=== PATIENT | male | born 1935 | race Caucasian/White ===

== ENCOUNTER 2018-10-20 21:05 | Observation (INO) | payer MEDICARE, OTHER, SELFPAY ==
[2018-10-20 21:38] VITALS: BMI 20.7
[2018-10-20 21:46] VITALS: BP 139/71; PULSE 62; RESP 18; TEMP 36.6; O2SAT 95; BMI 20.7
[2018-10-20 21:51] LABS: Microscopic, Urine URINE MICROSCOPIC (MICROSCOPIC)
--- NOTE | 2018-10-20 21:52 | CT_ITS ---
CT abdomen pelvis wo con CLINICAL INDICATION: Urinary retention ITS.REASON: urine retention ORDERING PHYSICIAN: Juice Brown MD PATIENT AGE: 83 years COMPARISON: None TECHNIQUE: Axial images obtained with sagittal and coronal reformats. All CT scans at the facility use one or more dose reduction, viz: automated exposure control, ma/kV adjustment per patient size (including targeted exams where dose is matched to indication, i.e. head), or iterative reconstruction technique. PROCEDURE: Oral Contrast: None IV Contrast: None . FINDINGS: There are mild atelectatic changes in the lung bases. Coronary artery calcifications are noted. The liver, gallbladder, spleen, adrenal glands, pancreas, and kidneys have an unremarkable appearance. There is a small umbilical hernia containing fat. Wilson catheter present. Moderate amount of retained colonic feces. No intestinal obstruction or free air. No evidence of appendicitis or diverticulitis. Postsurgical changes of the right hip. Vertebral planus of L3 IMPRESSION: 1. Mild constipation. No acute abdominal or pelvic findings. 2. Wilson catheter in place. No hydronephrosis. No renal or ureteral calculi. 3. Vertebra plana of L3
[2018-10-20 21:53] LABS: Appearance,Urine CLEAR (Clear); Bilirubin,Urine Negative (Negative); Blood, Urine Negative (Negative); Color,Urine YELLOW (Yellow); Glucose,Urine (UA) Negative (Negative); Ketones,Urine Negative (Negative); Leukocyte Esterase,Urine 1+ (Negative); Nitrate,Urine Negative (Negative); Protein,Urine Negative (Negative)
[2018-10-20 21:56] LABS: WBC,Urine 20-50 #/hpf (0-3)
--- NOTE | 2018-10-20 21:59 | HMH.EDUROGM ---
ED Disposition Clinical Impression: Renal insufficiency, Elevated erythrocyte sedimentation rate Urinary tract infection Qualifiers: Urinary tract infection type: site unspecified Hematuria presence: without hematuria Qualified Code(s): N39.0 - Urinary tract infection, site not specified Anemia Qualifiers: Anemia type: unspecified type Qualified Code(s): D64.9 - Anemia, unspecified Disposition: Admitted as Observation Condition on Discharge: Good Instructions: DI for Urinary Tract Infection (UTI), DI for Urinary Tract Infection in Children Referrals: Juice Brown MD [Primary Care Provider] - - Critical Care Critical Care Time: No Attestation: On 10/20/18, the high probability of a clinically significant, sudden or life threatening deterioration of the following system(s) required my full and direct attention, intervention and personal management. The time I documented below is in addition to time spent performing reported procedures but includes the following listed in this critical care notation. Medical Decision Making - Medical Records Medical records reviewed: Yes: I reviewed the patient's medical records. - John Inquiry Pt receiving controlled substance: No Vital Signs: 10/20/18 21:46 10/20/18 23:42 Temperature 97.8 F Temperature Source Oral Pulse Rate [Right] 62 59 L Respiratory Rate 18 20 Blood Pressure [Right Arm] 139/71 134/58 L Blood Pressure Mean [Right Arm] 93 83 Blood Pressure Source [Right Arm] Automatic Cuff Automatic Cuff Blood Pressure Position [Right Arm] Supine Sitting 02 Sat by Pulse Oximetry 95 98 Oxygen Delivery Method Room Air Room Air - Lab Data Lab results reviewed: Yes: I reviewed the patient's lab results. Lab Results 10/20/18 21:45: Urine Color Yellow, Urine Appearance Clear, Urine pH 7.0, Ur Specific Lovely 1.010, Urine Protein Negative, Urine Glucose (UA) Negative, Urine Ketones Negative, Urine Blood Negative, Urine Nitrate Negative, Urine Bilirubin Negative, Urine Urobilinogen 2.0, Ur Leukocyte Esterase 1+ A, Urine WBC 20-50 10/20/18 21:55: WBC 10.6, RBC 3.69 L, Hgb 12.2 L, Hct 37.1 L, MCV 100.3 H, MCH 33.1 H, MCHC 33.0, RDW 13.7, Plt Count 373, MPV 7.2 L, Neut % (Auto) 39.7, Lymph % (Auto) 45.9, [place] % (Auto) 5.7, Eos % (Auto) 7.5, Baso % (Auto) 1.2, Neut # (Auto) 4.2, Lymph # (Auto) 4.9 H, [place] # (Auto) 0.6, Eos # (Auto) 0.8 H, Baso # (Auto) 0.1, ESR 53 H 10/20/18 21:55: Sodium 137, Potassium 4.0, Chloride 100, Carbon Dioxide 31, Anion Gap 10.0, BUN 26 H, Creatinine 1.49 H, Estimated Creat Clear 33, Estimated GFR 45 L, Est GFR ( Amer) 54 L, Glucose 102, Calcium 8.9, Total Bilirubin 0.3, AST 11 L, ALT 17, Alkaline Phosphatase 99, C-Reactive Protein 1.5 H, Total Protein 8.3 H, Albumin 3.5, Globulin 4.8 H, Albumin/Globulin Ratio 0.7 L 10/20/18 23:02: Lactate 0.8 Result diagrams: 10/20/18 21:55 10/20/18 21:55 Orders (Tests/Meds): ORDERS Category Date Time Status CT abdomen pelvis wo con Stat Cat Scan 10/20/18 21:52 Taken Blood Culture Stat Micro 10/20/18 23:02 Received Urine Culture Stat Micro 10/20/18 21:45 Received - CT Data CT Scan: Abdomen, Pelvis Time Received: 00:[address] Reviewed: Yes: I have viewed the radiologist's interpretation Preliminary Findings: Abnormal (nonspecific) Male Urogenital HPI - General Chief complaint: Urogenital-Male Stated complaint: Burning and cant uninate Time Seen by Provider: 10/20/18 21:55 Mode of Arrival: Wheelchair Source of Information: Patient, Relative, Medical Record Limitations: No Limitations Description of Symptoms (Recalled from ER Triage Doc. by RN): Pt unable to urinate today - History of Present Illness HPI Narrative: pt with dec urination and pain with urination over the last few days with dec po intake - no vomiting MD Complaint: dysuria Onset (ago): day(s) Duration: intermittent Severity: moderate Reports: denies other symptoms - Related Data Home Medications Medicati
[2018-10-20 22:15] LABS: Basophils # 0.1 K/mm3 (0-0.2); Basophils % 1.2 % (0.1-2.0); Eosinophils # 0.8 K/mm3 (0.0-0.4); Eosinophils % 7.5 % (0.1-12.0); Hematocrit 37.1 % (42.0-52.0); Hemoglobin 12.2 g/dL (14.1-18.0); Lymphocytes # 4.9 K/mm3 (0.7-4.5); Lymphocytes % 45.9 % (10-50); Mean Corpuscular Hemoglobin 33.1 pg (27.0-31.2); Mean Corpuscular Volume 100.3 fl (80-94); Mean Platelet Volume 7.2 fl (7.4-10.4); Monocytes # 0.6 K/mm3 (0.1-1.0); Monocytes % 5.7 % (1.7-9.3); Neutrophils # 4.2 K/mm3 (1.8-7.8); Neutrophils % 39.7 % (37.0-80.0); Platelet Count 373 K/mm3 (142-424); Red Blood Count 3.69 M/mm3 (4.60-6.20); Red Cell Distribution Width 13.7 % (11.5-17.5); White Blood Count 10.6 K/mm3 (4.8-10.8)
[2018-10-20 22:26] LABS: Alanine Aminotransferase 17 U/L (12-78); Albumin Level 3.5 gm/dL (3.4-5.0); Albumin/Globulin Ratio 0.7 (1.1-1.8); Alkaline Phosphatase 99 U/L (46-116); Aspartate Amino Transferase 11 U/L (15-37); Bilirubin,Total 0.3 mg/dL (0.2-1.0); Blood Urea Nitrogen 26 mg/dL (7-18); C-Reactive Protein 1.5 mg/L (0.0-0.9); Calcium 8.9 mg/dL (8.5-10.1); Carbon Dioxide 31 mmol/L (21.0-32.0); Chloride 100 mmol/L (98-107); Creatinine Clearance Estimated 33 mL/min (50-200); Creatinine,Serum 1.49 mg/dL (0.70-1.30); Estimated Glomerular Filt Rate 45 ml/min (>60); GFR (African American) 54 ML/MIN (>60); Globulin 4.8 gm/dl (1.3-3.2); Glucose 102 mg/dL (74-106); Sodium 137 mmol/L (136-145); Total Protein,Serum 8.3 gm/dL (6.4-8.2)
[2018-10-20 22:53] LABS: Erythrocyte Sedimentation Rate 53 mm/hr (0-20)
[2018-10-20 23:24] LABS: Lactic Acid 0.8 mmol/L (0.4-2.0)
[2018-10-20 23:42] VITALS: BP 134/58; PULSE 59; RESP 20; O2SAT 98
[2018-10-21 00:34] VITALS: BP 136/64; PULSE 64; RESP 16; TEMP 36.6; O2SAT 96
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
[2018-10-21 00:56] VITALS: BP 164/75; PULSE 56; RESP 18; TEMP 36.5; O2SAT 99; BMI 21.7
--- NOTE | 2018-10-21 01:00 | PC.NURSE ---
PT ARRIVED TO FLOOR VIA @ [phone]
[2018-10-21 01:19] VITALS: BMI 21.7
[2018-10-21 03:56] VITALS: BP 133/60; PULSE 67; RESP 17; TEMP 36.6; O2SAT 98
--- NOTE | 2018-10-21 05:34 | PC.NURSE ---
Pt arrived to med/surg department via wheelchair at 0100 at which time he received a bath. Pt has garbled speech and very [place] which makes conversation difficult. Urine junky and pt has reddened area on bilateral groin. Normal Saline infusing well and pt used urinal one time with 100ml recorded. Pt is not steady on his feet and quite weak in attempting to stand. He reports falling twice this past week, trying to get out of bed and into his wheelchair; once landing on buttocks and once landing on his right hip which he reports being tender but no visible bruising or redness identified even though he [facility], orbien and floor. C/o pain in multiple areas rating a 10 out of 10, PRN pain medication given with no further complaints and pt dozing off to sleep following administration with covers over his head as he reported that's how he likes to sleep. All safety measures in place per [facility] protocol, pt gave return demonstration environmental aide light use and it is w/i reach, will continue monitoring.
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
[2018-10-21 06:34] LABS: Basophils # 0.1 K/mm3 (0-0.2); Eosinophils # 0.8 K/mm3 (0.0-0.4); Eosinophils % 7.7 % (0.1-12.0); Hematocrit 34.3 % (42.0-52.0); Hemoglobin 11.3 g/dL (14.1-18.0); Lymphocytes % 39.7 % (10-50); Mean Corpuscular HGB Conc 32.8 g/dL (31.8-35.4); Mean Corpuscular Hemoglobin 32.9 pg (27.0-31.2); Mean Corpuscular Volume 100.2 fl (80-94); Mean Platelet Volume 7.1 fl (7.4-10.4); Monocytes # 0.6 K/mm3 (0.1-1.0); Monocytes % 5.9 % (1.7-9.3); Neutrophils # 4.6 K/mm3 (1.8-7.8); Neutrophils % 45.7 % (37.0-80.0); Platelet Count 340 K/mm3 (142-424); Red Blood Count 3.43 M/mm3 (4.60-6.20); Red Cell Distribution Width 13.6 % (11.5-17.5)
[2018-10-21 06:42] LABS: Anion Gap 9.7 mEq/L (5-15); Blood Urea Nitrogen 20 mg/dL (7-18); Calcium 8.6 mg/dL (8.5-10.1); Carbon Dioxide 30 mmol/L (21.0-32.0); Chloride 101 mmol/L (98-107); Creatinine Clearance Estimated 42 mL/min (50-200); Creatinine,Serum 1.24 mg/dL (0.70-1.30); Estimated Glomerular Filt Rate 56 ml/min (>60); GFR (African American) 67 ML/MIN (>60); Glucose 91 mg/dL (74-106); Magnesium 1.9 mg/dL (1.4-2.2); Potassium 3.7 mmoL/L (3.5-5.1); Sodium 137 mmol/L (136-145)
--- NOTE | 2018-10-21 07:02 | HMH.HP ---
*Admission Date: 10/21/18 *Chief complaint: Burning with urination *History of present illness: 83-year-old male with history of urinary tract infections presented to our emergency department with complaint of burning with urination. Patient himself this morning denies ever having fevers, nausea, vomiting. Patient does have a history of urinary tract infections and until recently had been living in [place] so most of his medical visits outside of office visits occurred through the [facility] in emergency department. Patient also has known coronary artery disease, peripheral arterial disease and chronic kidney disease as well as a severely arthritic right hip that requires assistive device to ambulate and for which she takes pain medication. In the past patient is even required indwelling catheter for his urinary tract infections although during a rehabilitation stay at a custodial facility patient remove the catheter on his own resulting in injury to the penis and urethra. [facility] History I have reviewed the patient's past medical history: Yes Medical History: Reports:: Chronic Obstructive Pulmonary Disease (COPD), Coronary Artery Disease Denies:: Cancer, Diabetes Mellitus Type 1, Diabetes Mellitus Type 2, MRSA *Have you ever received a pneumonia vaccine?: No *Have you received a flu vaccine this season?: Yes Comment:: Chronic kidney disease Laterality Cases: Right: Other, Bilateral: Cataract Other Surgeries: Yes: Cardiac Catheterization, Coronary Stent (x5) Amputation: No - *Social History Educational Level: Completed Grade School Smoking Status: Former smoker Tobacco Type: cigarettes # Packs/Day (cigarettes): 1 #Yrs smoked (if former smoker): 57 Smoking End Date: 2004 Alcohol Intake: never *Occupational Status:: retired Housing: house Household Members: family *Travel in the last 8 weeks: None - Psychiatric History Expresses thoughts of harming self/others: None Suicide Plan Description: No Plan Family Hx:: Unable to obtain Review of Systems - Review of Systems Review of systems:: pertinent systems reviewed and negative unless documented below - Constitutional Denies anorexia, Denies body ache(s), Denies chills, Denies daytime sleepiness, Denies excessive sweating, Denies fatigue, Denies fever(s), Denies lack of energy, Denies malaise, Denies weakness - ENT Reports abnormal hearing - *Cardiovascular Denies chest pain, Denies chest pain at rest - *Respiratory Denies chest congestion, Denies cough, Denies shortness of breath - *Gastrointestinal Denies abdominal pain, Denies belching, Denies bloating, Denies change in bowel habits, Denies constipation, Denies loose stools - *Genitourinary Reports difficulty urinating, Reports painful urination, Reports urinary hesitancy, Denies genital lesions, Denies genital pain, Denies blood in urine, Denies scrotal swelling, Denies urinary frequency - *Neurologic Denies seizure-like activity Meds Home Medications Medication Instructions Recorded Confirmed Type Clopidogrel Bisulfate [Clopidogrel 75 mg PO DAILY 04/27/18 04/27/18 History 75mg Tab] Finasteride [Proscar 5mg Tablet] 5 mg PO DAILY 04/27/18 04/27/18 History Furosemide [Furosemide 40MG tAB] 40 mg PO DAILY 04/27/18 04/27/18 History Gabapentin [Gabapentin 100mg Cap] 100 mg PO TID 04/27/18 04/27/18 History Losartan Potassium 50 mg PO DAILY 04/27/18 04/27/18 History Meclizine HCl [Antivert 25mg 25 mg PO TID 04/27/18 04/27/18 History tablet] Metoprolol Succinate 25 mg PO DAILY 04/27/18 04/27/18 History Omeprazole [Omeprazole 40mg 40 mg PO DAILY 04/27/18 04/27/18 History Capsule] Oxycodone HCl [Oxycodone (IR) 10mg 10 mg PO BID 04/27/18 04/27/18 History Tab] Potassium Chloride [Klor-con 20 20 meq PO DAILY 04/27/18 04/27/18 History mEq tablet] Tamsulosin HCl [Flomax 0.4mg 0.4 mg PO HS 04/27/18 04/27/18 History capsule] Allergies Allergy/AdvReac Type Severity [place]
--- NOTE | 2018-10-21 07:05 | P.HP_ITS ---
*Admission Date: 10/21/18 *Chief complaint: Burning with urination *History of present illness: 83-year-old male with history of urinary tract infections presented to our emergency department with complaint of burning with urination. Patient himself this morning denies ever having fevers, nausea, vomiting. Patient does have a history of urinary tract infections and until recently had been living in [place] so most of his medical visits outside of office visits occurred through the [facility] in emergency department. Patient also has known coronary artery disease, peripheral arterial disease and chronic kidney disease as well as a severely arthritic right hip that requires assistive device to ambulate and for which she takes pain medication. In the past patient is even required indwelling catheter for his urinary tract infections although during a rehabilitation stay at a correction facility patient remove the catheter on his own resulting in injury to the penis and urethra. [facility] History I have reviewed the patient's past medical history: Yes Medical History: Reports:: Chronic Obstructive Pulmonary Disease (COPD), Coronary Artery Disease Denies:: Cancer, Diabetes Mellitus Type 1, Diabetes Mellitus Type 2, MRSA *Have you ever received a pneumonia vaccine?: No *Have you received a flu vaccine this season?: Yes Comment:: Chronic kidney disease Laterality Cases: Right: Other, Bilateral: Cataract Other Surgeries: Yes: Cardiac Catheterization, Coronary Stent (x5) Amputation: No - *Social History Educational Level: Completed Grade School Smoking Status: Former smoker Tobacco Type: cigarettes # Packs/Day (cigarettes): 1 #Yrs smoked (if former smoker): 57 Smoking End Date: 2004 Alcohol Intake: never *Occupational Status:: retired Housing: house Household Members: family *Travel in the last 8 weeks: None - Psychiatric History Expresses thoughts of harming self/others: None Suicide Plan Description: No Plan Family Hx:: Unable to obtain Review of Systems - Review of Systems Review of systems:: pertinent systems reviewed and negative unless documented below - Constitutional Denies anorexia, Denies body ache(s), Denies chills, Denies daytime sleepiness, Denies excessive sweating, Denies fatigue, Denies fever(s), Denies lack of energy, Denies malaise, Denies weakness - ENT Reports abnormal hearing - *Cardiovascular Denies chest pain, Denies chest pain at rest - *Respiratory Denies chest congestion, Denies cough, Denies shortness of breath - *Gastrointestinal Denies abdominal pain, Denies belching, Denies bloating, Denies change in bowel habits, Denies constipation, Denies loose stools - *Genitourinary Reports difficulty urinating, Reports painful urination, Reports urinary hesitancy, Denies genital lesions, Denies genital pain, Denies blood in urine, Denies scrotal swelling, Denies urinary frequency - *Neurologic Denies seizure-like activity Meds Home Medications Medication Instructions Recorded Confirmed Type Clopidogrel Bisulfate [Clopidogrel 75 mg PO DAILY 04/27/18 04/27/18 History 75mg Tab] Finasteride [Proscar 5mg Tablet] 5 mg PO DAILY 04/27/18 04/27/18 History Furosemide [Furosemide 40MG tAB] 40 mg PO DAILY 04/27/18 04/27/18 History Gabapentin [Gabapentin 100mg Cap] 100 mg PO TID 04/27/18 04/27/18 History Losartan Potassium 50 mg PO DAILY 04/27/18 04/27/18 History Meclizine HCl [Antivert 25mg 25 mg PO TID 04/27/18 04/27/18 History tablet] Met[place]
--- NOTE | 2018-10-21 07:07 | HMH.DCSUM ---
General - General Admission date:: 10/21/18 Discharge date: 10/21/18 HPI HPI: 83-year-old male with history of urinary tract infections presented to our emergency department with complaint of burning with urination. Patient himself this morning denies ever having fevers, nausea, vomiting. Patient does have a history of urinary tract infections and until recently had been living in [place] so most of his medical visits outside of office visits occurred through the [facility] in emergency department. Patient also has known coronary artery disease, peripheral arterial disease and chronic kidney disease as well as a severely arthritic right hip that requires assistive device to ambulate and for which she takes pain medication. In the past patient is even required indwelling catheter for his urinary tract infections although during a rehabilitation stay at a alf facility patient remove the catheter on his own resulting in injury to the penis and urethra. Hospital Course Hospital Course: Patient was admitted and observed for worsening signs of infection. Urinary tract infection was treated with Rocephin 1 g intravenously. As the day progressed patient's symptoms of dysuria improved and he never developed fevers. He was discharged home in the afternoon of October 21 Objective Vital signs: Temp Pulse Resp BP Pulse Ox 97.9 F 67 17 133/60 98 10/21/18 03:56 10/21/18 03:56 10/21/18 03:56 10/21/18 03:56 10/21/18 03:56 Results Labs on day of discharge: Labs from last 24 hours 10/21/18 10/21/18 10/20/18 06:17 06:17 23:02 WBC 10.0 RBC 3.43 L Hgb 11.3 L Hct 34.3 L MCV 100.2 H MCH 32.9 H MCHC 32.8 RDW 13.6 Plt Count 340 MPV 7.1 L Neut % (Auto) 45.7 Lymph % (Auto) 39.7 [place] % (Auto) 5.9 Eos % (Auto) 7.7 Baso % (Auto) 1.0 Neut # (Auto) 4.6 Lymph # (Auto) 4.0 [place] # (Auto) 0.6 Eos # (Auto) 0.8 H Baso # (Auto) 0.1 ESR Sodium 137 Potassium 3.7 Chloride 101 Carbon Dioxide 30 Anion Gap 9.7 BUN 20 H Creatinine 1.24 Estimated Creat Clear 42 Estimated GFR 56 L Est GFR ( Amer) 67 D Glucose 91 Lactate 0.8 Calcium 8.6 Magnesium 1.9 Total Bilirubin AST ALT Alkaline Phosphatase C-Reactive Protein Total Protein Albumin Globulin Albumin/Globulin Ratio Urine Color Urine Appearance Urine pH Ur Specific Robinson Urine Protein Urine Glucose (UA) Urine Ketones Urine Blood Urine Nitrate Urine Bilirubin Urine Urobilinogen Ur Leukocyte Esterase Urine WBC 10/20/18 10/20/18 10/20/18 21:55 21:55 21:45 WBC 10.6 RBC 3.69 L Hgb 12.2 L Hct 37.1 L MCV 100.3 H MCH 33.1 H MCHC 33.0 RDW 13.7 Plt Count 373 MPV 7.2 L Neut % (Auto) 39.7 Lymph % (Auto) 45.9 [place] % (Auto) 5.7 Eos % (Auto) 7.5 Baso % (Auto) 1.2 Neut # (Auto) 4.2 Lymph # (Auto) 4.9 H [place] # (Auto) 0.6 Eos # (Auto) 0.8 H Baso # (Auto) 0.1 ESR 53 H Sodium 137 Potassium 4.0 Chloride 100 Carbon Dioxide 31 Anion Gap 10.0 BUN 26 H Creatinine 1.49 H Estimated Creat Clear 33 Estimated GFR 45 L Est GFR ( Amer) 54 L Glucose 102 Lactate Calcium 8.9 Magnesium Total Bilirubin 0.3 AST 11 L ALT 17 Alkaline Phosphatase 99 C-Reactive Protein 1.5 H Total Protein 8.3 H Albumin 3.5 Globulin 4.8 H Albumin/Globulin Ratio 0.7 L Urine Color Yellow Urine Appearance Clear Urine pH 7.0 Ur Specific [place] 1.010 Urine Protein Negative Urine Glucose (UA) Negative Urine Ketones Negative Urine Blood Negative Urine Nitrate Negative Urine Bilirubin Negative Urine Urobilinogen 2.0 Ur Leukocyte Esterase 1+ A Urine WBC 20-50 DS: Diagnosis - Discharge Diagnosis (
--- NOTE | 2018-10-21 07:17 | PC.NURSE ---
Shift report given to Thiago Koehler RN with no changes from previous note.
[2018-10-21 07:47] VITALS: BP 117/52; PULSE 67; RESP 16; TEMP 36.4; O2SAT 98
--- NOTE | 2018-10-21 08:19 | HMH.PHAVTE ---
[facility] Pharmacy VTE Monitoring - Patient Demographics Admission date: 10/20/18 Report Date: 10/21/18 Time: 08:19 Allergies/Adverse Reactions: Patient Allergies cephalexin [From Keflex] Allergy (Verified 10/21/18 00:24) Height: 1.75 m Weight: 66.735 kg Patient Problems: Current Active Problems (Updated 10/21/18 @ 00:16 by Tomas Chi MD) Urinary tract infection (Acute) Renal insufficiency (Acute) Elevated erythrocyte sedimentation rate (Acute) Anemia (Acute) - VTE Risk Labs: VTE Related Lab Results Hgb 11.3 g/dL (14.1-18.0) L 10/21/18 06:17 Hct 34.3 % (42.0-52.0) L 10/21/18 06:17 Plt Count 340 K/mm3 (142-424) 10/21/18 06:17 BUN 20 mg/dL (7-18) H 10/21/18 06:17 Creatinine 1.24 mg/dL (0.70-1.30) 10/21/18 06:17 Estimated Creat Clear 42 mL/min (50-200) 10/21/18 06:17 VTE Score: 2 VTE Risk Level: Very Low Risk - Prophylaxis VTE Prophylaxis Ordered?: Yes Types of VTE Prophylaxis: TEDS Knee High Location of Applied Device: Bilateral Lower Extremeties - VTE Diagnosis Confirmed Treatment or plan recommended: Continue Current Treatment
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
--- NOTE | 2018-10-21 14:58 | PC.NURSE ---
ATTEMPTED TO CALL PT'S SON AT THIS TIME FOR TRANSPORTATION HOME.
[2018-10-21 16:00] VITALS: BP 118/59; PULSE 66; RESP 18; TEMP 37.2; O2SAT 98
--- NOTE | 2018-10-21 16:28 | PC.NURSE ---
tried calling pt's son again. no answer.
== END 2018-10-21 17:50 | disposition home or self-care (01) ==
LOC: ER 21:14 → 2ND 10-21 00:16
PROVIDERS: Admitting Provider Emergency Medicine; Emergency Provider Emergency Medicine; PCP Family Medicine; Visit Provider Family Medicine
DX: N39.0 Urinary tract infection, site not specified (principal); D64.9 Anemia, unspecified; N28.9 Disorder of kidney and ureter, unspecified; R70.0 Elevated erythrocyte sedimentation rate; J44.9 Chronic obstructive pulmonary disease, unspecified; I25.10 Atherosclerotic heart disease of native coronary artery without angina pectoris; N18.9 Chronic kidney disease, unspecified; I73.9 Peripheral vascular disease, unspecified; Z79.02 Long term (current) use of antithrombotics/antiplatelets; Z79.899 Other long term (current) drug therapy; Z88.8 Allergy status to other drugs, medicaments and biological substances; Z87.891 Personal history of nicotine dependence; Z95.5 Presence of coronary angioplasty implant and graft
CPT/HCPCS: 36415; 74176; 80048; 80053; 81001; 83605; 83735; 85025; 85651; 86140; 87040; 87086; 87088; 87186; 96365; 99285; G0378

== ENCOUNTER 2019-01-28 18:51 | Observation (INO) ==
[2019-01-28 19:21] LABS: Basophils % 0.3 % (0.1-2.0); Eosinophils # 0.7 K/mm3 (0.0-0.4); Hematocrit 40.4 % (42.0-52.0); Hemoglobin 13.1 g/dL (14.1-18.0); Lymphocytes # 2.3 K/mm3 (0.7-4.5); Lymphocytes % 19.3 % (10-50); Mean Corpuscular HGB Conc 32.3 g/dL (31.8-35.4); Mean Corpuscular Volume 104.2 fl (80-94); Mean Platelet Volume 7.2 fl (7.4-10.4); Monocytes # 0.6 K/mm3 (0.1-1.0); Monocytes % 5.2 % (1.7-9.3); Neutrophils # 8.3 K/mm3 (1.8-7.8); Neutrophils % 69.1 % (37.0-80.0); Platelet Count 385 K/mm3 (142-424); Red Blood Count 3.88 M/mm3 (4.60-6.20); Red Cell Distribution Width 13.5 % (11.5-17.5)
[2019-01-28 19:25] LABS: Microscopic, Urine URINE MICROSCOPIC (MICROSCOPIC)
--- NOTE | 2019-01-28 19:26 | Emergency Department Note ---
ED Disposition Clinical Impression: Acute urinary retention Altered mental status Qualifiers: Altered mental status type: unspecified Qualified Code(s): R41.82 - Altered mental status, unspecified Disposition: Admitted As Inpatient Condition on Discharge: Good Instructions: DI for Diarrhea and Traveler's Diarrhea -- Adult, DI for Diarrhea and Traveler's Diarrhea -- Child, DI for Nausea -- Adult, DI for Nausea -- Child Referrals: Juice Brown MD [Primary Care Provider] - - Critical Care Critical Care Time: No Attestation: On 01/28/19, the high probability of a clinically significant, sudden or life threatening deterioration of the following system(s) required my full and direct attention, intervention and personal management. The time I documented below is in addition to time spent performing reported procedures but includes the following listed in this critical care notation. Medical Decision Making - Medical Records Medical records reviewed: Yes: I reviewed the patient's medical records. - John Inquiry Pt receiving controlled substance: No Vital Signs: 01/28/19 18:52 01/28/19 19:00 01/28/19 19:52 Temperature 98.1 F 98.1 F 100.5 F H Temperature Source Oral Oral Rectal Pulse Rate [Right Brachial] 87 87 82 Respiratory Rate 18 18 18 Blood Pressure [Right Arm] 112/60 112/60 118/62 Blood Pressure Mean [Right Arm] 77 77 80 Blood Pressure Source [Right Arm] Automatic Cuff Automatic Cuff Automatic Cuff Blood Pressure Position [Right Arm] Sitting Sitting Sitting 02 Sat by Pulse Oximetry 97 97 97 Oxygen Delivery Method Room Air Room Air Room Air 01/28/19 20:00 01/28/19 21:00 Temperature Temperature Source Pulse Rate [Right Brachial] 82 82 Respiratory Rate 18 18 Blood Pressure [Right Arm] 117/59 L 122/61 Blood Pressure Mean [Right Arm] 78 81 Blood Pressure Source [Right Arm] Automatic Cuff Automatic Cuff Blood Pressure Position [Right Arm] Sitting Sitting 02 Sat by Pulse Oximetry 97 97 Oxygen Delivery Method Room Air Room Air - Lab Data Lab results reviewed: Yes: I reviewed the patient's lab results. Lab Results 01/28/19 19:10: Urine Color Yellow, Urine Appearance Clear, Urine pH 6.0, Ur Specific [place] 1.015, Urine Protein Negative, Urine Glucose (UA) Negative, Urine Ketones Negative, Urine Blood Negative, Urine Nitrate Negative, Urine Bilirubin Negative, Urine Urobilinogen 0.2, Ur Leukocyte Esterase Negative, Urine WBC 5-10, Ur Squamous Epith Cells Occasional, Urine Bacteria Trace 01/28/19 19:10: WBC 12.0 H, RBC 3.88 L, Hgb 13.1 L, Hct 40.4 L, MCV 104.2 H, MCH 33.6 H, MCHC 32.3, RDW 13.5, Plt Count 385, MPV 7.2 L, Neut % (Auto) 69.1, Lymph % (Auto) 19.3, [place] % (Auto) 5.2, Eos % (Auto) 6.0, Baso % (Auto) 0.3, Neut # (Auto) 8.3 H, Lymph # (Auto) 2.3, [place] # (Auto) 0.6, Eos # (Auto) 0.7 H, Baso # (Auto) 0.0 01/28/19 19:10: Sodium 140, Potassium 3.8, Chloride 103, Carbon Dioxide 26, Anion Gap 14.8, BUN 17, Creatinine 1.19, Estimated Creat Clear 50, Estimated GFR 58 L, Est GFR ( Amer) 70, Glucose 92, Calcium 9.4, Total Bilirubin 0.3, AST 18, ALT 20, Alkaline Phosphatase 79, Total Protein 7.9, Albumin 3.6, Globulin 4.3 H, Albumin/Globulin Ratio 0.8 L 01/28/19 19:10: Lipase 80 01/28/19 19:50: Lactate 1.1 Result diagrams: 01/28/19 19:10 01/28/19 19:10 Orders (Tests/Meds): ED MEDICATIONS Generic Name Dose Route Start Last Admin Trade Name Freq PRN Reason Stop Dose Admin Sodium Chloride 1,000 mls @ 999 mls/hr 01/28/19 20:00 01/28/19 19:56 Sod Chlor 0.9% 1000ml Bag IV 01/28/19 21:00 999 mls/hr .[id number] MARIAH Administration Discontinued Medications Generic Name Dose Route Start Last Admin Trade Name Freq PRN Reason Stop Dose Admin Ioversol 75 ml 01/28/19 20:29 01/28/19 20:29 Rad-Optiray 350 100ml Vial IV 01/28/19 20:30 75 ml ONCE ONE Administration Protocol Sodium Chloride 10 ml 01/28/19 20:29 01/28/19 20:29 Rad-Saline Flush 10ml Syringe IV 01/28/19 20:30 10 ml ONCE ONE Administration ORDERS Category Date Time Status CT abdomen pelvis w con Stat Cat Scan 01/28/19 19:34 Taken CXR AP view [XR chest AP] Stat Exams 01/28/19 19:33 Taken Diarrhea 23 Panel, PCR Stat Lab 01/28/19 19:08 Ordered Blood Culture Stat Micro 01/28/19 19:50 Received Urine Culture(cathed specimen) Routine Micro 01/28/19 22:12 Ordered - CT Data CT Scan: Abdomen, Pelvis Time Received: 22:[address] Reviewed: Yes: I have viewed the radiologist's interpretation - ECG Data Tracing #1 Normal Sinus Rhythm: Yes Ischemic changes: non-specific ST-T wave changes Conduction abnormalities present: RBBB - Physician Consults Physician Consulted: shaji Reason -: Admission Nausea/Vomiting/Diarrhea HPI - General Chief complaint: Nausea/Vomiting/Diarrhea Stated complaint: weakness Time Seen by Provider: 01/28/19 19:26 Mode of Arrival: EMS Source of Information: Patient, Medical Record Limitations: No Limitations Description of Symptoms (Recalled from ER Triage Doc. by RN): Pt c/o weakness, abd pain, and diarrhea x 3 days. - History of Present Illness HPI Narrative: this wm was brought by ems with change in mental status with dec po intake and reported diarrhea - pt has hx of memory problem - no chest pain MD complaint: diarrhea, abdominal pain Onset (ago): day(s) Associated Abdominal Pain: Yes Location of pain: diffuse Severity: moderate Associated symptoms: denies other symptoms - Related Data Home Medications Medication Instructions Recorded Confirmed Clopidogrel Bisulfate [Clopidogrel 75 mg PO DAILY 04/27/18 01/28/19 75mg Tab] Finasteride [Proscar 5mg Tablet] 5 mg PO DAILY 04/27/18 01/28/19 Furosemide [Furosemide 40MG tAB] 40 mg PO DAILY 04/27/18 01/28/19 Losartan Potassium 50 mg PO DAILY 04/27/18 01/28/19 Metoprolol Succinate 25 mg PO DAILY 04/27/18 01/28/19 Omeprazole [Omeprazole 40mg 40 mg PO DAILY 04/27/18 01/28/19 Capsule] Potassium Chloride [Klor-con 20 20 meq PO DAILY 04/27/18 01/28/19 mEq tablet] Tamsulosin HCl [Flomax 0.4mg 0.4 mg PO HS 04/27/18 01/28/19 capsule] Allergies Allergy/AdvReac Type Severity Reaction Status Date / Time cephalexin [From Keflex] Allergy Verified 10/21/18 00:24 [facility] History - Hepatitis A Screen Drug use history?: No High risk sexual behaviors?: No History of sexually transmitted infection?: No Currently employed?: No Childcare worker?: No Do you have indoor plumbing?: Yes Do you have electricity?: Yes Attestation statement:: This patient has been screened for Hepatitis A risk factors. I have reviewed the patient's past medical history: Yes Medical History: Reports:: Chronic Obstructive Pulmonary Disease (COPD), Anson nary Artery Disease Denies:: Cancer, Diabetes Mellitus Type 1, Diabetes Mellitus Type 2, MRSA Comment: Chronic kidney disease Laterality Cases: Right: Other Other Surgeries: Yes: Cardiac Catheterization, Coronary Stent (x5) Amputation: No - Social History Smoking Status: Former smoker Tobacco Type: cigarettes # Packs/Day (cigarettes): 1 #Yrs smoked (if former smoker): 57 Alcohol Intake: never Occupational Status: retired Housing: house Household Members: family Family Hx:: Unable to obtain ROS Obtained: Yes All systems reviewed & no additional complaints - Constitutional Constitutional: Reports as per HPI, Reports poor appetite, Reports weakness - Eyes Eyes: Denies change in vision - ENT Ears, Nose, Mouth, and Throat: Denies sore throat - Cardiovascular Cardiovascular: Denies chest pain - Respiratory Respiratory: Yes as per HPI, Yes cough - Gastrointestinal Gastrointestingal: Reports: as per HPI, diarrhea, nausea, vomiting. Denies: black, tarry stools - Genitourinary Male Genitourinary: Denies hematuria - Musculoskeletal Musculoskeletal: Denies joint swelling - Integumentary/Breasts Skin/Breast: Denies rash - Neurologic Neurologic: Denies convulsions Physical Exam - General General appearance: lethargic - Head Head exam: normocephalic - Eye Eye exam: Present: PERRL, EOMI. Absent: scleral icterus - ENT ENT exam: Present: mucous membranes dry - Neck Neck exam: Present: trachea midline - Respiratory Respiratory exam: Absent: respiratory distress - Cardiovascular Cardiovascular exam: Present: regular rate, systolic murmur, +S4 - Abdominal Exam Abdominal exam: Present: soft - Extremities Exam Extremities exam: Present: pedal edema - Neurological Exam Neurological exam: Present: alert, CN II-XII intact, other (confused ) - Skin Skin exam: Absent: rash
[2019-01-28 19:46] LABS: Albumin Level 3.6 gm/dL (3.4-5.0); Albumin/Globulin Ratio 0.8 (1.1-1.8); Anion Gap 14.8 mEq/L (5-15); Bilirubin,Total 0.3 mg/dL (0.2-1.0); Calcium 9.4 mg/dL (8.5-10.1); Globulin 4.3 gm/dl (1.3-3.2); Total Protein,Serum 7.9 gm/dL (6.4-8.2)
[2019-01-28 19:51] LABS: Appearance,Urine CLEAR (Clear); Bilirubin,Urine Negative (Negative); Blood, Urine Negative (Negative); Color,Urine YELLOW (Yellow); Glucose,Urine (UA) Negative (Negative); Ketones,Urine Negative (Negative); Leukocyte Esterase,Urine Negative (Negative); Protein,Urine Negative (Negative); Specific Gravity, Urine 1.015 (1.005-1.030); Urobilinogen,Urine 0.2 EU/dl (0.2)
[2019-01-28 20:02] LABS: Bacteria,Urine Trace /lpf; Squamous Epithelial Cell,Urine Occasional #/hpf (0-5)
[2019-01-28 23:07] LABS: Thyroid Stimulating Hormone 1.42 uIU/ml (0.358-3.740)
[2019-01-29 04:53] LABS: Anion Gap 11.3 mEq/L (5-15)
[2019-01-29 04:59] LABS: Basophils # 0.1 K/mm3 (0-0.2); Basophils % 0.5 % (0.1-2.0); Eosinophils # 0.8 K/mm3 (0.0-0.4); Eosinophils % 7.2 % (0.1-12.0); Hematocrit 33.8 % (42.0-52.0); Lymphocytes # 2.9 K/mm3 (0.7-4.5); Lymphocytes % 27.5 % (10-50); Mean Corpuscular HGB Conc 32.1 g/dL (31.8-35.4); Mean Corpuscular Volume 103.2 fl (80-94); Mean Platelet Volume 7.4 fl (7.4-10.4); Monocytes # 0.7 K/mm3 (0.1-1.0); Monocytes % 6.1 % (1.7-9.3); Neutrophils # 6.3 K/mm3 (1.8-7.8); Neutrophils % 58.7 % (37.0-80.0); Platelet Count 334 K/mm3 (142-424); Red Blood Count 3.28 M/mm3 (4.60-6.20); Red Cell Distribution Width 13.4 % (11.5-17.5); White Blood Count 10.7 K/mm3 (4.8-10.8)
[2019-01-29 05:09] LABS: Hemoglobin 10.9 g/dL (14.1-18.0)
--- NOTE | 2019-01-29 07:37 | History & Physical Report ---
*Admission Date: 01/28/19 *Chief complaint: Diarrhea *History of present illness: 83-year-old male brought to the emergency department because of diarrhea and weakness. Patient was brought by family who is not present this morning and patient himself is unaware of any additional history other than diarrhea for the last 2 to 3 days along with weakness and increasing difficulty ambulating. Patient has a hard time ambulating anyway due to severe osteoarthritis of the right hip for which she will use a crutch to aid with walking. Typically when he comes into the office patient is in a wheelchair. Some additional history was obtained from the ER note. Ultimately patient was admitted due to urinary retention, diarrhea for continued work-up with stool studies pending, and altered mental status. [facility] History I have reviewed the patient's past medical history: Yes Medical History: Reports:: Chronic Obstructive Pulmonary Disease (COPD), Coronary Artery Disease Denies:: Cancer, Diabetes Mellitus Type 1, Diabetes Mellitus Type 2, MRSA *Have you ever received a pneumonia vaccine?: Yes *Have you received a flu vaccine this season?: Yes Other Medical History: Reports: Arthritis Laterality Cases: Right: Other Other Surgeries: Yes: Cardiac Catheterization, Coronary Stent (x5) Amputation: No - *Social History Smoking Status: Former smoker Tobacco Type: cigarettes # Packs/Day (cigarettes): 1 #Yrs smoked (if former smoker): 57 Alcohol Intake: never *Occupational Status:: retired Housing: house Household Members: family *Travel in the last 8 weeks: None - Psychiatric History Expresses thoughts of harming self/others: None Suicide Plan Description: No Plan Family Hx:: Unable to obtain Review of Systems - Constitutional Denies anorexia, Denies body ache(s), Denies chills, Denies fatigue, Denies fever(s) - *Cardiovascular Denies chest pain - *Respiratory Reports chest congestion, Reports cough, Denies shortness of breath - *Gastrointestinal Reports loose stools, Denies abdominal pain, Denies belching, Denies bloating, D enies bright, red blood in stools, Denies black, tarry stools - *Genitourinary Denies difficulty urinating, Denies painful urination - *Neurologic Reports weakness, Denies seizure-like activity Meds Home Medications Medication Instructions Recorded Confirmed Type Clopidogrel Bisulfate [Clopidogrel 75 mg PO DAILY 04/27/18 01/28/19 History 75mg Tab] Finasteride [Proscar 5mg Tablet] 5 mg PO DAILY 04/27/18 01/28/19 History Furosemide [Furosemide 40MG tAB] 40 mg PO DAILY 04/27/18 01/28/19 History Losartan Potassium 50 mg PO DAILY 04/27/18 01/28/19 History Metoprolol Succinate 25 mg PO DAILY 04/27/18 01/28/19 History Omeprazole [Omeprazole 40mg 40 mg PO DAILY 04/27/18 01/28/19 History Capsule] Potassium Chloride [Klor-con 20 20 meq PO DAILY 04/27/18 01/28/19 History mEq tablet] Tamsulosin HCl [Flomax 0.4mg 0.4 mg PO HS 04/27/18 01/28/19 History capsule] Allergies Allergy/AdvReac Type Severity Reaction Status Date / Time cephalexin [From Keflex] Allergy Verified 10/21/18 00:24 Exam Vital signs and Labs for Last 24 Hours: Temp Pulse Resp BP Pulse Ox 98.3 F 66 17 106/57 L 97 01/29/19 04:00 01/29/19 04:00 01/29/19 04:00 01/29/19 04:00 01/29/19 04:00 Laboratory Results - last 24 hr 01/28/19 19:10: Urine Color Yellow, Urine Appearance Clear, Urine pH 6.0, Ur Specific [place] 1.015, Urine Protein Negative, Urine Glucose (UA) Negative, Urine Ketones Negative, Urine Blood Negative, Urine Nitrate Negative, Urine Bilirubin Negative, Urine Urobilinogen 0.2, Ur Leukocyte Esterase Negative, Urine WBC 5-10, Ur Squamous Epith Cells Occasional, Urine Bacteria Trace 01/28/19 19:10: WBC 12.0 H, RBC 3.88 L, Hgb 13.1 L, Hct 40.4 L, MCV 104.2 H, MCH 33.6 H, MCHC 32.3, RDW 13.5, Plt Count 385, MPV 7.2 L, Neut % (Auto) 69.1, Lymph % (Auto) 19.3, [place] % (Auto) 5.2, Eos % (Auto) 6.0, Baso % (Auto) 0.3, Neut # (Auto) 8.3 H, Lymph # (Auto) 2.3, [place] # (Auto) 0.6, Eos # (Auto) 0.7 H, Baso # (Auto) 0.0 01/28/19 19:10: Sodium 140, Potassium 3.8, Chloride 103, Carbon Dioxide 26, Anion Gap 14.8, BUN 17, Creatinine 1.19, Estimated Creat Clear 50, Estimated GFR 58 L, Est GFR ( Amer) 70, Glucose 92, Calcium 9.4, Total Bilirubin 0.3, AST 18, ALT 20, Alkaline Phosphatase 79, Total Protein 7.9, Albumin 3.6, Globulin 4.3 H, Albumin/Globulin Ratio 0.8 L 01/28/19 19:10: Lipase 80 01/28/19 19:10: TSH 1.42, Thyroxine (T4) 7.6 01/28/19 19:50: Lactate 1.1 01/29/19 01:35: Troponin I < 0.02 01/29/19 04:40: Troponin I < 0.02 01/29/19 04:40: WBC 10.7, RBC 3.28 L, Hgb 10.9 L D, Hct 33.8 L, MCV 103.2 H, MCH 33.1 H, MCHC 32.1, RDW 13.4, Plt Count 334, MPV 7.4, Neut % (Auto) 58.7, Lymph % (Auto) 27.5, [place] % (Auto) 6.1, Eos % (Auto) 7.2, Baso % (Auto) 0.5, Neut # (Auto) 6.3, Lymph # (Auto) 2.9, [place] # (Auto) 0.7, Eos # (Auto) 0.8 H, Baso # (Auto) 0.1 01/29/19 04:40: Sodium 141, Potassium 3.3 L, Chloride 106, Carbon Dioxide 27, Anion Gap 11.3, BUN 16, Creatinine 1.25, Estimated Creat Clear 41, Estimated GFR 55 L, Est GFR ( Amer) 67, Glucose 95, Calcium 9.0 I & O for Last 24 hours: Intake & Output 01/26/19 01/27/19 01/28/19 01/29/19 11:59 11:59 11:59 11:59 Intake Total 290 / 290 Output Total 1750 / 1750 Balance -1460 / -1460 Weight 144 lb 6 oz Narrative: Patient is laying in bed. He awakens easily. He is oriented to person and place. He is able to hold conversation and responses are appropriate. Some speech is garbled and difficult to understand which is his baseline. He does not appear to be in any pain or respiratory distress. Oropharynx is moist. Neck has no palpable lymphadenopathy. Lungs are distant but clear. Heart has a regular rate and rhythm. Abdomen is thin and soft. 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 Extremities are warm to the touch and he has active range of motion in all extremities with decreased range of motion on hip flexion in the right hip which is also his baseline. Grossly there is no neurologic deficit Assessment and Plan (1) Acute urinary retention Current visit: Yes Status: Acute Category: Medical Code(s): R33.8 - Other retention of urine (2) Altered mental status Current visit: Yes Status: Acute Qualifiers: Altered mental status type: unspecified Qualified Code(s): R41.82 - Altered mental status, unspecified Category: Medical Code(s): R41.82 - Altered mental status, unspecified (3) Diarrhea Current visit: No Status: Acute Qualifiers: Diarrhea type: unspecified type Qualified Code(s): R19.7 - Diarrhea, unspecified Category: Medical Code(s): R19.7 - Diarrhea, unspecified - Assessment and plan all Dx Assessment and Plan for all problems:: 1. Altered mental status may have been from urinary retention which patient has a history of in his self catheterized at home in the past. Patient reports not feeling any sense of urinary urgency or pressure. 2. Await diarrhea panel 3. PT eval. On 4. Patient has history of urinary tract infections as of contributed to urinary retention and he will be started on empiric levofloxacin
--- NOTE | 2019-01-29 07:40 | Pharmacy Consult Notes ---
[facility] Pharmacy VTE Monitoring - Patient Demographics Admission date: 01/28/19 Report Date: 01/29/19 Time: 07:40 Allergies/Adverse Reactions: Patient Allergies cephalexin [From Keflex] Allergy (Verified 10/21/18 00:24) Height: 1.75 m Weight: 65.487 kg Patient Problems: Current Active Problems Altered mental status (Acute) Acute urinary retention (Acute) - VTE Risk Labs: VTE Related Lab Results Hgb 10.9 g/dL (14.1-18.0) L D 01/29/19 04:40 Hct 33.8 % (42.0-52.0) L 01/29/19 04:40 Plt Count 334 K/mm3 (142-424) 01/29/19 04:40 BUN 16 mg/dL (7-18) 01/29/19 04:40 Creatinine 1.25 mg/dL (0.70-1.30) 01/29/19 04:40 Estimated Creat Clear 41 mL/min (50-200) 01/29/19 04:40 - Prophylaxis VTE Prophylaxis Ordered?: Yes Types of VTE Prophylaxis: TEDS Knee High Location of Applied Device: Bilateral Lower Extremeties - VTE Diagnosis Confirmed Treatment or plan recommended: Continue Current Treatment
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
--- NOTE | 2019-01-29 17:31 | Electrocardiograph Report ---
APPROVED REPORT Exam: Resting ECG HR:84 bpm ECG Measurements Heart Rate 84 AXES HI 160 P 53 QRSd 126 QRS 58 QT 374 T28 QTc 441 <Conclusion> Normal sinus rhythm Right bundle branch block Abnormal ECG Electronically signed by : Jaxson Joaquin, 01/29/2019 17:30:48
[2019-01-30 07:19] LABS: Anion Gap 10.8 mEq/L (5-15)
[2019-01-30 07:20] LABS: Basophils # 0.1 K/mm3 (0-0.2); Basophils % 0.5 % (0.1-2.0); Eosinophils # 0.2 K/mm3 (0.0-0.4); Eosinophils % 2.2 % (0.1-12.0); Hematocrit 34.4 % (42.0-52.0); Hemoglobin 11.2 g/dL (14.1-18.0); Lymphocytes # 2.3 K/mm3 (0.7-4.5); Mean Corpuscular HGB Conc 32.5 g/dL (31.8-35.4); Mean Corpuscular Volume 104.1 fl (80-94); Mean Platelet Volume 7.6 fl (7.4-10.4); Monocytes # 0.6 K/mm3 (0.1-1.0); Monocytes % 5.5 % (1.7-9.3); Neutrophils # 7.8 K/mm3 (1.8-7.8); Neutrophils % 70.8 % (37.0-80.0); Platelet Count 349 K/mm3 (142-424); Red Cell Distribution Width 13.2 % (11.5-17.5)
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
== END 2019-01-30 15:25 | disposition home health service (06) ==
LOC: ER 18:51 → 2ND 18:51
PROVIDERS: ADMIT Internal Medicine Adolescent Medicine; ATTEND Family Medicine
DX: R33.9 Retention of urine, unspecified; I25.10 Atherosclerotic heart disease of native coronary artery without angina pectoris; A04.4 Other intestinal Escherichia coli infections; Z87.891 Personal history of nicotine dependence; R19.7 Diarrhea, unspecified; J44.9 Chronic obstructive pulmonary disease, unspecified; E03.9 Hypothyroidism, unspecified
CPT/HCPCS: 36415; 71010; 71045; 74177; 80048; 80053; 81001; 83605; 83690; 84436; 84443; 84484; 85025; 87040; 87077; 87507; 93005; 96365; 97161; 97530; 99285; G0378; J1956; Q9967

== ENCOUNTER 2019-06-05 03:34 | Observation (INO) ==
--- NOTE | 2019-06-05 03:46 | Emergency Department Note ---
ED Disposition Clinical Impression: Community acquired pneumonia Qualifiers: Laterality: right Lung location: middle lobe of lung Qualified Code(s): J18.9 - Pneumonia, unspecified organism Disposition: Admitted as Observation Condition on Discharge: Fair - Critical Care Critical Care Time: No Attestation: On , the high probability of a clinically significant, sudden or life threatening deterioration of the following system(s) required my full and direct attention, intervention and personal management. The time I documented below is in addition to time spent performing reported procedures but includes the following listed in this critical care notation. Medical Decision Making - John Inquiry Pt receiving controlled substance: No John was queried for this patient: Yes Reference #:: [id number] Comment: 21 rxs. Gets 75 percocet 10mg monthly along with gabapentin Vital Signs: 06/05/19 03:47 06/05/19 05:05 06/05/19 05:29 Temperature 98.7 F Temperature Source Oral Pulse Rate [Right] 96 H 82 82 Respiratory Rate 20 Blood Pressure [Right Arm] 115/57 L 132/61 131/55 L Blood Pressure Mean [Right Arm] 76 84 80 Blood Pressure Source [Right Arm] Automatic Cuff Blood Pressure Position [Right Arm] Sitting 02 Sat by Pulse Oximetry 94 L 96 97 Oxygen Delivery Method Room Air 06/05/19 06:00 06/05/19 06:30 06/05/19 07:02 Temperature Temperature Source Pulse Rate [Right] 80 78 72 Respiratory Rate Blood Pressure [Right Arm] 132/60 114/50 L 119/59 L Blood Pressure Mean [Right Arm] 84 71 79 Blood Pressure Source [Right Arm] Automatic Cuff Blood Pressure Position [Right Arm] Sitting 02 Sat by Pulse Oximetry 95 96 95 Oxygen Delivery Method Room Air - Lab Data Lab Results 06/05/19 03:55: WBC 23.4 H*, RBC 3.20 L, Hgb 11.2 L, Hct 33.0 L, MCV 103.3 H, MCH 35.1 H, MCHC 34.0, RDW 13.5, Plt Count 261, MPV 8.8, Neut % (Auto) 85.0 H, Lymph % (Auto) 11.0, [place] % (Auto) 3.1, Eos % (Auto) 0.6, Baso % (Auto) 0.1, Neut # (Auto) 19.9 H, Lymph # (Auto) 2.6, [place] # (Auto) 0.7, Eos # (Auto) 0.2, Baso # (Auto) 0.0, Total Counted 100, Neutrophils % (Manual) 80 H, Band Neutrophils % 11.0 H, Lymphocytes % (Manual) 9 L, Hypersegmented Neuts 1+, Platelet Estimate Normal, Macrocytosis 2+ 06/05/19 03:55: Sodium 135 L, Potassium 3.8, Chloride 99, Carbon Dioxide 24, Anion Gap 15.8 H, BUN 29 H, Creatinine 1.34 H, Estimated Creat Clear 41, Estimated GFR 51 L, Est GFR ( Amer) 61, Glucose 155 H, Calcium 9.0, Total Bilirubin 0.8, AST 14 L, ALT 15, Alkaline Phosphatase 75, Troponin I < 0.02, Total Protein 7.3, Albumin 3.1 L, Globulin 4.2 H, Albumin/Globulin Ratio 0.7 L, Amylase 20 L, Lipase 44 L 06/05/19 04:07: Urine Color Yellow, Urine Appearance Clear, Urine pH 6.0, Ur Specific Swengel 1.015, Urine Protein Trace, Urine Glucose (UA) Negative, Urine Ketones Negative, Urine Blood Trace-l, Urine Nitrate Negative, Urine Bilirubin Negative, Urine Urobilinogen 4.0, Ur Leukocyte Esterase Negative, Urine RBC Occasional, Amorphous Sediment Trace 06/05/19 05:26: Lactate 0.8 Result diagrams: 06/05/19 03:55 06/05/19 03:55 Orders (Tests/Meds): ED MEDICATIONS Generic Name Dose Route Start Last Admin Trade Name Freq PRN Reason Stop Dose Admin Ceftriaxone Sodium 1 gm/ 50 mls @ 100 mls/hr 06/05/19 05:30 06/05/19 05:46 Sodium Chloride IV 06/19/19 05:29 100 mls/hr Q24H MARIAH Administration Protocol Azithromycin 500 mg/ Sodium 250 mls @ 250 mls/hr 06/05/19 05:30 06/05/19 06:10 Chloride IV 06/19/19 05:29 250 mls/hr Q24H MARIAH Administration Protocol Discontinued Medications Generic Name Dose Route Start Last Admin Trade Name Freq PRN Reason Stop Dose Admin Ioversol 75 ml 06/05/19 05:20 06/05/19 05:21 Rad-Optiray 350 100ml Vial IV 06/05/19 05:21 75 ml ONCE ONE Administration Protocol Sodium Chloride 1,000 ml 06/05/19 04:04 06/05/19 04:11 Sod Chlor 0.9% 1000ml Bag IV 06/05/19 04:05 1,000 ml BOLUS ONE Administration Sodium Chloride 10 ml 06/05/19 05:20 06/05/19 05:21 Rad-Saline Flush 10ml Syringe IV 06/05/19 05:21 10 ml ONCE ONE Administration ORDERS Category Date Time Status CT abdomen pelvis w con Stat Cat Scan 06/05/19 04:04 Taken XR chest portable Stat Exams 06/05/19 04:05 Taken Diarrhea 6-11 Panel, Cdiff PCR Stat Lab 06/05/19 04:04 Ordered Troponin I Q3H Lab 06/05/19 07:15 Ordered Troponin I Q3H Lab 06/05/19 10:15 Ordered Blood Culture Stat Micro 06/05/19 05:25 Received - Radiology Data #1 Image(s): Chest Image Reviewed: Yes I reviewed the patient's radiology image pneumonia right lung - CT Data CT Scan: Abdomen, Pelvis Time Received: 06:52 ([facility] fax) ED CT Reviewed: Yes: I have viewed the radiologist's interpretation Findings Narrative: Pneumonia. No acute abdominal process. - ECG Data Tracing #1 EKG interpreted by Jama Mixon MD: Rhythm: sinus Rate: 85 [place]: normal Ectopy: none Conduction: Right bundle branch block ST Segment Changes: none T Wave Changes: none Q Waves: none No evidence of acute ischemia or injury - Physician Consults Physician Consulted: Georgia Brown Time: 07:00 Reason -: Admission Comment/Response: Agrees to admit the patient to the hospital. We discussed the patient's clinical information, including history, exam, laboratory and radiology results and ED course. Per hospital procedure, I will write temporary bridge inpatient orders on the patient. Specific orders requested by the admitting physician: Continue antibiotics Medical Decision Narrative: Patient has allergy listed take cephalexin, but records here show that he r eceived Rocephin while in the hospital for UTI in October without any apparent adverse reaction. General Adult HPI - General Stated complaint: Stomach pain,dark urine Time Seen by Provider: 06/05/19 03:55 - History of Present Illness HPI narrative: Patient is very hard of hearing and a poor historian. Grandson is also with him here and he is a poor historian as well. Patient says that his stomach is been bothering him for the past 2 weeks. He has had abdominal pain as well as diarrhea. Nakia did not think he had been vomiting, but patient says that he vomited up Cheerios. Grandlaureano says he had a fever before coming in tonight. He also says that the patient has been very weak and feels like he may be dehydrated. Says that he has been "disorientated". Cough for 1 week. Nakia says that he saw Dr. Brown 2 weeks ago and was told that he had a virus. - Related Data Home Medications Medication Instructions Recorded Confirmed Clopidogrel Bisulfate [Clopidogrel 75 mg PO DAILY 04/27/18 06/05/19 75mg Tab] Finasteride [Proscar 5mg Tablet] 5 mg PO DAILY 04/27/18 06/05/19 Furosemide [Furosemide 40MG tAB] 40 mg PO DAILY 04/27/18 06/05/19 Metoprolol Succinate 25 mg PO DAILY 04/27/18 06/05/19 Potassium Chloride [Klor-con 20 20 meq PO DAILY 04/27/18 06/05/19 mEq tablet] Tamsulosin HCl [Flomax 0.4mg 0.4 mg PO HS 04/27/18 06/05/19 capsule] Gabapentin [Gabapentin 100mg Cap] 200 mg PO TID 01/29/19 06/05/19 Losartan Potassium [Cozaar 50mg 50 mg PO DAILY 01/29/19 06/05/19 Tablets] Omeprazole/Sodium Bicarbonate 1 each PO DAILY 01/29/19 06/05/19 [Zegerid 40 mg Capsule] Oxycodone HCl/Acetaminophen 0.5 tab PO PM 01/29/19 06/05/19 [Oxycodone W/Apap 325mg Tablet] Oxycodone HCl/Acetaminophen 1 tab PO BID 01/29/19 06/05/19 [Oxycodone W/Apap 325mg Tablet] Allergies Allergy/AdvReac Type Severity Reaction Status Date / Time cephalexin [From Keflex] Allergy Verified 10/21/18 00:24 [facility] History - Hepatitis A Screen Attestation statement:: This patient has been screened for Hepatitis A risk factors. I have reviewed the patient's past medical history: Yes Medical History: Reports:: Chronic Obstructive Pulmonary Disease (COPD), Coronary Artery Disease Denies:: Cancer, Diabetes Mellitus Type 1, Diabetes Mellitus Type 2, MRSA Other Medical History: Reports: Arthritis Comment: Chronic kidney disease Laterality Cases: Right: Other Other Surgeries: Yes: Cardiac Catheterization, Coronary Stent (x5) Amputation: No - Social History Smoking Status: Former smoker Tobacco Type: cigarettes # Packs/Day (cigarettes): 1 #Yrs smoked (if former smoker): 57 Alcohol Intake: never Occupational Status: retired Housing: house Household Members: family Family Hx:: Unable to obtain ROS Obtained: Yes All systems reviewed & no additional complaints - Constitutional Constitutional: Reports fever(s) - Cardiovascular Cardiovascular: Denies chest pain - Respiratory Respiratory: Yes cough - Gastrointestinal Gastrointestingal: Reports: abdominal pain, diarrhea, nausea, vomiting Physical Exam - General General appearance: alert, in no apparent distress - Head Head exam: atraumatic, normocephalic - Eye Eye exam: Present: normal appearance, EOMI - ENT ENT exam: Present: mucous membranes moist - Neck Neck exam: Present: normal inspection, trachea midline - Chest Chest inspection: Present: normal inspection, symmetric chest wall rise - Respiratory Respiratory exam: Present: normal lung sounds bilaterally. Absent: respiratory distress - Cardiovascular Cardiovascular exam: Present: regular rate, normal rhythm, normal heart sounds - Abdominal Exam Abdominal exam: Present: soft, tenderness, normal bowel sounds. Absent: distention, guarding, rebound, rigidity Abdominal tenderness: Present: diffuse, mild - Extremities Exam Extremities exam: Present: normal inspection - Neurological Exam Neurological exam: Present: alert - Psychiatric Psychiatric exam: Present: normal affect, normal mood - Skin Skin exam: Present: warm, dry
[2019-06-05 04:10] LABS: Basophils % 0.1 % (0.1-2.0); Eosinophils # 0.2 K/mm3 (0.0-0.4); Eosinophils % 0.6 % (0.1-12.0); Hemoglobin 11.2 g/dL (14.1-18.0); Lymphocytes # 2.6 K/mm3 (0.7-4.5); Mean Corpuscular Volume 103.3 fl (80-94); Mean Platelet Volume 8.8 fl (7.4-10.4); Monocytes # 0.7 K/mm3 (0.1-1.0); Monocytes % 3.1 % (1.7-9.3); Neutrophils # 19.9 K/mm3 (1.8-7.8); Platelet Count 261 K/mm3 (142-424); Red Cell Distribution Width 13.5 % (11.5-17.5)
[2019-06-05 04:11] LABS: Microscopic, Urine URINE MICROSCOPIC (MICROSCOPIC)
[2019-06-05 04:17] LABS: White Blood Count 23.4 K/mm3 (4.8-10.8)
[2019-06-05 04:28] LABS: Alanine Aminotransferase 15 U/L (12-78); Albumin Level 3.1 gm/dL (3.4-5.0); Albumin/Globulin Ratio 0.7 (1.1-1.8); Alkaline Phosphatase 75 U/L (46-116); Amylase 20 U/L (25-115); Anion Gap 15.8 mEq/L (5-15); Aspartate Amino Transferase 14 U/L (15-37); Bilirubin,Total 0.8 mg/dL (0.2-1.0); Blood Urea Nitrogen 29 mg/dL (7-18); Carbon Dioxide 24 mmol/L (21.0-32.0); Chloride 99 mmol/L (98-107); Globulin 4.2 gm/dl (1.3-3.2); Glucose 155 mg/dL (74-106); Sodium 135 mmol/L (136-145); Total Protein,Serum 7.3 gm/dL (6.4-8.2)
[2019-06-05 04:48] LABS: Lymphocytes % 9 % (10-50); Macrocytosis 2+; Neutrophils % 80 % (42-76); Total Cells Counted 100
[2019-06-05 04:55] LABS: Appearance,Urine CLEAR (Clear); Bilirubin,Urine Negative (Negative); Blood, Urine TRACE-L (Negative); Color,Urine YELLOW (Yellow); Glucose,Urine (UA) Negative (Negative); Ketones,Urine Negative (Negative); Leukocyte Esterase,Urine Negative (Negative); Protein,Urine TRACE (Negative); Specific Gravity, Urine 1.015 (1.005-1.030)
[2019-06-05 04:56] LABS: Amorphous Sediment,Urine Trace /lpf; RBC,Urine Occasional #/hpf (0-3)
--- NOTE | 2019-06-05 08:55 | History & Physical Report ---
*Admission Date: 06/05/19 *Chief complaint: Abdominal pain, vomiting, fever, cough *History of present illness: 84-year-old male with COPD and coronary artery disease was brought to the emergency department by family due to multiple seemingly unconnected complaints. I have taken some of the history from the ER note where it is reported that family endorse patient had a cough and fever at home. The patient apparently told the ER physician or staff that he had had some abdominal pain for the last 2 weeks and had also experienced vomiting. At the time of my interview with the patient around 9 AM the morning of admission patient admits to a cough with clear sputum production but no fevers. He denies shortness of breath. He denies abdominal pain or vomiting. He tells me the reason he was brought to the emergency department is because "my boys want me to walk". Patient has an arthritic hip which impairs his ability to ambulate and it has been this way for at least the last 5 years. Patient typically uses a wheelchair but on good days can use a single crutch to aid with ambulation. In the emergency department a work-up was begun and patient was found to have pneumonia in the right lung. White blood cell count was elevated at 24,000 and decision was made to admit the patient for community-acquired pneumonia and to treat with IV antibiotics. [facility] History I have reviewed the patient's past medical history: Yes Medical History: Reports:: Chronic Obstructive Pulmonary Disease (COPD), Coronary Artery Disease Denies:: Cancer, Diabetes Mellitus Type 1, Diabetes Mellitus Type 2, MRSA *Have you ever received a pneumonia vaccine?: Yes *Have you received a flu vaccine this season?: Yes Other Medical History: Reports: Arthritis Laterality Cases: Right: Other Other Surgeries: Yes: Cardiac Catheterization, Coronary Stent (x5) Amputation: No - *Social History Smoking Status: Former smoker Tobacco Type: cigarettes # Packs/Day (cigarettes): 1 #Yrs smoked (if former smoker): 57 Alcohol Intake: never Substance Use Type: denies use *Occupational Status:: retired Housing: house Household Members: family *Travel in the last 8 weeks: None Family Hx:: Unable to obtain Review of Systems - Constitutional Denies anorexia, Denies body ache(s), Denies chills, Denies fever(s) - *Cardiovascular Denies chest pain, Denies chest pain at rest - *Respiratory Reports cough, Denies change in phlegm color, Denies chest congestion, Denies shortness of breath - *Gastrointestinal Denies abdominal pain Meds Home Medications Medication Instructions Recorded Confirmed Type Clopidogrel Bisulfate [Clopidogrel 75 mg PO DAILY 04/27/18 06/05/19 History 75mg Tab] Finasteride [Proscar 5mg Tablet] 5 mg PO DAILY 04/27/18 06/05/19 History Furosemide [Furosemide 40MG tAB] 40 mg PO DAILY 04/27/18 06/05/19 History Metoprolol Succinate 25 mg PO DAILY 04/27/18 06/05/19 History Potassium Chloride [Klor-con 20 20 meq PO DAILY 04/27/18 06/05/19 History mEq tablet] Tamsulosin HCl [Flomax 0.4mg 0.4 mg PO HS 04/27/18 06/05/19 History capsule] Gabapentin [Gabapentin 100mg Cap] 200 mg PO TID 01/29/19 06/05/19 History Losartan Potassium [Cozaar 50mg 50 mg PO DAILY 01/29/19 06/05/19 History Tablets] Omeprazole/Sodium Bicarbonate 1 each PO DAILY 01/29/19 06/05/19 History [Zegerid 40 mg Capsule] Oxycodone HCl/Acetaminophen 0.5 tab PO PM 01/29/19 06/05/19 History [Oxycodone W/Apap 325mg Tablet] Oxycodone HCl/Acetaminophen 1 tab PO BID 01/29/19 06/05/19 History [Oxycodone W/Apap 325mg Tablet] Allergies Allergy/AdvReac Type Severity Reaction Status Date / Time cephalexin [From Keflex] Allergy Verified 10/21/18 00:24 Exam Vital signs and Labs for Last 24 Hours: Temp Pulse Resp BP Pulse Ox 98.1 F 70 18 109/50 L 95 06/05/19 07:48 06/05/19 07:48 06/05/19 07:48 06/05/19 07:48 06/05/19 07:02 Laboratory Results - last 24 hr 06/05/19 03:55: WBC 23.4 H*, RBC 3.20 L, Hgb 11.2 L, Hct 33.0 L, MCV 103.3 H, MCH 35.1 H, MCHC 34.0, RDW 13.5, Plt Count 261, MPV 8.8, Neut % (Auto) 85.0 H, Lymph % (Auto) 11.0, [place] % (Auto) 3.1, Eos % (Auto) 0.6, Baso % (Auto) 0.1, Neut # (Auto) 19.9 H, Lymph # (Auto) 2.6, [place] # (Auto) 0.7, Eos # (Auto) 0.2, Baso # (Auto) 0.0, Total Counted 100, Neutrophils % (Manual) 80 H, Band Neutro phils % 11.0 H, Lymphocytes % (Manual) 9 L, Hypersegmented Neuts 1+, Platelet Estimate Normal, Macrocytosis 2+ 06/05/19 03:55: Sodium 135 L, Potassium 3.8, Chloride 99, Carbon Dioxide 24, Anion Gap 15.8 H, BUN 29 H, Creatinine 1.34 H, Estimated Creat Clear 41, Estimated GFR 51 L, Est GFR ( Amer) 61, Glucose 155 H, Calcium 9.0, Total Bilirubin 0.8, AST 14 L, ALT 15, Alkaline Phosphatase 75, Troponin I < 0.02, Total Protein 7.3, Albumin 3.1 L, Globulin 4.2 H, Albumin/Globulin Ratio 0.7 L, Amylase 20 L, Lipase 44 L 06/05/19 04:07: Urine Color Yellow, Urine Appearance Clear, Urine pH 6.0, Ur Specific [place] 1.015, Urine Protein Trace, Urine Glucose (UA) Negative, Urine Ketones Negative, Urine Blood Trace-l, Urine Nitrate Negative, Urine Bilirubin Negative, Urine Urobilinogen 4.0, Ur Leukocyte Esterase Negative, Urine RBC Occasional, Amorphous Sediment Trace 06/05/19 05:26: Lactate 0.8 I & O for Last 24 hours: Intake & Output 06/02/19 06/03/19 06/04/19 06/05/19 11:59 11:59 11:59 11:59 Weight 160 lb - Constitutional no acute distress - *Routine HEENT Exam Head: Present: normocephalic Eye: Present: EOMI, PERRL ENT: Present: mucous membranes moist - *Routine Neck Exam Present: supple. Absent: lymphadenopathy - *Routine Respiratory Exam Present: rales (right mid and lower lung) - *Routine Cardiovascular Exam Present: RRR - *Routine Abdominal Exam Present: soft, normoactive bowel sounds - *Routine Extremities Exam Absent: clubbing, edema - *Routine Skin Exam Present: intact. Absent: erythema Assessment and Plan (1) Coronary artery disease Current visit: Yes Status: Acute Category: Medical Code(s): I25.10 - Atherosclerotic heart disease of [place] coronary artery without angina pectoris (2) COPD (chronic obstructive pulmonary disease) Current visit: Yes Status: Acute Category: Medical Code(s): J44.9 - Chronic obstructive pulmonary disease, unspecified (3) Community acquired pneumonia Current visit: Yes Status: Acute Qualifiers: Laterality: right Lung location: middle lobe of lung Qualified Code(s): J18.9 - Pneumonia, unspecified organism Category: Medical Code(s): J18.9 - Pneumonia, unspecified organism - Assessment and plan all Dx Assessment and Plan for all problems:: 1. Patient is been admitted for treatment of community-acquired pneumonia with Rocephin and azithromycin. He will be monitored for the next 24 hours but if he does not develop any oxygen requirement nor significant respiratory difficulties and white blood cell count response to antibiotics he will be discharged tomorrow 2. Patient will also be observed for any GI complaints.
--- NOTE | 2019-06-05 09:50 | Pharmacy Consult Notes ---
[facility] Pharmacy VTE Monitoring - Patient Demographics Allergies/Adverse Reactions: Patient Allergies cephalexin [From Keflex] Allergy (Verified 10/21/18 00:24) Height: 1.68 m Weight: 63.758 kg Patient Problems: Current Active Problems Community acquired pneumonia (Acute) Coronary artery disease (Acute) COPD (chronic obstructive pulmonary disease) (Acute) - VTE Risk Labs: VTE Related Lab Results Hgb 11.2 g/dL (14.1-18.0) L 06/05/19 03:55 Hct 33.0 % (42.0-52.0) L 06/05/19 03:55 Plt Count 261 K/mm3 (142-424) 06/05/19 03:55 BUN 29 mg/dL (7-18) H 06/05/19 03:55 Creatinine 1.34 mg/dL (0.70-1.30) H 06/05/19 03:55 Estimated Creat Clear 41 mL/min (50-200) 06/05/19 03:55 Was VTE Risk Assessment Performed: Yes VTE Score: 4 VTE Risk Level: Low Risk Clinical Trial Participant: No - Prophylaxis VTE Prophylaxis Ordered?: Yes Types of VTE Prophylaxis: TEDS Knee High
[2019-06-06 06:33] LABS: Basophils # 0.1 K/mm3 (0-0.2); Basophils % 0.2 % (0.1-2.0); Eosinophils # 0.9 K/mm3 (0.0-0.4); Eosinophils % 4.5 % (0.1-12.0); Hematocrit 33.5 % (42.0-52.0); Hemoglobin 10.9 g/dL (14.1-18.0); Lymphocytes # 4.3 K/mm3 (0.7-4.5); Lymphocytes % 20.2 % (10-50); Mean Corpuscular HGB Conc 32.4 g/dL (31.8-35.4); Mean Corpuscular Volume 104.1 fl (80-94); Mean Platelet Volume 8.3 fl (7.4-10.4); Monocytes # 0.6 K/mm3 (0.1-1.0); Monocytes % 2.8 % (1.7-9.3); Neutrophils # 15.2 K/mm3 (1.8-7.8); Neutrophils % 72.4 % (37.0-80.0); Platelet Count 267 K/mm3 (142-424); Red Blood Count 3.22 M/mm3 (4.60-6.20); Red Cell Distribution Width 13.2 % (11.5-17.5); White Blood Count 21.1 K/mm3 (4.8-10.8)
--- NOTE | 2019-06-06 07:13 | Progress Note ---
Internal Medicine - PN: Subj *Date: 06/06/19 *Time: 07:12 Interval history: Patient reports feeling short of breath this morning. He did have a decrease in O2 saturation to 89% earlier this morning. He has a mild cough. He denies abdominal pain this morning Exam Vital signs and Labs for Last 24 Hours: Temp Pulse Resp BP Pulse Ox 98.4 F 72 17 114/81 89 L 06/06/19 03:48 06/06/19 05:57 06/06/19 03:48 06/06/19 03:48 06/06/19 05:57 Laboratory Results - last 24 hr 06/06/19 06:17: WBC 21.1 H*, RBC 3.22 L, Hgb 10.9 L, Hct 33.5 L, MCV 104.1 H, MCH 33.7 H, MCHC 32.4, RDW 13.2, Plt Count 267, MPV 8.3, Neut % (Auto) 72.4, Lymph % (Auto) 20.2, [place] % (Auto) 2.8, Eos % (Auto) 4.5, Baso % (Auto) 0.2, Neut # (Auto) 15.2 H, Lymph # (Auto) 4.3, [place] # (Auto) 0.6, Eos # (Auto) 0.9 H, Baso # (Auto) 0.1 I & O for Last 24 hours: Intake & Output 06/03/19 06/04/19 06/05/19 06/06/19 11:59 11:59 11:59 11:59 Intake Total 1812 / 1812 Output Total 200 / 200 1700 / 1700 Balance -200 / -200 112 / 112 Weight 140 lb 9 oz 142 lb 2 oz Narrative: He does not appear to be in any respiratory distress. Oropharynx is moist and clear. Lungs have rales in the right mid chest heard best laterally and anteriorly. Heart has a regular rate and rhythm. Assessment and Plan (1) Community acquired pneumonia Current visit: Yes Status: Acute Qualifiers: Laterality: right Lung location: middle lobe of lung Qualified Code(s): J18.9 - Pneumonia, unspecified organism Category: Medical Code(s): J18.9 - Pneumonia, unspecified organism (2) Coronary artery disease Current visit: Yes Status: Acute Category: Medical Code(s): I25.10 - Atherosclerotic heart disease of [place] coronary artery without angina pectoris (3) COPD (chronic obstructive pulmonary disease) Current visit: Yes Status: Acute Category: Medical Code(s): J44.9 - Chronic obstructive pulmonary disease, unspecified - Assessment and plan all Dx Assessment and Plan for all problems:: Continue IV antibiotics and add incentive spirometry
[2019-06-06 09:18] LABS: Eosinophils % 8 % (0-3); Lymphocytes % 19 % (10-50); Macrocytosis 1+; Monocytes % 2 % (2-9); Neutrophils % 71 % (42-76); Total Cells Counted 100
[2019-06-07 07:07] LABS: Basophils # 0.1 K/mm3 (0-0.2); Basophils % 0.4 % (0.1-2.0); Eosinophils # 1.4 K/mm3 (0.0-0.4); Eosinophils % 9.2 % (0.1-12.0); Hemoglobin 11.2 g/dL (14.1-18.0); Lymphocytes # 3.2 K/mm3 (0.7-4.5); Lymphocytes % 20.5 % (10-50); Mean Corpuscular HGB Conc 32.9 g/dL (31.8-35.4); Mean Corpuscular Volume 103.2 fl (80-94); Mean Platelet Volume 9.1 fl (7.4-10.4); Monocytes # 0.6 K/mm3 (0.1-1.0); Monocytes % 3.7 % (1.7-9.3); Neutrophils # 10.4 K/mm3 (1.8-7.8); Neutrophils % 66.2 % (37.0-80.0); Platelet Count 299 K/mm3 (142-424); Red Blood Count 3.29 M/mm3 (4.60-6.20); Red Cell Distribution Width 13.2 % (11.5-17.5); White Blood Count 15.7 K/mm3 (4.8-10.8)
--- NOTE | 2019-06-07 07:38 | Discharge Summary ---
General - General Admission date:: 06/05/19 Discharge date: 06/07/19 HPI HPI: 84-year-old male with COPD and coronary artery disease was brought to the emergency department by family due to multiple seemingly unconnected complaints. I have taken some of the history from the ER note where it is reported that family endorse patient had a cough and fever at home. The patient apparently told the ER physician or staff that he had had some abdominal pain for the last 2 weeks and had also experienced vomiting. At the time of my interview with the patient around 9 AM the morning of admission patient admits to a cough with clear sputum production but no fevers. He denies shortness of breath. He denies abdominal pain or vomiting. He tells me the reason he was brought to the emergency department is because "my boys want me to walk". Patient has an arthritic hip which impairs his ability to ambulate and it has been this way for at least the last 5 years. Patient typically uses a wheelchair but on good days can use a single crutch to aid with ambulation. In the emergency department a work-up was begun and patient was found to have pneumonia in the right lung. White blood cell count was elevated at 24,000 and decision was made to admit the patient for community-acquired pneumonia and to treat with IV antibiotics. Hospital Course Hospital Course: Patient was admitted and started on Rocephin and azithromycin for treatment of community-acquired pneumonia of the right lower lobe. For the first 24 hours of admission the patient remained on room air with slight decrease in O2 sats to 89%. Patient never developed any respiratory distress but did have periodic desaturations to 88% on the morning of discharge. Despite his desaturation there was no respiratory distress. Patient initially presented with a dry cough but over 48 hours of admission his cough loosened and was becoming productive. Blood cultures returned negative. Patient was medically stable for discharge and was discharged home where he will continue supplemental oxygen and a course of antibiotics. He will follow-up in the office in 1 week Objective Vital signs: Temp Pulse Resp BP Pulse Ox 98.2 F 98 H 19 134/53 L 88 L 06/07/19 03:49 06/07/19 06:10 06/07/19 03:49 06/07/19 03:49 06/07/19 06:10 Narrative: Patient is in no distress and resting comfortably. He awakens easily. He is oriented to person and place. Lungs revealed some crackles in the right lower lateral chest although they become less audible with deep breathing and coughing. Heart has a regular rate and rhythm Results Labs on day of discharge: Labs from last 24 hours 06/07/19 06/06/19 06:23 06:17 WBC 15.7 H D RBC 3.29 L Hgb 11.2 L Hct 34.0 L MCV 103.2 H MCH 34.0 H MCHC 32.9 RDW 13.2 Plt Count 299 MPV 9.1 Neut % (Auto) 66.2 Lymph % (Auto) 20.5 [place] % (Auto) 3.7 Eos % (Auto) 9.2 Baso % (Auto) 0.4 Neut # (Auto) 10.4 H Lymph # (Auto) 3.2 [place] # (Auto) 0.6 Eos # (Auto) 1.4 H Baso # (Auto) 0.1 Total Counted 100 Neutrophils % (Manual) 71 Lymphocytes % (Manual) 19 Monocytes % (Manual) 2 Eosinophils % (Manual) 8 H Platelet Estimate Normal Macrocytosis 1+ Preliminary micro results at discharge 06/05/19 05:25 Blood Culture - Preliminary Blood NO GROWTH AFTER 48 HOURS 06/05/19 05:25 Blood Culture - Preliminary Blood NO GROWTH AFTER 48 HOURS DS: Diagnosis - Discharge Diagnosis (1) Community acquired pneumonia Status: Acute (2) Coronary artery disease Status: Acute (3) COPD (chronic obstructive pulmonary disease) Status: Acute Discharge Plan - Patient Discharge Instructions ACTIVITY: Continue current activity Patient Instructions: DI for Pneumonia -- Adult - Follow up Plan Follow up with: Juice Brown MD [Primary Care Provider] - 1 week Disposition: Home, Self-Long-Term Medications: Home Medications Medication Instructions Recorded Confirmed Type Clopidogrel Bisulfate [Clopidogrel 75 mg PO DAILY 04/27/18 06/05/19 History 75mg Tab] Finasteride [Proscar 5mg Tablet] 5 mg PO DAILY 04/27/18 06/05/19 History Furosemide [Furosemide 40MG tAB] 40 mg PO DAILY 04/27/18 06/05/19 History Metoprolol Succinate 25 mg PO DAILY 04/27/18 06/05/19 History Potassium Chloride [Klor-con 20 20 meq PO DAILY 04/27/18 06/05/19 History mEq tablet] Tamsulosin HCl [Flomax 0.4mg 0.4 mg PO HS 04/27/18 06/05/19 History capsule] Gabapentin [Gabapentin 100mg Cap] 200 mg PO TID 01/29/19 06/05/19 History Losartan Potassium [Cozaar 50mg 50 mg PO DAILY 01/29/19 06/05/19 History Tablets] Oxycodone HCl/Acetaminophen 0.5 tab PO PM 01/29/19 06/05/19 History [Oxycodone W/Apap 325mg Tablet] Oxycodone HCl/Acetaminophen 1 tab PO BID 01/29/19 06/05/19 History [Oxycodone W/Apap 325mg Tablet] Omeprazole 40 mg PO DAILY 06/05/19 06/05/19 History levoFLOXacin [Levofloxacin 750MG 750 mg PO DAILY #7 tab 06/07/19 Rx Tablet] methylPREDNISolone [Medrol] 4 mg PO DIRECTED #21 pack 06/07/19 Rx Prescriptions/Medication Reconciliation: New levoFLOXacin [Levofloxacin 750MG Tablet] 750 mg PO DAILY #7 tab methylPREDNISolone [Medrol] 4 mg PO DIRECTED #21 pack Continued Tamsulosin HCl [Flomax 0.4mg capsule] 0.4 mg PO HS Potassium Chloride [Klor-con 20 mEq tablet] 20 meq PO DAILY Furosemide [Furosemide 40MG tAB] 40 mg PO DAILY Metoprolol Succinate 25 mg PO DAILY Finasteride [Proscar 5mg Tablet] 5 mg PO DAILY Clopidogrel Bisulfate [Clopidogrel 75mg Tab] 75 mg PO DAILY Gabapentin [Gabapentin 100mg Cap] 200 mg PO TID Oxycodone HCl/Acetaminophen [Oxycodone W/Apap 325mg Tablet] 1 tab PO BID Losartan Potassium [Cozaar 50mg Tablets] 50 mg PO DAILY Omeprazole 40 mg PO DAILY Oxycodone HCl/Acetaminophen [Oxycodone W/Apap 325mg Tablet] 0.5 tab PO PM - Problem Reconciliation Problems Reviewed?: Yes
--- NOTE | 2019-06-07 08:10 | Electrocardiograph Report ---
APPROVED REPORT Exam: Resting ECG HR:85 bpm ECG Measurements Heart Rate 85 AXES NM 174 P 68 QRSd 134 QRS 64 QT 374 T39 QTc 445 <Conclusion> Normal sinus rhythm Right bundle branch block Abnormal ECG Electronically signed by : Juice Mace, 06/07/2019 08:10:21
[2019-06-07 08:59] LABS: Eosinophils % 7 % (0-3); Lymphocytes % 18 % (10-50); Macrocytosis 1+; Monocytes % 6 % (2-9); Neutrophils % 69 % (42-76); Total Cells Counted 100
== END 2019-06-07 13:38 | disposition home or self-care (01) ==
LOC: 2ND 03:34 → ER 03:34 → 2ND 08:35
PROVIDERS: ADMIT Internal Medicine Adolescent Medicine; ATTEND Family Medicine
CPT/HCPCS: 36415; 71010; 71045; 74177; 80053; 81001; 82150; 83605; 83690; 84484; 85007; 85025; 87040; 93005; 94640; 94761; 96367; 99285; G0378; J0456; J2405; Q9967

== ENCOUNTER → 2019-12-08 13:53 | Outpatient (CLI) | payer MEDICARE, MEDICAID, SELFPAY | PROVIDERS: PCP Emergency Medicine; Visit Provider Emergency Medicine | DX: L03.012 Cellulitis of left finger (principal) | CPT/HCPCS: 87070; 87077; 87186; 87205 ==

== ENCOUNTER → 2019-12-25 14:01 | Outpatient (CLI) | payer MEDICARE, MEDICAID, SELFPAY ==
[2019-12-25 14:05] LABS: Microscopic, Urine URINE MICROSCOPIC (MICROSCOPIC)
[2019-12-25 14:20] LABS: Appearance,Urine CLEAR (Clear); Bilirubin,Urine Negative (Negative); Blood, Urine Negative (Negative); Color,Urine YELLOW (Yellow); Glucose,Urine (UA) Negative (Negative); Ketones,Urine Negative (Negative); Leukocyte Esterase,Urine Negative (Negative); Nitrate,Urine Negative (Negative); Protein,Urine TRACE (Negative); Specific Gravity, Urine 1.015 (1.005-1.030)
[2019-12-25 14:47] LABS: Bacteria,Urine Trace /lpf
== END ==
PROVIDERS: Visit Provider Emergency Medicine
DX: D72.9 Disorder of white blood cells, unspecified (principal)
CPT/HCPCS: 81001

== ENCOUNTER → 2020-01-20 13:21 | Outpatient (CLI) | payer MEDICARE, MEDICAID, SELFPAY ==
--- NOTE | 2020-01-20 13:26 | XR_ITS ---
PROCEDURE: XR SHOULDER RT MIN 2V CLINICAL INDICATION: RT shoulder pain COMPARISON: No exams were available for comparison FINDINGS: There are osteoarthritic changes of the acromioclavicular joint. There is subacromial stenosis with a subacromial space measuring 5 mm. Cortical regularity involves the humeral head with cortical lucency of the humeral head superiorly. There are mild osteoarthritic changes of glenohumeral joint. IMPRESSION: Osteoarthritis with subacromial stenosis. Subcortical lucency of the humeral head. 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 Dictated by: Tony Tierney MD 01/20/2020 14:46 Tony Tierney MD in [place] 01/20/2020 14:46
== END ==
PROVIDERS: PCP Emergency Medicine; Visit Provider Orthopaedic Surgery
DX: M25.511 Pain in right shoulder (principal)
CPT/HCPCS: 73030

== ENCOUNTER 2020-01-23 18:20 | Inpatient (IN) | payer MEDICARE, MEDICAID, SELFPAY ==
[2020-01-23] VITALS (21 sets, daily range): BP systolic 68–111; BP diastolic 37–64; PULSE 76–113; RESP 15–19; TEMP 36.8; O2SAT 90–108; BMI 20.8; BMI 23.5
--- NOTE | 2020-01-23 18:25 | CT_ITS ---
PROCEDURE: CT ABDOMEN PELVIS WO CON CLINICAL INDICATION: gi bleed Bleed, vomiting blood, bright red blood in stool COMPARISON: CT CT ABDOMEN PELVIS W CON from 06/05/2019 TECHNIQUE: Axial images obtained with sagittal and coronal reformats. All CT scans at the facility use one or more dose reduction, viz: automated exposure control, ma/kV adjustment per patient size (including targeted exams where dose is matched to indication, i.e. head), or iterative reconstruction technique. FINDINGS: LOWER THORAX: Chronic changes with atelectasis or infiltrate in right lung base posteriorly. ABDOMEN & PELVIS: The liver and spleen have an unremarkable appearance. There are scattered small foci of increased density within the gallbladder posteriorly consistent with cholelithiasis. Diffuse motion artifact obscures fine detail. Scattered nondilated fluid-filled loops of small and large bowel are present and could be due to enterocolitis. There is a medium-sized hiatal hernia. The adrenal glands, kidneys, and pancreas have an unremarkable appearance. There is mild thickening of the urinary bladder wall which could be due to nondistention or mild cystitis. Artifact present gamma nail and intramedullary harrison in the right hip. 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 Chronic wedge compression fracture involves L3 IMPRESSION: 1. Cholelithiasis 2. Hiatal hernia. 3. Possible enterocolitis Dictated by: Tony Tierney MD 01/24/2020 07:08 Tony Tierney MD in [facility] 01/24/2020 07:08
[2020-01-23 18:36] LABS: Basophils # 0.1 K/mm3 (0-0.2); Basophils % 0.4 % (0.1-2.0); Eosinophils # 0.5 K/mm3 (0.0-0.4); Eosinophils % 2.2 % (0.1-12.0); Hemoglobin 9.4 g/dL (14.1-18.0); Lymphocytes # 7.3 K/mm3 (0.7-4.5); Lymphocytes % 34.2 % (10-50); Mean Corpuscular HGB Conc 32.3 g/dL (31.8-35.4); Mean Corpuscular Hemoglobin 33.6 pg (27.0-31.2); Mean Platelet Volume 7.9 fl (7.4-10.4); Monocytes # 1.1 K/mm3 (0.1-1.0); Monocytes % 5.3 % (1.7-9.3); Neutrophils # 12.4 K/mm3 (1.8-7.8); Platelet Count 420 K/mm3 (142-424); Red Blood Count 2.79 M/mm3 (4.60-6.20); Red Cell Distribution Width 13.5 % (11.5-17.5); White Blood Count 21.4 K/mm3 (4.8-10.8)
[2020-01-23 18:39] LABS: MANUAL DIFFERENTIAL MANUAL DIFFERENTIAL (MANUAL DIFF)
[2020-01-23 18:40] LABS: Chloride 107 mmol/L (98-107); Sodium 137 mmol/L (136-145)
[2020-01-23 18:42] LABS: Alanine Aminotransferase 15 U/L (12-78); Amylase 58 U/L (30-110); Aspartate Amino Transferase 20 U/L (17-59); Blood Urea Nitrogen 73 mg/dl (9-20); Carbon Dioxide 20 mmol/L (22.0-30.0); Creatinine Clearance Estimated 29 mL/min (50-200); Estimated Glomerular Filt Rate 38 ml/min (>60); GFR (African American) 47 ML/MIN (>60)
[2020-01-23 18:43] LABS: Albumin Level 3.7 g/dl (3.5-5.0); Albumin/Globulin Ratio 1.1 (1.1-1.8); Alkaline Phosphatase 69 U/L (38-126); Bilirubin,Total 0.3 mg/dl (0.2-1.3); Calcium 9.5 mg/dl (8.4-10.2); Globulin 3.4 g/dL (1.3-3.2); Glucose 173 mg/dl (74-100); Lipase 98 U/L (23-300); Total Protein,Serum 7.1 g/dl (6.3-8.2)
[2020-01-23 18:49] LABS: Anion Gap 16.4 mEq/L (5-15); Anisocytosis 1+; Eosinophils % 2 % (0-3); Lymphocytes % 33 % (10-50); Macrocytosis 1+; Monocytes % 4 % (2-9); Neutrophils % 61 % (42-76); Platelet Estimate Normal; Total Cells Counted 100
[2020-01-23 18:50] LABS: Potassium 6.4 mmoL/L (3.5-5.1)
--- NOTE | 2020-01-23 18:50 | ECG_ITS ---
APPROVED REPORT Exam: Resting ECG HR:83 bpm ECG Measurements Heart Rate 83 AXES QRSd 122 QRS 65 QT 352 T 30 QTc 413 <Conclusion> Wide QRS rhythm Right bundle branch block Abnormal ECG Electronically signed by : Juice Mace, 01/24/2020 07:11:42
--- NOTE | 2020-01-23 18:57 | [facility].EDABDPAI ---
ED Disposition Clinical Impression: Chronic kidney disease, Acute hyperkalemia, Upper GI bleed, Acute on chronic anemia, Leukocytosis, unspecified, RBBB Disposition: Admitted As Inpatient Condition on Discharge: Serious Instructions: DI for Acute Abdomen Referrals: PCP,No [Primary Care Provider] - - Critical Care Critical Care Time: Yes Attestation: On 01/23/20, the high probability of a clinically significant, sudden or life threatening deterioration of the following system(s) required my full and direct attention, intervention and personal management. The time I documented below is in addition to time spent performing reported procedures but includes the following listed in this critical care notation. 30 mins total Total Critical Care Time: 30 Vital system(s) involved:: Metabolic Failure, Renal Failure, Shock (Hemorrhage) My critical care processes included: Assessment & monitoring of V/S, Initial and Re-exams, Data Review/Interpretation, Coordinating Care, Medication Orders and management, Documentation Medical Decision Making - Medical Records Medical records reviewed: Yes: I reviewed the patient's medical records. - John Inquiry Pt receiving controlled substance: No Vital Signs: 01/23/20 18:20 01/23/20 18:22 01/23/20 18:50 Temperature 98.2 F Temperature Source Oral Pulse Rate [Right Radial] 82 85 91 H Respiratory Rate 15 16 Blood Pressure [Right Arm] 110/64 110/64 Blood Pressure Mean [Right Arm] 79 79 Blood Pressure Source [Right Arm] Automatic Cuff Blood Pressure Position [Right Arm] Supine 02 Sat by Pulse Oximetry 100 100 97 Oxygen Delivery Method Room Air Room Air Room Air Oxygen Flow Rate (LPM) 01/23/20 19:23 Temperature Temperature Source Pulse Rate [Right Radial] 96 H Respiratory Rate 18 Blood Pressure [Right Arm] 111/58 L Blood Pressure Mean [Right Arm] 75 Blood Pressure Source [Right Arm] Blood Pressure Position [Right Arm] 02 Sat by Pulse Oximetry 100 Oxygen Delivery Method Nasal Cannula Oxygen Flow Rate (LPM) 2 - Lab Data Lab Results 01/23/20 18:20: WBC 21.4 H*, RBC 2.79 L, Hgb 9.4 L, Hct 29.0 L, MCV 104.0 H, MCH 33.6 H, MCHC 32.3, RDW 13.5, Plt Count 420, MPV 7.9, Neut % (Auto) 58.0, Lymph % (Auto) 34.2, [place] % (Auto) 5.3, Eos % (Auto) 2.2, Baso % (Auto) 0.4, Neut # (Auto) 12.4 H, Lymph # (Auto) 7.3 H, [place] # (Auto) 1.1 H, Eos # (Auto) 0.5 H, Baso # (Auto) 0.1, Total Counted 100, Neutrophils % (Manual) 61, Lymphocytes % (Manual) 33, Monocytes % (Manual) 4, Eosinophils % (Manual) 2, Platelet Estimate Normal, Anisocytosis 1+, Macrocytosis 1+ 01/23/20 18:20: Sodium 137, Potassium 6.4 H*, Chloride 107, Carbon Dioxide 20 L, Anion Gap 16.4 H, BUN 73 H, Creatinine 1.70 H, Estimated Creat Clear 29, Estimated GFR 38 L, Est GFR ( Amer) 47 L, Glucose 173 H, Calcium 9.5, Total Bilirubin 0.3, AST 20, ALT 15, Alkaline Phosphatase 69, Total Protein 7.1, Albumin 3.7, Globulin 3.4 H, Albumin/Globulin Ratio 1.1, Amylase 58, Lipase 98 01/23/20 18:44: Blood Type A Positive, Antibody Screen Negative 01/23/20 18:44: Lactate 1.3 Result diagrams: 01/23/20 18:20 01/23/20 18:20 Orders (Tests/Meds): ED MEDICATIONS Generic Name Dose Route Start Last Admin Trade Name Freq PRN Reason Stop Dose Admin Sodium Chloride 1,000 mls @ 999 mls/hr 01/23/20 18:30 01/23/20 18:36 Sod Chlor 0.9% 1000ml Bag IV 01/23/20 19:30 999 mls/hr .Q1H1M MARIAH Administration Pantoprazole Sodium 80 mg/ 100 mls @ 10 mls/hr 01/23/20 19:27 01/23/20 18:37 Sodium Chloride IV 01/26/20 19:26 10 mls/hr .Q10H MARIAH Administration Ceftriaxone Sodium 1 gm/ 50 mls @ 100 mls/hr 01/23/20 18:45 01/23/20 19:20 Sodium Chloride IV 02/06/20 18:44 100 mls/hr Q24H MARIAH Administration Protocol Discontinued Medications Generic Name Dose Route Start Last Admin Trade Name Freq PRN Reason Stop Dose Admin Albuterol Sulfate 2.5 mg 01/23/20 18:52 01/23/20 19:23 Albuterol 0.083% 2.5mg/3
[2020-01-23 19:28] LABS: Lactic Acid 1.3 mmol/L (0.7-2.1)
[2020-01-23 20:10] LABS: Coronavirus 19 IgG Antibody Negative (Negative); Coronavirus 19 IgM Antibody Negative (Negative)
[2020-01-23 20:30] LABS: Bilirubin,Urine Negative (Negative); Blood, Urine TRACE-I (Negative); Color,Urine YELLOW (Yellow); Glucose,Urine (UA) Negative (Negative); Ketones,Urine Negative (Negative); Leukocyte Esterase,Urine 3+ (Negative); Microscopic, Urine URINE MICROSCOPIC (MICROSCOPIC); Nitrate,Urine POSITIVE (Negative); PH,Urine 8.5 (5.0-8.5); Protein,Urine Negative (Negative); Specific Gravity, Urine 1.015 (1.005-1.030); Urobilinogen,Urine 0.2 EU/dl (0.2)
[2020-01-23 20:31] LABS: Appearance,Urine Cloudy (Clear)
[2020-01-23 20:37] LABS: Bacteria,Urine 2+ /lpf; WBC,Urine TNTC #/hpf (0-3)
--- NOTE | 2020-01-23 21:58 | PC.NURSE ---
Levophed increased to 15 MCG/min
[2020-01-23 22:01] LABS: Occult Blood,Stool Positive (Negative)
--- NOTE | 2020-01-23 22:03 | [facility].SEPSISRE ---
[facility] Tissue Perfusion Eval Sepsis Re-Evaluation Performed: Yes Date Performed: 01/23/20 Time Performed: 21:30
--- NOTE | 2020-01-23 22:20 | PC.NURSE ---
PT ARRIVED TO THE FLOOR VIA STRETCHER WITH STAFF FROM ED AT 801
[2020-01-23 23:03] LABS: Basophils # 0.1 K/mm3 (0-0.2); Basophils % 0.2 % (0.1-2.0); Eosinophils # 0.1 K/mm3 (0.0-0.4); Eosinophils % 0.3 % (0.1-12.0); Lymphocytes # 3.5 K/mm3 (0.7-4.5); Lymphocytes % 16.2 % (10-50); Mean Corpuscular HGB Conc 31.2 g/dL (31.8-35.4); Mean Corpuscular Hemoglobin 33.1 pg (27.0-31.2); Mean Corpuscular Volume 106.2 fl (80-94); Mean Platelet Volume 8.1 fl (7.4-10.4); Monocytes % 4.6 % (1.7-9.3); Neutrophils # 17.2 K/mm3 (1.8-7.8); Neutrophils % 78.7 % (37.0-80.0); Platelet Count 315 K/mm3 (142-424); Red Blood Count 1.82 M/mm3 (4.60-6.20); Red Cell Distribution Width 13.6 % (11.5-17.5); White Blood Count 21.8 K/mm3 (4.8-10.8)
[2020-01-23 23:17] LABS: Hematocrit 19.3 % (42.0-52.0)
--- NOTE | 2020-01-23 23:17 | PC.NURSE ---
notified of critical labs Hgb 6.0, Hct 19.3.
[2020-01-24] VITALS (53 sets, daily range): BP systolic 75–158; BP diastolic 35–86; PULSE 87–124; RESP 16–20; TEMP 36.6–37.7; O2SAT 96–100; BMI 23.5
--- NOTE | 2020-01-24 00:10 | PC.NURSE ---
Pt has had 2 dark, liquid BM's since arrival to floor. [place] called to verify code status and for contacts. Consent for blood obtained per son, Gutierrez Bejarano on phone. Verified with Gorge Grier RN and on chart. Pt remains on Levophed gtt, currently on 18 mcg/min. Protonix infusing @ 10 ml/hr. NS infusing. Will continue to monitor.
--- NOTE | 2020-01-24 02:21 | PC.NURSE ---
1st unit of blood transfusing at this time. Pt has tolerated well. VS improving. Pt has had one additional BM for a total of 3 dark, liquid stools thus far. Levophed titrated down from 20 mcg/min to 18 mcg/min. Protonix infusing at 10 ml/hr. Will continue to monitor.
--- NOTE | 2020-01-24 06:16 | PC.NURSE ---
Pt awake in bed. Tolerating unit #2 of PRBC's. VSS. Levophed gtt infusing @ 2 mcg/min. Protonix infusing at 10 ml/hr. Will continue to monitor.
--- NOTE | 2020-01-24 06:17 | PC.NURSE ---
levophed titration 2235 - 16 mcg/min 2250 - 18 mcg/min 0130 - 20 mcg/min 0210 - 18 mcg/min 0307 - 16 mcg/min 0328 - 14 mcg/min 0434 - 10 mcg/min 0445 - 8 mcg/min 0500 - 6 mcg/min 0520 - 4 mcg/min 0535 - 2 mcg/min
--- NOTE | 2020-01-24 06:56 | PC.NURSE ---
Levophed gtt off at this time. MD Chi aware.
--- NOTE | 2020-01-24 07:21 | P.CONPHA_ITS ---
[facility] Pharmacy VTE Monitoring - Patient Demographics Admission date: 01/23/20 Report Date: 01/24/20 Time: 07:21 Allergies/Adverse Reactions: Patient Allergies cephalexin [From Keflex] Allergy (Verified 01/23/20 18:25) Height: 1.75 m Weight: 71.923 kg Patient Problems: Current Active Problems Chronic kidney disease (Acute) Acute hyperkalemia (Acute) Upper GI bleed (Acute) Acute on chronic anemia (Acute) Leukocytosis, unspecified (Acute) RBBB (Chronic) - VTE Risk Labs: VTE Related Lab Results Hgb 6.0 g/dL (14.1-18.0) L* D 01/23/20 22:57 Hct 19.3 % (42.0-52.0) L* 01/23/20 22:57 Plt Count 315 K/mm3 (142-424) 01/23/20 22:57 BUN 73 mg/dl (9-20) H 01/23/20 18:20 Creatinine 1.70 mg/dl (0.66-1.25) H 01/23/20 18:20 Estimated Creat Clear 29 mL/min (50-200) 01/23/20 18:20 VTE Risk Level: Moderate Risk - Prophylaxis VTE Prophylaxis Ordered?: Yes Types of VTE Prophylaxis: TEDS Knee High Location of Applied Device: Bilateral Lower Extremeties
--- NOTE | 2020-01-24 07:30 | PC.NURSE ---
2nd unit of PRBC's completed at 0704. Pt tolerated well. Post H&H for 0804. Report given to Yanira Warner RN
--- NOTE | 2020-01-24 08:01 | HMH.PHAINT ---
MEDICATION RECONCILIATION COMPLETED ON PATIENT USING MAR FROM INTERMEDIATE. -ROSALBA ESCOBEDO, LUIS ANGELD
[2020-01-24 08:17] LABS: Hemoglobin 8.6 g/dL (14.1-18.0)
--- NOTE | 2020-01-24 08:30 | PC.NURSE ---
reported h/h to griselda oneal
--- NOTE | 2020-01-24 08:30 | HMH.HP ---
*Admission Date: 01/23/20 *Chief complaint: abd pain *History of present illness: 84-year-old male presented to the emergency department with vomiting blood. Patient does have evidence of dried blood around the oropharynx. He is on antiplatelet agent. Patient was given fluid bolus prior to arrival. This time patient was started on Protonix. [facility] History I have reviewed the patient's past medical history: Yes Medical History: Reports:: Chronic Obstructive Pulmonary Disease (COPD), Coronary Artery Disease, Hyperlipidemia, Hypertension Denies:: Cancer, Diabetes Mellitus Type 1, Diabetes Mellitus Type 2, MRSA *Have you ever received a pneumonia vaccine?: Yes *Have you received a flu vaccine this season?: Yes Other Medical History: Reports: Anemia, Arthritis Laterality Cases: Right: Other Other Surgeries: Yes: Cardiac Catheterization, Coronary Stent Amputation: No - *Social History Smoking Status: Former smoker Tobacco Type: cigarettes # Packs/Day (cigarettes): 1 #Yrs smoked (if former smoker): 57 Alcohol Intake: never Substance Use Type: denies use *Occupational Status:: retired Housing: house Household Members: family *Travel in the last 8 weeks: None Family Hx:: Unable to obtain Review of Systems - Constitutional Reports fatigue, Denies body ache(s) - Eyes Denies bulging eyes - ENT Denies nosebleed - *Cardiovascular Denies chest pain with activity - *Respiratory Denies chest congestion - *Gastrointestinal Reports nausea, Reports vomiting, Denies bloating - *Genitourinary Denies urinary frequency - *Musculoskeletal Denies joint pain - Integumentary/Breasts Denies rash - *Neurologic Denies headache(s), Denies tingling/numbness/burning sensations - Psychiatric Denies anxiety - Endocrine Denies flushing - Hematologic/Lymphatic Denies enlarged lymph nodes - Allergic/Immunologic Denies lip swelling Meds Home Medications Medication Instructions Recorded Confirmed Type Clopidogrel Bisulfate [Clopidogrel 75 mg PO DAILY 04/27/18 01/24/20 History 75mg Tab] Finasteride [Proscar 5mg Tablet] 5 mg PO DAILY 04/27/18 01/24/20 History Potassium Chloride [Klor-con 20 10 meq PO DAILY 04/27/18 01/24/20 History mEq tablet] Tamsulosin HCl [Flomax 0.4mg 0.4 mg PO HS 04/27/18 01/24/20 History capsule] Losartan Potassium [Cozaar 50mg 50 mg PO DAILY 01/29/19 01/24/20 History Tablets] gabapentin 100 mg capsule 200 mg PO TID 30 Days #180 cap 08/03/19 01/24/20 Rx lactulose 10 gram/15 mL oral 30 ml PO DAILYP PRN ml 08/07/19 01/24/20 History solution acetaminophen 500 mg capsule 500 mg PO Q4HP PRN cap 01/20/20 01/24/20 History sennosides 8.6 mg capsule 17.2 mg PO HS cap 01/20/20 01/24/20 History ondansetron HCL [Ondansetron HCl] 4 mg PO Q8HP PRN 01/23/20 01/24/20 History oxycodone-acetaminophen 10 mg-325 1 tab PO BID #75 tab 01/23/20 01/24/20 Rx mg tablet Furosemide [Furosemide 20mg Tab] 20 mg PO DAILY 01/24/20 01/24/20 History Metoprolol Succinate [Metoprolol 25 mg PO DAILY 01/24/20 01/24/20 History Succinate 25mg Tablet*] Sertraline HCl [Zoloft 100mg 100 mg PO DAILY 01/24/20 01/24/20 History tablet] Allergies Allergy/AdvReac Type Severity Reaction Status Date / Time cephalexin [From Keflex] Allergy Unknown Verified 01/24/20 07:54 allergy reaction Exam Vital signs and Labs for Last 24 Hours: Temp Pulse Resp BP Pulse Ox 98.7 F 105 H 16 109/44 L 100 01/24/20 08:04 01/24/20 08:04 01/24/20 08:04 01/24/20 08:04 01/24/20 08:04 Laboratory Results - last 24 hr 01/23/20 18:20: WBC 21.4 H*, RBC 2.79 L, Hgb 9.4 L, Hct 29.0 L, MCV 104.0 H, MCH 33.6 H, MCHC 32.3, RDW 13.5, Plt Count 420, MPV 7.9, Neut % (Auto) 58.0, Lymph % (Auto) 34.2, [place] % (Auto) 5.3, Eos % (Auto) 2.2, Baso % (Auto) 0.4, Neut # (Auto) 12.4 H, Lymph # (Auto) 7.3 H, [place] # (Auto) 1.1 H, Eos # (Auto) 0.5 H, Baso # (Auto) 0.1, Total Counted 100, Neutrophils % (Manu
[2020-01-24 09:01] LABS: Chloride 118 mmol/L (98-107); Potassium 5.7 mmoL/L (3.5-5.1); Sodium 140 mmol/L (136-145)
[2020-01-24 09:04] LABS: Alanine Aminotransferase 14 U/L (12-78); Albumin Level 2.5 g/dl (3.5-5.0); Albumin/Globulin Ratio 0.9 (1.1-1.8); Alkaline Phosphatase 41 U/L (38-126); Anion Gap 10.7 mEq/L (5-15); Aspartate Amino Transferase 26 U/L (17-59); Bilirubin,Total 0.4 mg/dl (0.2-1.3); Blood Urea Nitrogen 58 mg/dl (9-20); Carbon Dioxide 17 mmol/L (22.0-30.0); Creatinine Clearance Estimated 50 mL/min (50-200); Estimated Glomerular Filt Rate 64 ml/min (>60); GFR (African American) 77 ML/MIN (>60); Globulin 2.7 g/dL (1.3-3.2); Glucose 120 mg/dl (74-100); Total Protein,Serum 5.2 g/dl (6.3-8.2)
[2020-01-24 09:14] LABS: Calcium 8.4 mg/dl (8.4-10.2)
--- NOTE | 2020-01-24 09:50 | SW/DCPLANNER ---
Addendum entered by Caitlyn Mclean 01/27/20 11:31: I have updated Judith with [facility]. Original Note: This patient currently resides at [facility]. I have spoke with Judith from [place] and she has stated that patient is currently [facility] level of care. I will continue to follow up with Judith until patient is ready for discharge.
--- NOTE | 2020-01-24 10:58 | CA_ITS ---
APPROVED REPORT EXAM: Comprehensive 2D, Doppler, and color-flow Echocardiogram Platen Drier Operator: Tenisha Campbell RT(R) Ht: 5 ft 9 in Wt: 158lbs BSA: 1.87 BP: 109/44 mmHg Indications: COPD, HTN, hyperlipidemia, GI bleed, CAD, stent, very limited study as patient was uncooperative and had very limited windows. LV Diastology E/A Ratio 0.52 Mitral Valve MV A Velocity 99.00 (40-130 cm/s) Left Ventricle Technically difficult and limited study because of the patient factors and poor acoustic windows. Left atrium is mildly enlarged, left ventricle is normal size, mild concentric left ventricular hypertrophy, hyperdynamic left ventricular systolic function, visually estimated ejection fraction over 65% with no regional wall motion abnormality. Right Ventricle Right atrium and right ventricle are normal size and contractility. Aortic Valve Aortic valve is thickened and calcified, leaflet continue to display mobility, there is no aortic stenosis or aortic insufficiency. Mitral Valve Mitral valve leaflets are minimally thickened, there is no mitral stenosis, there is mild mitral regurgitation. Tricuspid Valve Tricuspid valve grossly normal, there is mild tricuspid regurgitation, tricuspid regurgitation jet velocity is inadequate for calculation of the right ventricular systolic pressure. Pulmonic Valve Pulmonic valve is poorly visualized. Great Vessels Aortic root is normal size. Pericardium No significant pericardial effusion noted. Conclusion 1. Technically difficult study. 2. Mildly enlarged left atrium, normal left ventricular size, mild concentric left ventricular hypertrophy, hyperdynamic left ventricular systolic function, visually estimated ejection fraction over 65% with no regional wall motion abnormality, grade 1 diastolic dysfunction seen without tissue Doppler evidence of raise left atrial pressure. 3. Mild mitral and tricuspid regurgitation. 4. No significant pericardial effusion noted. Electronically signed by : Anselmo Dean, 01/24/2020 13:16:18
--- NOTE | 2020-01-24 11:21 | HMH.CNCARD ---
History of Present Illness Consult date: 01/24/20 Requesting physician: Tomas Chi Consult reason: pre-op evaluation Chief complaint: Hematemesis, Hematochezia, anemia, sepsis, pre-op evaluation Additional Medical History:: 1. History of coronary disease and coronary stenting 2. Dementia 3. Remote history of GI bleed 4. History of chronic kidney disease 5. COPD History of present illness: 84-year-old white male admitted through the emergency department from longterm due to vomiting up blood after eating. Patient also noted to have blood mixed in with stool in his adult diaper. Patient was found to have marked anemia along with UTI sepsis requiring Levophed for blood pressure support. At this time patient has been transfused from a hemoglobin of 6 up to greater than 9 and is off of the Levophed drip. He is pleasantly demented (asking for his fishing license so he can go fishing) and denies any chest pain. He does relate some mild abdominal discomfort. Patient is unable to give adequate history or details. [facility] History Medical History: Reports:: Chronic Obstructive Pulmonary Disease (COPD), Coronary Artery Disease, Hyperlipidemia, Hypertension Denies:: Cancer, Diabetes Mellitus Type 1, Diabetes Mellitus Type 2, MRSA *Have you ever received a pneumonia vaccine?: Yes *Have you received a flu vaccine this season?: Yes Other Medical History: Reports: Anemia, Arthritis Laterality Cases: Right: Other Other Surgeries: Yes: Cardiac Catheterization, Coronary Stent Amputation: No - *Social History Smoking Status: Former smoker Tobacco Type: cigarettes # Packs/Day (cigarettes): 1 #Yrs smoked (if former smoker): 57 Alcohol Intake: never Substance Use Type: denies use *Occupational Status:: retired Housing: house Household Members: family *Travel in the last 8 weeks: None Family Hx:: Unable to obtain Med Home Medications Medication Instructions Recorded Confirmed Type Clopidogrel Bisulfate [Clopidogrel 75 mg PO DAILY 04/27/18 01/24/20 History 75mg Tab] Finasteride [Proscar 5mg Tablet] 5 mg PO DAILY 04/27/18 01/24/20 History Potassium Chloride [Klor-con 20 10 meq PO DAILY 04/27/18 01/24/20 History mEq tablet] Tamsulosin HCl [Flomax 0.4mg 0.4 mg PO HS 04/27/18 01/24/20 History capsule] Losartan Potassium [Cozaar 50mg 50 mg PO DAILY 01/29/19 01/24/20 History Tablets] gabapentin 100 mg capsule 200 mg PO TID 30 Days #180 cap 08/03/19 01/24/20 Rx lactulose 10 gram/15 mL oral 30 ml PO DAILYP PRN ml 08/07/19 01/24/20 History solution acetaminophen 500 mg capsule 500 mg PO Q4HP PRN cap 01/20/20 01/24/20 History sennosides 8.6 mg capsule 17.2 mg PO HS cap 01/20/20 01/24/20 History ondansetron HCL [Ondansetron HCl] 4 mg PO Q8HP PRN 01/23/20 01/24/20 History oxycodone-acetaminophen 10 mg-325 1 tab PO BID #75 tab 01/23/20 01/24/20 Rx mg tablet Furosemide [Furosemide 20mg Tab] 20 mg PO DAILY 01/24/20 01/24/20 History Metoprolol Succinate [Metoprolol 25 mg PO DAILY 01/24/20 01/24/20 History Succinate 25mg Tablet*] Sertraline HCl [Zoloft 100mg 100 mg PO DAILY 01/24/20 01/24/20 History tablet] Allergies Allergy/AdvReac Type Severity Reaction Status Date / Time cephalexin [From [employer] [place]] Allergy Unknown Verified 01/24/20 07:54 allergy reaction Exam Vital signs and Labs for Last 24 Hours: Temp Pulse Resp BP Pulse Ox 99.9 F H 105 H 16 109/44 L 100 01/24/20 11:14 01/24/20 08:04 01/24/20 08:04 01/24/20 08:04 01/24/20 08:04 Laboratory Results - last 24 hr 01/23/20 18:20: WBC 21.4 H*, RBC 2.79 L, Hgb 9.4 L, Hct 29.0 L, MCV 104.0 H, MCH 33.6 H, MCHC 32.3, RDW 13.5, Plt Count 420, MPV 7.9, Neut % (Auto) 58.0, Lymph % (Auto) 34.2, [place] % (Auto) 5.3, Eos % (Auto) 2.2, Baso % (Auto) 0.4, Neut # (Auto) 12.4 H, Lymph # (Auto) 7.3 H, [place] # (Auto) 1.1 H, Eos # (Auto) 0.5 H, Baso # (Auto) 0.1, Total Counted 100, Neutrophils % (Manual) 61, Lymphocytes % (Manual)
[2020-01-24 13:08] LABS: Hemoglobin 8.3 g/dL (14.1-18.0)
[2020-01-24 13:09] LABS: Hematocrit 23.6 % (42.0-52.0)
--- NOTE | 2020-01-24 14:09 | P.PCN_ITS ---
[facility] Procedure Note Procedure Note:: Upper Endoscopy Procedure Report: Esophagogastroduodenoscopy with cold biopsies and Endo Clip placement Endoscopost: Tone Verma II, MD Referring Physician: Tomas Chi MD Date of Procedure: January 24, 2020 Equipment: Olympus GIF 180 standard upper endoscope Sedation: MAC sedation Indications: Mr. Bejarano is an 84-year-old gentleman who presented with hematemesis. He also had hematochezia. He had marked anemia along with urosepsis. He required Levofed because of his hypotension. He did receive fluid resuscitation and then received blood transfusions. He does have cognitive impairment and dementia and cannot verbally communicate. He was placed on a Protonix drip. His stool was Hemoccult positive. His hemoglobin and hematocrit were initially 6.0 and 19.3. He was macrocytic with MCV of 106.2. Procedure: Prior to the procedure, a history and physical exam was performed, and patient's medications and allergies were reviewed. The risks, benefits and alternatives of the sedation and procedure were discussed with the patient. All questions were answered and informed consent was obtained. The patient was brought to the procedure room. Patient identification and proposed procedure were verified by the physician and the nurse. The patient was placed in a left lateral decubitus position and the scope was passed under direct vision. Throughout the procedure, the patient's blood pressure, pulse, and oxygen saturations were monitored continuously. The upper GI endoscopy was accomplished without difficulty. The patient tolerated the procedure well. Findings: The scope was passed directly into the upper esophagus and advanced to the third portion of the duodenum. The post bulbar duodenum and duodenal bulb were normal with normal mucosa and conniventes. The scope was withdrawn through a normal duodenal bulb and pylorus into the stomach. The antrum of the stomach was normal. Along the lesser curvature in the proximal stomach was a linear ulceration that was probably secondary to a Emy-Epps tear. There was ulceration and a visible vessel at the base of this ulceration. Biopsies were taken from the antrum to rule out H. pylori. The ulcer bed itself was examined and a single Endo Clip was placed over the ulcer bed/vessel site to prevent further bleeding. There was no active bleeding noted prior to or after the clip was placed. The scope was withdrawn and the remainder of the esophagus was normal. Impression: 1. Linear gastric ulcer along lesser curvature/proximal stomach consistent with Emy-Epps tear?visible vessel in the base of this ulcer status post Endo Clip placement 2. Small hiatal hernia (2 cm) Plan: I would continue PPI therapy and possibly add misoprostol. I am not aware that he has been on any NSAIDs. I would check biopsies to exclude H. pylori. I would begin clears later today but advance diet no sooner than tomorrow.
--- NOTE | 2020-01-24 14:22 | P.PN_ITS ---
[facility] Anesthesia Checklist - Patient Identification Patient Identification: Arm Band - Structural Data Admitted From: Inpatient Planned Operative Procedure/s: egd Consent for Planned Operative Procedure(s) Verified: Yes Verified Documents: Surgical Consent, History and Physical - NPO Status Verified Time NPO: 00:00 - Additional verifications Anesthesia Reactions: No - Airway Assessment C-Spine Mobility Assessed: Yes (mp2) TMJ Mobility Assessed: Yes Dentition: Edentulous - Neurological Assessment Level of Consciousness: Awake - Anesthesia Plan Anesthesia Risk discussed: Yes Anesthesia Plan: Verified ASA Class: III Anesthesia Type: MAC [facility] History I have reviewed the patient's past medical history: Yes Medical History: Reports:: Chronic Obstructive Pulmonary Disease (COPD), Coronary Artery Disease, Hyperlipidemia, Hypertension Denies:: Cancer, Diabetes Mellitus Type 1, Diabetes Mellitus Type 2, MRSA *Have you ever received a pneumonia vaccine?: Yes *Have you received a flu vaccine this season?: Yes Other Medical History: Reports: Anemia, Arthritis Anesthesia experience/problems:: nac Laterality Cases: Right: Other Other Surgeries: Yes: Cardiac Catheterization, Coronary Stent Amputation: No - *Social History Smoking Status: Former smoker Tobacco Type: cigarettes # Packs/Day (cigarettes): 1 #Yrs smoked (if former smoker): 57 Alcohol Intake: never Substance Use Type: denies use *Occupational Status:: retired Housing: house Household Members: family *Travel in the last 8 weeks: None Family Hx:: Unable to obtain
--- NOTE | 2020-01-24 15:57 | PC.NURSE ---
Pt remains alert to self only at this time, frequently screams out for assistance rather than using call light, has been instructed process description writer allen use, unable to comprehend at this time, bed alarm activated, has attempted to get out of bed without assistance several times this shift. Pt is s/p EGD today, van anderson tear found and treated with clipping, abd is soft and nontender, hyperactive bowel sounds in all quads, pt has had one large dark red bloody bowel movement this shift, no emesis. Lungs remain CTA, on RA, HR regular, peripheral pulses intact, wind up worker equal, no edema noted, has been off levophed since 0700, blood pressure remains stable, no s/s of distress noted at this time, will continue to monitor for changes.
--- NOTE | 2020-01-24 18:54 | PC.NURSE ---
1435- report received from Guero Grier RN post EGD, she states Dr Verma okays him to have water at this time and possibly advance to clears later tonight.
[2020-01-25] VITALS (33 sets, daily range): BP systolic 102–158; BP diastolic 40–84; PULSE 63–90; RESP 16–24; TEMP 36.9–37.9; O2SAT 93–100; BMI 23.7
--- NOTE | 2020-01-25 06:19 | PC.NURSE ---
pt has had 2 maroonish colored loose stools this shift, has pulled out 2 IVs
[2020-01-25 07:28] LABS: Basophils # 0.1 K/mm3 (0-0.2); Basophils % 0.3 % (0.1-2.0); Eosinophils # 0.1 K/mm3 (0.0-0.4); Eosinophils % 0.7 % (0.1-12.0); Lymphocytes % 18.4 % (10-50); Mean Corpuscular HGB Conc 33.7 g/dL (31.8-35.4); Mean Corpuscular Hemoglobin 32.5 pg (27.0-31.2); Mean Corpuscular Volume 96.4 fl (80-94); Mean Platelet Volume 8.5 fl (7.4-10.4); Monocytes % 6.4 % (1.7-9.3); Neutrophils # 12.1 K/mm3 (1.8-7.8); Neutrophils % 74.2 % (37.0-80.0); Platelet Count 200 K/mm3 (142-424); Red Blood Count 2.39 M/mm3 (4.60-6.20); Red Cell Distribution Width 15.8 % (11.5-17.5); White Blood Count 16.3 K/mm3 (4.8-10.8)
[2020-01-25 07:32] LABS: Chloride 115 mmol/L (98-107); Hemoglobin 7.8 g/dL (14.1-18.0); Sodium 140 mmol/L (136-145)
[2020-01-25 07:33] LABS: MANUAL DIFFERENTIAL MANUAL DIFFERENTIAL (MANUAL DIFF)
[2020-01-25 07:35] LABS: Blood Urea Nitrogen 26 mg/dl (9-20); Calcium 8.5 mg/dl (8.4-10.2); Carbon Dioxide 19 mmol/L (22.0-30.0); Creatinine Clearance Estimated 55 mL/min (50-200); Estimated Glomerular Filt Rate 92 ml/min (>60); GFR (African American) 111 ML/MIN (>60); Glucose 98 mg/dl (74-100)
[2020-01-25 08:35] LABS: Acanthocytes 1+; Lymphocytes % 19 % (10-50); Monocytes % 3 % (2-9); Neutrophils % 78 % (42-76); Platelet Estimate Normal; Poikilocytosis 1+; Total Cells Counted 100
--- NOTE | 2020-01-25 09:36 | HMH.ACPN2 ---
Internal Medicine - PN: Subj *Date: 01/26/20 *Time: 09:06 Interval history: doing better - need transfusion today Exam Vital signs and Labs for Last 24 Hours: Temp Pulse Resp BP Pulse Ox 98.7 F 85 18 121/44 L 99 01/25/20 08:00 01/25/20 06:00 01/25/20 06:00 01/25/20 06:00 01/25/20 06:00 Laboratory Results - last 24 hr 01/23/20 18:44: Crossmatch (AHG) See Detail 01/23/20 20:25: Urine Color Yellow, Urine Appearance Cloudy, Urine pH 8.5, Ur Specific [place] 1.015, Urine Protein Negative, Urine Glucose (UA) Negative, Urine Ketones Negative, Urine Blood Trace-i, Urine Nitrate Positive, Urine Bilirubin Negative, Urine Urobilinogen 0.2, Ur Leukocyte Esterase 3+ A, Urine WBC Tntc, Urine Bacteria 2+ 01/24/20 08:35: Anion Gap 10.7, Estimated Creat Clear 50, Estimated GFR 64, Est GFR ( Amer) 77 D, Globulin 2.7, Albumin/Globulin Ratio 0.9 L 01/24/20 12:55: Hgb 8.3 L, Hct 23.6 L* 01/25/20 06:25: WBC 16.3 H D, RBC 2.39 L D, Hgb 7.8 L*, Hct 23.0 L*, MCV 96.4 H, MCH 32.5 H, MCHC 33.7, RDW 15.8, Plt Count 200 D, MPV 8.5, Neut % (Auto) 74.2, Lymph % (Auto) 18.4, [place] % (Auto) 6.4, Eos % (Auto) 0.7, Baso % (Auto) 0.3, Neut # (Auto) 12.1 H, Lymph # (Auto) 3.0, [place] # (Auto) 1.0, Eos # (Auto) 0.1, Baso # (Auto) 0.1, Total Counted 100, Neutrophils % (Manual) 78 H, Lymphocytes % (Manual) 19, Monocytes % (Manual) 3, Platelet Estimate Normal, Poikilocytosis 1+, Acanthocytes (Spur) 1+ 01/25/20 06:25: Sodium 140, Potassium 4.0 D, Chloride 115 H, Carbon Dioxide 19 L, Anion Gap 10.0, BUN 26 H D, Creatinine 0.80 D, Estimated Creat Clear 55, Estimated GFR 92, Est GFR ( Amer) 111 D, Glucose 98, Calcium 8.5 I & O for Last 24 hours: Intake & Output 01/22/20 01/23/20 01/24/20 01/25/20 11:59 11:59 11:59 11:59 Intake Total 2975 / 2975 2998 / 2998 Output Total 300 / 300 1900 / 1900 Balance 2675 / 2675 1098 / 1098 Weight 158 lb 9.009 oz 160 lb 1 oz Microbiology Reports for the Last 24 Hours: Microbiology 01/23/20 20:25 Urine,Clean Catch Urine Culture - Preliminary Gram Negative Rods - Constitutional no acute distress, chronically ill appearing - *Routine HEENT Exam Head: Present: normocephalic Eye: Present: EOMI, PERRL ENT: Present: mucous membranes dry - *Routine Neck Exam Present: supple - *Routine Respiratory Exam Present: decreased breath sounds - *Routine Cardiovascular Exam Present: RRR - *Routine Abdominal Exam Present: soft - *Routine Extremities Exam Absent: calf tenderness - *Routine Skin Exam Present: intact - *Routine Neurological Exam Present: alert, CN II-XII intact - Routine Psychiatric Exam Present: normal affect Assessment and Plan (1) Acute hyperkalemia Current visit: Yes Status: Acute Category: Medical Code(s): E87.5 - Hyperkalemia (2) Acute on chronic anemia Current visit: Yes Status: Acute Category: Medical Code(s): D64.9 - Anemia, unspecified (3) Chronic kidney disease Current visit: Yes Status: Acute Category: Medical Code(s): N18.9 - Chronic kidney disease, unspecified (4) Leukocytosis, unspecified Current visit: Yes Status: Acute Category: Medical Code(s): D72.829 - Elevated white blood cell count, unspecified (5) Upper GI bleed Current visit: Yes Status: Acute Category: Medical Code(s): K92.2 - Gastrointestinal hemorrhage, unspecified (6) Altered mental status Current visit: No Status: Acute Qualifiers: Altered mental status type: unspecified Qualified Code(s): R41.82 - Altered mental status, unspecified Category: Medical Code(s): R41.82 - Altered mental status, unspecified (7) Acute blood loss anemia Current visit: Yes Status: Acute Category: Medical Code(s): D62 - Acute posthemorrhagic anemia (8) Emy-Epps tear Current visit: Yes Status: Acute Category: Medical Code(s): K22.6 - Gastro-esophageal laceration-hemorrhage syndrome
--- NOTE | 2020-01-25 16:37 | PC.NURSE ---
No acute changes this shift. Pt remains at baseline orientation. Currently receiving second unit of PRBC's at this time. Has tolerated well w/ no noted adverse effect. Protonix gtt continues. Pt has been incontinent of one large maroon loose stool thus far this shift. Pt is able to help w/ repositioning in bed. Oral care performed. Denies pain. Remains on room air. VSS. Will continue to monitor.
[2020-01-25 20:19] LABS: Hematocrit 28.4 % (42.0-52.0)
[2020-01-25 20:38] LABS: Hemoglobin 10.1 g/dL (14.1-18.0)
[2020-01-26] VITALS: BP 137/68; PULSE 70; PULSE 80; RESP 18; TEMP 37.1; O2SAT 97
[2020-01-26 04:00] VITALS: BP 113/51; PULSE 63; PULSE 70; RESP 14; TEMP 37.6; O2SAT 98
--- NOTE | 2020-01-26 04:35 | PC.NURSE ---
No acute changes. Pt did have 2 bm's this shift that were black/green in color. Protonix gtt continues infusing at 10ml/hr. Oral care x2 this shift. Pt is able to reposition in bed w/o assistance. TEDS in place. Will continue to monitor.
[2020-01-26 05:00] VITALS: BMI 24.1
[2020-01-26 07:50] VITALS: BP 149/59; PULSE 78; RESP 22; TEMP 36.9; O2SAT 98
[2020-01-26 08:00] VITALS: PULSE 60
[2020-01-26 08:03] LABS: Basophils # 0.1 K/mm3 (0-0.2); Basophils % 0.4 % (0.1-2.0); Eosinophils # 0.3 K/mm3 (0.0-0.4); Hematocrit 27.8 % (42.0-52.0); Hemoglobin 9.5 g/dL (14.1-18.0); Lymphocytes # 2.9 K/mm3 (0.7-4.5); Lymphocytes % 19.8 % (10-50); Mean Corpuscular HGB Conc 34.3 g/dL (31.8-35.4); Mean Corpuscular Hemoglobin 32.5 pg (27.0-31.2); Mean Corpuscular Volume 94.9 fl (80-94); Mean Platelet Volume 8.3 fl (7.4-10.4); Monocytes # 0.8 K/mm3 (0.1-1.0); Monocytes % 5.5 % (1.7-9.3); Neutrophils # 10.5 K/mm3 (1.8-7.8); Neutrophils % 72.3 % (37.0-80.0); Platelet Count 163 K/mm3 (142-424); Red Blood Count 2.93 M/mm3 (4.60-6.20); Red Cell Distribution Width 16.1 % (11.5-17.5); White Blood Count 14.6 K/mm3 (4.8-10.8)
[2020-01-26 08:10] LABS: Chloride 113 mmol/L (98-107); Sodium 136 mmol/L (136-145)
[2020-01-26 08:11] LABS: Potassium 3.4 mmoL/L (3.5-5.1)
[2020-01-26 08:13] LABS: Blood Urea Nitrogen 14 mg/dl (9-20); Creatinine Clearance Estimated 57 mL/min (50-200); Estimated Glomerular Filt Rate 92 ml/min (>60); GFR (African American) 111 ML/MIN (>60)
[2020-01-26 08:14] LABS: Anion Gap 6.4 mEq/L (5-15); Calcium 8.2 mg/dl (8.4-10.2); Carbon Dioxide 20 mmol/L (22.0-30.0); Glucose 88 mg/dl (74-100)
[2020-01-26 09:43] LABS: Covid-19 Nasal PCR Sendout UK Not Detected
--- NOTE | 2020-01-26 10:14 | HMH.ACPN2 ---
Internal Medicine - PN: Subj *Date: 01/27/20 *Time: 14:02 Interval history: doing better - oob - sandra diet Exam Vital signs and Labs for Last 24 Hours: Temp Pulse Resp BP Pulse Ox 98.4 F 78 22 149/59 H 98 01/26/20 07:50 01/26/20 07:50 01/26/20 07:50 01/26/20 07:50 01/26/20 07:50 Laboratory Results - last 24 hr 01/23/20 18:44: Blood Type A Positive, Antibody Screen Negative, Crossmatch (AHG) See Detail 01/25/20 12:55: SARS-CoV-2 (PCR) Not detected 01/25/20 20:08: Hgb 10.1 L D, Hct 28.4 L 01/26/20 06:37: WBC 14.6 H, RBC 2.93 L, Hgb 9.5 L, Hct 27.8 L, MCV 94.9 H, MCH 32.5 H, MCHC 34.3, RDW 16.1, Plt Count 163, MPV 8.3, Neut % (Auto) 72.3, Lymph % (Auto) 19.8, [place] % (Auto) 5.5, Eos % (Auto) 2.0, Baso % (Auto) 0.4, Neut # (Auto) 10.5 H, Lymph # (Auto) 2.9, [place] # (Auto) 0.8, Eos # (Auto) 0.3, Baso # (Auto) 0.1 01/26/20 06:37: Sodium 136, Potassium 3.4 L, Chloride 113 H, Carbon Dioxide 20 L, Anion Gap 6.4, BUN 14 D, Creatinine 0.80, Estimated Creat Clear 57, Estimated GFR 92, Est GFR ( Amer) 111, Glucose 88, Calcium 8.2 L I & O for Last 24 hours: Intake & Output 01/23/20 01/24/20 01/25/20 01/26/20 11:59 11:59 11:59 11:59 Intake Total 2975 / 2975 2998 / 2998 3742 / 3742 Output Total 300 / 300 2050 / 2200 750 / 750 Balance 2675 / 2675 948 / 798 2992 / 2992 Weight 158 lb 9.009 oz 160 lb 1 oz 163 lb 2 oz Microbiology Reports for the Last 24 Hours: Microbiology 01/23/20 20:25 Urine,Clean Catch Urine Culture - Final Providencia stuartii 01/23/20 18:44 Blood Blood Culture - Preliminary NO GROWTH AFTER 48 HOURS 01/23/20 18:44 Blood Blood Culture - Preliminary NO GROWTH AFTER 48 HOURS - Constitutional no acute distress - *Routine HEENT Exam Head: Present: normocephalic Eye: Present: EOMI, PERRL ENT: Present: mucous membranes dry - *Routine Neck Exam Present: supple - *Routine Respiratory Exam Present: CTA bilaterally - *Routine Cardiovascular Exam Present: RRR, murmur - *Routine Abdominal Exam Present: soft - *Routine Extremities Exam Present: cyanosis - *Routine Skin Exam Present: intact - *Routine Neurological Exam Present: alert - Routine Psychiatric Exam Present: normal affect, cooperative Assessment and Plan (1) Acute hyperkalemia Current visit: Yes Status: Acute Category: Medical Code(s): E87.5 - Hyperkalemia (2) Acute on chronic anemia Current visit: Yes Status: Acute Category: Medical Code(s): D64.9 - Anemia, unspecified (3) Chronic kidney disease Current visit: Yes Status: Acute Category: Medical Code(s): N18.9 - Chronic kidney disease, unspecified (4) Leukocytosis, unspecified Current visit: Yes Status: Acute Category: Medical Code(s): D72.829 - Elevated white blood cell count, unspecified (5) Upper GI bleed Current visit: Yes Status: Acute Category: Medical Code(s): K92.2 - Gastrointestinal hemorrhage, unspecified (6) Altered mental status Current visit: No Status: Acute Qualifiers: Altered mental status type: unspecified Qualified Code(s): R41.82 - Altered mental status, unspecified Category: Medical Code(s): R41.82 - Altered mental status, unspecified (7) Acute blood loss anemia Current visit: Yes Status: Acute Category: Medical Code(s): D62 - Acute posthemorrhagic anemia (8) Emy-Epps tear Current visit: Yes Status: Acute Category: Medical Code(s): K22.6 - Gastro-esophageal laceration-hemorrhage syndrome (9) Urinary tract infection Current visit: No Status: Acute Qualifiers: Urinary tract infection type: site unspecified Hematuria presence: without hematuria Qualified Code(s): N39.0 - Urinary tract infection, site not specified Category: Medical Code(s): N39.0 - Urinary tract infection, site not specified
--- NOTE | 2020-01-26 15:59 | PC.NURSE ---
PT HAS BEEN SITTING UP IN CHAIR MOST OF THE SHIFT. NO COMPLAINTS OF DISCOMFORT. ALERT AND ORIENTED X3. PT WAS A 2 MAX ASSIST TO GET UP TO THE CHAIR. BATH AND LINEN CHANGE THIS SHIFT. VSS. AUDIBLE WHEEZES NOTED. ABDOMEN SOFT/NON TENDER WITH ACTIVE BOWEL SOUNDS. PT HAS USED THE URINAL TO VOID BUT HAS ALSO BEEN INCONTINENT ON OCCASION. VSS. SKIN C/D/I. WILL CONTINUE TO MONITOR.
[2020-01-26 16:00] VITALS: BP 152/72; PULSE 65; RESP 18; TEMP 37.1; O2SAT 98
[2020-01-26 20:00] VITALS: BP 150/70; PULSE 64; RESP 18; TEMP 37.1; O2SAT 98
[2020-01-27] VITALS (9 sets, daily range): BP systolic 118–148; BP diastolic 54–71; PULSE 47–72; RESP 17–18; TEMP 36.5–38.1; O2SAT 96–98; BMI 24.1
--- NOTE | 2020-01-27 02:46 | PC.NURSE ---
Pt has slept well this shift. Linen and brief change performed when pt spilled urinal in bed. Lung sounds remain clear at this time. No other changes noted in body systems. No s/sx of distress/pain noted at this time.
[2020-01-27 06:38] LABS: Basophils % 0.2 % (0.1-2.0); Eosinophils # 0.5 K/mm3 (0.0-0.4); Eosinophils % 3.3 % (0.1-12.0); Hematocrit 27.7 % (42.0-52.0); Hemoglobin 9.4 g/dL (14.1-18.0); Lymphocytes # 2.8 K/mm3 (0.7-4.5); Lymphocytes % 18.6 % (10-50); Mean Corpuscular HGB Conc 33.8 g/dL (31.8-35.4); Mean Corpuscular Hemoglobin 32.2 pg (27.0-31.2); Mean Corpuscular Volume 95.1 fl (80-94); Mean Platelet Volume 8.6 fl (7.4-10.4); Monocytes # 0.8 K/mm3 (0.1-1.0); Monocytes % 5.5 % (1.7-9.3); Neutrophils # 10.7 K/mm3 (1.8-7.8); Neutrophils % 72.4 % (37.0-80.0); Platelet Count 189 K/mm3 (142-424); Red Blood Count 2.92 M/mm3 (4.60-6.20); White Blood Count 14.8 K/mm3 (4.8-10.8)
[2020-01-27 06:52] LABS: Chloride 112 mmol/L (98-107)
[2020-01-27 06:53] LABS: Potassium 3.2 mmoL/L (3.5-5.1); Sodium 135 mmol/L (136-145)
[2020-01-27 06:56] LABS: Anion Gap 7.2 mEq/L (5-15); Blood Urea Nitrogen 9 mg/dl (9-20); Carbon Dioxide 19 mmol/L (22.0-30.0); Creatinine Clearance Estimated 57 mL/min (50-200); Estimated Glomerular Filt Rate 92 ml/min (>60); GFR (African American) 111 ML/MIN (>60); Glucose 86 mg/dl (74-100)
--- NOTE | 2020-01-27 09:42 | P.PN_ITS ---
Internal Medicine - PN: Subj *Date: 01/27/20 *Time: 09:42 Exam Vital signs and Labs for Last 24 Hours: Temp Pulse Resp BP Pulse Ox 97.7 F 69 17 148/71 H 98 01/27/20 08:00 01/27/20 08:00 01/27/20 08:00 01/27/20 08:00 01/27/20 08:00 Laboratory Results - last 24 hr 01/25/20 12:55: SARS-CoV-2 (PCR) Not detected 01/27/20 05:59: WBC 14.8 H, RBC 2.92 L, Hgb 9.4 L, Hct 27.7 L, MCV 95.1 H, MCH 32.2 H, MCHC 33.8, RDW 16.0, Plt Count 189, MPV 8.6, Neut % (Auto) 72.4, Lymph % (Auto) 18.6, [place] % (Auto) 5.5, Eos % (Auto) 3.3, Baso % (Auto) 0.2, Neut # (Auto) 10.7 H, Lymph # (Auto) 2.8, [place] # (Auto) 0.8, Eos # (Auto) 0.5 H, Baso # (Auto) 0.0 01/27/20 05:59: Sodium 135 L, Potassium 3.2 L, Chloride 112 H, Carbon Dioxide 19 L, Anion Gap 7.2, BUN 9 D, Creatinine 0.80, Estimated Creat Clear 57, Estimated GFR 92, Est GFR ( Amer) 111, Glucose 86, Calcium 8.0 L I & O for Last 24 hours: Intake & Output 01/24/20 01/25/20 01/26/20 01/27/20 23:59 23:59 23:59 23:59 Intake Total 1676 / 1676 4180 / 4180 3090 / 3090 1505 / 1505 Output Total 1200 / 1450 1650 / 1650 650 / 650 Balance 476 / 226 2530 / 2530 2440 / 2440 1505 / 1505 Weight 71.923 kg 72.603 kg 73.992 kg 73.99 kg Microbiology Reports for the Last 24 Hours: Microbiology 01/23/20 20:25 Urine,Clean Catch Urine Culture - Final Providencia stuartii Assessment and Plan (1) Acute hyperkalemia Current visit: Yes Status: Acute Category: Medical Code(s): E87.5 - Hyperkalemia (2) Acute on chronic anemia Current visit: Yes Status: Acute Category: Medical Code(s): D64.9 - Anemia, unspecified (3) Chronic kidney disease Current visit: Yes Status: Acute Category: Medical Code(s): N18.9 - Chronic kidney disease, unspecified (4) Leukocytosis, unspecified Current visit: Yes Status: Acute Category: Medical Code(s): D72.829 - Elevated white blood cell count, unspecified (5) Upper GI bleed Current visit: Yes Status: Acute Category: Medical Code(s): K92.2 - Gastrointestinal hemorrhage, unspecified (6) Altered mental status Current visit: No Status: Acute Qualifiers: Altered mental status type: unspecified Qualified Code(s): R41.82 - Altered mental status, unspecified Category: Medical Code(s): R41.82 - Altered mental status, unspecified (7) Acute blood loss anemia Current visit: Yes Status: Acute Category: Medical Code(s): D62 - Acute posthemorrhagic anemia (8) Emy-Epps tear Current visit: Yes Status: Acute Category: Medical Code(s): K22.6 - Gastro-esophageal laceration-hemorrhage syndrome (9) Urinary tract infection Current visit: No Status: Acute Qualifiers: Urinary tract infection type: site unspecified Hematuria presence: without hematuria Qualified Code(s): N39.0 - Urinary tract infection, site not specified Category: Medical Code(s): N39.0 - Urinary tract infection, site not specified The patient's infection will respond to the chosen ABx?: Yes Is the patient receiving the right drug, dose, and route?: Yes Could a more targeted ABx be ordered?: No (URINE CULTURE SENSITIVE TO CEFTRIAXONE)
--- NOTE | 2020-01-27 10:19 | XR_ITS ---
PROCEDURE: XR CHEST PORTABLE CLINICAL HISTORY: Fever and wheezing COMPARISON: CR XR CHEST AP from 01/28/2019 CR XR CHEST PORTABLE from 06/05/2019 CR XR CHEST PORTABLE from 08/14/[address] ABDOMEN PELVIS WO CON from 01/23/2020 FINDINGS: The cardiomediastinal silhouette and pulmonary vascularity are within normal limits. There are chronic changes present with some scarring in the right mid lower lung zone. No lobar consolidation or collapse. No acute bony abnormalities. IMPRESSION: Chronic changes on the right, no change with no acute finding Dictated by: Tony Tierney MD 01/27/2020 14:57 Tony Tierney MD in [facility] 01/27/2020 14:57
--- NOTE | 2020-01-27 13:08 | HMH.ACPN2 ---
Internal Medicine - PN: Subj *Date: 01/27/20 *Time: 17:22 Interval history: Relays an uneventful night. He is tolerating clear liquids well. Hemoglobin today is 9.4. EGD is reviewed. No suggestion of further bleeding. Cultures are negative x2. Urine culture shows a providencia serratia that is sensitive to Rocephin. A chest film was obtained this morning showing no changes on the right with no acute finding. His belly is soft and nontender. Exam Vital signs and Labs for Last 24 Hours: Temp Pulse Resp BP Pulse Ox 97.7 F 64 17 148/71 H 98 01/27/20 08:00 01/27/20 10:41 01/27/20 08:00 01/27/20 08:00 01/27/20 10:45 Laboratory Results - last 24 hr 01/27/20 05:59: WBC 14.8 H, RBC 2.92 L, Hgb 9.4 L, Hct 27.7 L, MCV 95.1 H, MCH 32.2 H, MCHC 33.8, RDW 16.0, Plt Count 189, MPV 8.6, Neut % (Auto) 72.4, Lymph % (Auto) 18.6, [place] % (Auto) 5.5, Eos % (Auto) 3.3, Baso % (Auto) 0.2, Neut # (Auto) 10.7 H, Lymph # (Auto) 2.8, [place] # (Auto) 0.8, Eos # (Auto) 0.5 H, Baso # (Auto) 0.0 01/27/20 05:59: Sodium 135 L, Potassium 3.2 L, Chloride 112 H, Carbon Dioxide 19 L, Anion Gap 7.2, BUN 9 D, Creatinine 0.80, Estimated Creat Clear 57, Estimated GFR 92, Est GFR ( Amer) 111, Glucose 86, Calcium 8.0 L I & O for Last 24 hours: Intake & Output 01/24/20 01/25/20 01/26/20 01/27/20 23:59 23:59 23:59 23:59 Intake Total 1676 / 1676 4180 / 4180 3090 / 3090 1505 / 1505 Output Total 1200 / 1450 1650 / 1650 650 / 650 Balance 476 / 226 2530 / 2530 2440 / 2440 1505 / 1505 Weight 158 lb 9.009 oz 160 lb 1 oz 163 lb 2 oz 163 lb 1.92 oz - Constitutional no acute distress, chronically ill appearing - *Routine HEENT Exam Head: Present: normocephalic Eye: Absent: conjunctival icterus ENT: Present: mucous membranes moist - *Routine Neck Exam Present: supple. Absent: lymphadenopathy - *Routine Respiratory Exam Present: rhonchi, diminished air movement. Absent: accessory muscle use, prolonged expiratory phase, respiratory distress - *Routine Cardiovascular Exam Present: RRR - *Routine Abdominal Exam Present: soft, normoactive bowel sounds. Absent: tenderness - *Routine Extremities Exam Absent: cyanosis, clubbing, edema, calf tenderness - *Routine Skin Exam Present: warm. Absent: jaundice, rash - *Routine Neurological Exam Present: alert, oriented X3, vision grossly intact. Absent: facial asymmetry, tremors, asterixis - Routine Psychiatric Exam Present: normal affect Assessment and Plan (1) Acute hyperkalemia Current visit: Yes Status: Resolved Category: Medical Code(s): E87.5 - Hyperkalemia (2) Acute on chronic anemia Current visit: Yes Status: Acute Category: Medical Code(s): D64.9 - Anemia, unspecified (3) Chronic kidney disease Current visit: Yes Status: Acute Category: Medical Code(s): N18.9 - Chronic kidney disease, unspecified (4) Leukocytosis, unspecified Current visit: Yes Status: Acute Category: Medical Code(s): D72.829 - Elevated white blood cell count, unspecified (5) Upper GI bleed Current visit: Yes Status: Acute Category: Medical Code(s): K92.2 - Gastrointestinal hemorrhage, unspecified (6) Altered mental status Current visit: No Status: Acute Qualifiers: Altered mental status type: unspecified Qualified Code(s): R41.82 - Altered mental status, unspecified Category: Medical Code(s): R41.82 - Altered mental status, unspecified (7) Acute blood loss anemia Current visit: Yes Status: Acute Category: Medical Code(s): D62 - Acute posthemorrhagic anemia (8) Emy-Epps tear Current visit: Yes Status: Acute Category: Medical Code(s): K22.6 - Gastro-esophageal laceration-hemorrhage syndrome (9) Urinary tract infection Current visit: No Status: Acute Qualifiers: Urinary tract infection type: site unspecified Hematuria presence: without hematuria Qualified Code(s): N39.0 - Urinary tract infection, sit
--- NOTE | 2020-01-27 19:18 | PC.NURSE ---
report given to chay
[2020-01-28] VITALS: BP 115/50; PULSE 74; RESP 18; TEMP 38.4; O2SAT 99
[2020-01-28 04:00] VITALS: BP 148/66; PULSE 70; RESP 20; TEMP 37.3; O2SAT 94
--- NOTE | 2020-01-28 04:30 | PC.NURSE ---
A&OX4. PT TOLERATING RA WELL. PT HAS SLEPT MAJORITY OF SHIFT. PT HAS HAD NO C/O PAIN, SOA, NA/VO. PT HAS HAD X1 LOOSE STOOL, NO BLOOD NOTED. PT REMAINS INCONTINENT TO BOWEL AND BLADDER. AREA KEPT CLEAN AND DRY T/O SHIFT. PT DOES RAMBLE TO HIMSELF AT TIMES IN ROOM. BED SAFETY IN PLACE. NO C/O THUS FAR, VSS WILL CONTINUE TO MONITOR.
[2020-01-28 05:00] VITALS: BMI 24.0
--- NOTE | 2020-01-28 05:05 | PC.NURSE ---
PT DID BECOME FEBRILE TONIGHT AT 101.2. ADMINISTERED TYLENOL PER AUG. ON REASSESSMENT, PT TEMP 99.1.
[2020-01-28 06:33] VITALS: PULSE 66; PULSE 67; O2SAT 96
[2020-01-28 06:45] LABS: Basophils # 0.1 K/mm3 (0-0.2); Basophils % 0.4 % (0.1-2.0); Eosinophils # 0.6 K/mm3 (0.0-0.4); Eosinophils % 3.9 % (0.1-12.0); Hematocrit 28.7 % (42.0-52.0); Hemoglobin 9.9 g/dL (14.1-18.0); Lymphocytes # 3.1 K/mm3 (0.7-4.5); Lymphocytes % 19.2 % (10-50); Mean Corpuscular HGB Conc 34.4 g/dL (31.8-35.4); Mean Corpuscular Hemoglobin 32.3 pg (27.0-31.2); Mean Platelet Volume 8.4 fl (7.4-10.4); Monocytes # 0.9 K/mm3 (0.1-1.0); Monocytes % 5.6 % (1.7-9.3); Neutrophils # 11.2 K/mm3 (1.8-7.8); Neutrophils % 70.9 % (37.0-80.0); Platelet Count 230 K/mm3 (142-424); Red Blood Count 3.05 M/mm3 (4.60-6.20); White Blood Count 15.9 K/mm3 (4.8-10.8)
[2020-01-28 06:52] LABS: MANUAL DIFFERENTIAL MANUAL DIFFERENTIAL (MANUAL DIFF)
[2020-01-28 07:03] LABS: Chloride 110 mmol/L (98-107); Sodium 136 mmol/L (136-145)
[2020-01-28 07:04] LABS: Potassium 3.2 mmoL/L (3.5-5.1)
[2020-01-28 07:06] LABS: Blood Urea Nitrogen 6 mg/dl (9-20); Creatinine Clearance Estimated 56 mL/min (50-200); Estimated Glomerular Filt Rate 92 ml/min (>60); GFR (African American) 111 ML/MIN (>60)
[2020-01-28 07:07] LABS: Anion Gap 7.2 mEq/L (5-15); Calcium 8.3 mg/dl (8.4-10.2); Carbon Dioxide 22 mmol/L (22.0-30.0); Glucose 92 mg/dl (74-100)
[2020-01-28 08:00] VITALS: BP 144/73; PULSE 91; RESP 18; TEMP 37.4; O2SAT 95
[2020-01-28 08:05] LABS: Eosinophils % 2 % (0-3); Lymphocytes % 19 % (10-50); Monocytes % 5 % (2-9); Neutrophils % 74 % (42-76); Nucleated Red Blood Cells 2; Total Cells Counted 100
[2020-01-28 08:06] LABS: Platelet Estimate Normal; RBC Morphology Normal
--- NOTE | 2020-01-28 09:00 | HMH.DCSUM ---
General - General Admission date:: 01/23/20 Discharge date: 01/28/20 HPI HPI: 84-year-old male presented to the emergency department with vomiting blood. Patient does have evidence of dried blood around the oropharynx. He is on antiplatelet agent. Patient was given fluid bolus prior to arrival. This time patient was started on Protonix. Hospital Course Hospital Course: 84-year-old male presented to the emergency department with vomiting blood. Patient does have evidence of dried blood around the oropharynx. He is on antiplatelet agent. Patient was given fluid bolus prior to arrival. This time patient was started on Protonix. After admission he had no more episodes of hematemesis, he did receive 4 units of packed red blood cells currently H/H is 9.9/28.7. He did have an EGD performed by Dr. Verma. Discussed discharge to [place] today patient is agreeable to this states that he is feeling a lot better Urine culture tested positive for Providencia stuartii, he has received Rocephin for this, blood cultures have been negative, COVID-19 was negative on admission and will be retested before discharge Abdomen/pelvis CT 01/24/2020: COMPARISON: CT CT ABDOMEN PELVIS W CON from 06/05/2019 TECHNIQUE: Axial images obtained with sagittal and coronal reformats. All CT scans at the facility use one or more dose reduction, viz: automated exposure control, ma/kV adjustment per patient size (including targeted exams where dose is matched to indication, i.e. head), or iterative reconstruction technique. FINDINGS: LOWER THORAX: Chronic changes with atelectasis or infiltrate in right lung base posteriorly. ABDOMEN & PELVIS: The liver and spleen have an unremarkable appearance. There are scattered small foci of increased density within the gallbladder posteriorly consistent with cholelithiasis. Diffuse motion artifact obscures fine detail. Scattered nondilated fluid-filled loops of small and large bowel are present and could be due to enterocolitis. There is a medium-sized hiatal hernia. The adrenal glands, kidneys, and pancreas have an unremarkable appearance. There is mild thickening of the urinary bladder wall which could be due to nondistention or mild cystitis. Artifact present gamma nail and intramedullary harrison in the right hip. 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 Chronic wedge compression fracture involves L3 IMPRESSION: 1. Cholelithiasis 2. Hiatal hernia. 3. Possible enterocolitis Dictated by: Niall, Echo 01/24/2020: Conclusion 1. Technically difficult study. 2. Mildly enlarged left atrium, normal left ventricular size, mild concentric left ventricular hypertrophy, hyperdynamic left ventricular systolic function, visually estimated ejection fraction over 65% with no regional wall motion abnormality, grade 1 diastolic dysfunction seen without tissue Doppler evidence of raise left atrial pressure. 3. Mild mitral and tricuspid regurgitation. 4. No significant pericardial effusion noted. Electronically signed by : Anselmo Dean, Chest x-ray 01/27/2020: IMPRESSION: Chronic changes on the right, no change with no acute finding Dictated by: Niall EGD was performed by Dr. Verma on 01/27/2020 and results and recommendation: Impression: 1. Linear gastric ulcer along lesser curvature/proximal stomach consistent with Emy-Epps tear?visible vessel in the base of this ulcer status post Endo Clip placement 2. Small hiatal hernia (2 cm) Plan: I would continue PPI therapy and possibly add misoprostol. I am not aware that he has been on any NSAIDs. I would check biopsies to exclude H. pylori. I would begin clears later today but advance diet no sooner than tomorrow. Cardiology has seen and recommended: 1. History of coronary artery disease and prior coronary stenting for which the patient is on clopidogrel long-term. Now with GI bleed and marked anemia
[2020-01-28 09:08] VITALS: TEMP 37.3
--- NOTE | 2020-01-28 10:30 | SW/DCPLANNER ---
SPOKE WITH LES AT [facility] TO INFORM HER THIS PATIENT WOULD BE RETURNING BACK TODAY... WE ARE WAITING ON HIS COVID19 TO CONFIRM HE DOES NOT HAVE COVID AND HE CAN DISCHARGE BACK AT AN ICF LEVEL OF CARE...
[2020-01-28 10:43] VITALS: PULSE 85; PULSE 93; O2SAT 95
--- NOTE | 2020-01-28 14:03 | PC.NURSE ---
DURING THIS RN MORNING ASSESSMENT, THIS RN NOTICED PATIENT'S HEEL WHERE RED IN COLOR, NO SKIN BREAKDOWN NOTED. THIS RN ENCOURAGED PATIENT TO STRAIGHTEN OUT LEGS AND ALLOW HIS HEELS TO FLOAT OFF A PILLOW. PATIENT STATED, I CAN NOT STRAIGHTEN MY LEGS THIS RN PLACED A PILLOW UNDER PATIENT'S CALVES TO ALLOW HEELS TO FLOAT. DURING NEXT ADL CHECK PATIENT HAD HIS LEGS UP AND HEELS PRESSED INTO THE MATTRESS. THIS RN EDUCATED THE PATIENT IN REGARDS TO PRESSURE WOUNDS. PATIENT VERBALIZED AN UNDERSTANDING. THIS RN PROVIDED REPORT TO TAD AT [facility]. THIS RN INFORMED TAD OF FINDINGS ON HEELS AND THAT PATIENT IS CONSTANTLY PUTTING PRESSURE ON HIS HEELS. TAD STATED, YES HE ALWAYS DOES THAT. NO OTHER CONCERNS AT THIS TIME.
== END 2020-01-28 12:30 | disposition home or self-care (01) | DRG 369 ==
LOC: ER 19:56 → 2ND 21:50
PROVIDERS: Family Medicine; Internal Medicine Gastroenterology; Nurse Practitioner Family; Admitting Provider Emergency Medicine; Emergency Provider Emergency Medicine; Visit Provider Emergency Medicine
PROC: 0DJ08ZZ Inspection of Upper Intestinal Tract, Via Natural or Artificial Opening Endoscopic (ICD-10-PCS; CPT 43235; principal; 2020-01-24 13:00)
DX: K22.6 Gastro-esophageal laceration-hemorrhage syndrome (principal); D62 Acute posthemorrhagic anemia; N39.0 Urinary tract infection, site not specified; K44.9 Diaphragmatic hernia without obstruction or gangrene; K25.4 Chronic or unspecified gastric ulcer with hemorrhage; I12.9 Hypertensive chronic kidney disease with stage 1 through stage 4 chronic kidney disease, or unspecified chronic kidney disease; N18.9 Chronic kidney disease, unspecified; E87.5 Hyperkalemia; J44.9 Chronic obstructive pulmonary disease, unspecified; I25.10 Atherosclerotic heart disease of native coronary artery without angina pectoris; Z95.5 Presence of coronary angioplasty implant and graft
CPT/HCPCS: 43255; 43239; 36415; 71045; 73030; 74176; 80048; 80053; 81001; 82150; 82272; 83605; 83690; 85007; 85014; 85018; 85025; 86328; 86850; 87040; 87086; 87088; 87186; 88305; 93005; 93306; 94640; 96365; 96366; 96367; 96375; 99285; G0328; J2405; P9016; U0003

== ENCOUNTER → 2020-04-14 17:28 | Outpatient (CLI) | payer MEDICARE, MEDICAID, SELFPAY ==
[2020-04-14 17:33] LABS: Adenovirus,PCR Not Detected (NotDetected); Bordetella Pertussis Not Detected (NotDetected); Chlamydophila Pneumoniae, PCR Not Detected (NotDetected); Coronavirus 229E Not Detected (NotDetected); Coronavirus NL63 Not Detected (NotDetected); Coronavirus OC43 Not Detected (NotDetected); Coronovirus HKU1,PCR Not Detected (NotDetected); Human Metapneumovirus Not Detected (NotDetected); Influenza A, PCR Not Detected (NotDetected); Influenza AH1, 2009 Not Detected (NotDetected); Influenza AH1, PCR Not Detected (NotDetected); Influenza AH3,PCR Not Detected (NotDetected); Influenza B, PCR Not Detected (NotDetected); Mycoplasma Pneumoniae, PCR Not Detected (NotDetected); Parainfluenza 1, PCR Not Detected (NotDetected); Parainfluenza 2, PCR Not Detected (NotDetected); Parainfluenza 3, PCR Not Detected (NotDetected); Parainfluenza 4, PCR Not Detected (NotDetected); Respiratory Syncytial Virus Not Detected (NotDetected); Rhinovirus/Enterovirus Not Detected (NotDetected)
[2020-04-14 21:48] LABS: Coronavirus 19, PCR Detected (NotDetected)
== END ==
PROVIDERS: PCP Emergency Medicine; Visit Provider Emergency Medicine
DX: Z20.828 Contact with and (suspected) exposure to other viral communicable diseases (principal); U07.1 COVID-19
CPT/HCPCS: 87581; 87633; 87798

== ENCOUNTER → 2020-08-05 02:57 | Outpatient (CLI) | payer MEDICARE, MEDICAID, SELFPAY ==
[2020-08-05 03:14] LABS: Basophils # 0.1 K/mm3 (0-0.2); Basophils % 0.9 % (0.1-2.0); Eosinophils # 1.2 K/mm3 (0.0-0.4); Eosinophils % 9.9 % (0.1-12.0); Hemoglobin 10.1 g/dL (14.1-18.0); Lymphocytes # 3.3 K/mm3 (0.7-4.5); Lymphocytes % 26.6 % (10-50); Mean Corpuscular HGB Conc 31.5 g/dL (31.8-35.4); Mean Corpuscular Hemoglobin 32.7 pg (27.0-31.2); Mean Corpuscular Volume 103.9 fl (80-94); Mean Platelet Volume 7.6 fl (7.4-10.4); Monocytes # 0.8 K/mm3 (0.1-1.0); Monocytes % 6.1 % (1.7-9.3); Neutrophils % 56.6 % (37.0-80.0); Platelet Count 309 K/mm3 (142-424); Red Blood Count 3.08 M/mm3 (4.60-6.20); Red Cell Distribution Width 14.1 % (11.5-17.5); White Blood Count 12.3 K/mm3 (4.8-10.8)
[2020-08-05 03:18] LABS: Chloride 109 mmol/L (98-107); Potassium 5.4 mmoL/L (3.5-5.1); Sodium 139 mmol/L (136-145)
[2020-08-05 03:21] LABS: Blood Urea Nitrogen 31 mg/dl (9-20); Estimated Glomerular Filt Rate 57 ml/min (>60); GFR (African American) 69 ML/MIN (>60)
[2020-08-05 03:22] LABS: Anion Gap 11.4 mEq/L (5-15); Calcium 9.7 mg/dl (8.4-10.2); Carbon Dioxide 24 mmol/L (22.0-30.0); Glucose 107 mg/dl (74-100)
== END ==
PROVIDERS: Visit Provider Emergency Medicine
DX: D64.9 Anemia, unspecified (principal)
CPT/HCPCS: 80048; 85025

== ENCOUNTER → 2020-08-13 19:16 | Outpatient (CLI) | payer MEDICARE, MEDICAID, SELFPAY ==
[2020-08-13 19:48] LABS: Potassium 5.4 mmoL/L (3.5-5.1)
== END ==
PROVIDERS: Visit Provider Emergency Medicine
DX: E87.5 Hyperkalemia (principal)
CPT/HCPCS: 84132

== ENCOUNTER → 2020-11-28 05:28 | Outpatient (CLI) | payer MEDICARE, MEDICAID, SELFPAY ==
[2020-11-28 05:49] LABS: Microscopic, Urine URINE MICROSCOPIC (MICROSCOPIC)
[2020-11-28 05:56] LABS: Basophils # 0.1 K/mm3 (0-0.2); Basophils % 0.6 % (0.1-2.0); Eosinophils # 1.3 K/mm3 (0.0-0.4); Eosinophils % 8.6 % (0.1-12.0); Hematocrit 31.8 % (42.0-52.0); Hemoglobin 10.7 g/dL (14.1-18.0); Lymphocytes # 3.2 K/mm3 (0.7-4.5); Lymphocytes % 21.1 % (10-50); Mean Corpuscular HGB Conc 33.7 g/dL (31.8-35.4); Mean Corpuscular Volume 97.9 fl (80-94); Mean Platelet Volume 7.7 fl (7.4-10.4); Monocytes # 0.8 K/mm3 (0.1-1.0); Monocytes % 5.4 % (1.7-9.3); Neutrophils # 9.8 K/mm3 (1.8-7.8); Neutrophils % 64.3 % (37.0-80.0); Platelet Count 327 K/mm3 (142-424); Red Blood Count 3.25 M/mm3 (4.60-6.20); Red Cell Distribution Width 13.2 % (11.5-17.5); White Blood Count 15.2 K/mm3 (4.8-10.8)
[2020-11-28 05:57] LABS: Appearance,Urine CLOUDY (Clear); Bilirubin,Urine Negative (Negative); Blood, Urine 3+ (Negative); Color,Urine YELLOW (Yellow); Glucose,Urine (UA) Negative (Negative); Ketones,Urine Negative (Negative); Leukocyte Esterase,Urine 3+ (Negative); Nitrate,Urine Negative (Negative); PH,Urine 6.5 (5.0-8.5); Protein,Urine TRACE (Negative); Urobilinogen,Urine 0.2 EU/dl (0.2)
[2020-11-28 06:01] LABS: MANUAL DIFFERENTIAL MANUAL DIFFERENTIAL (MANUAL DIFF)
[2020-11-28 06:04] LABS: Chloride 110 mmol/L (98-107); Sodium 142 mmol/L (136-145)
[2020-11-28 06:05] LABS: Potassium 5.3 mmoL/L (3.5-5.1)
[2020-11-28 06:06] LABS: Bacteria,Urine 3+ /lpf; RBC,Urine 20-50 #/hpf (0-3); WBC,Urine 50-100 #/hpf (0-3)
[2020-11-28 06:07] LABS: Alanine Aminotransferase 15 U/L (12-78); Alkaline Phosphatase 94 U/L (38-126); Anion Gap 16.3 mEq/L (5-15); Aspartate Amino Transferase 21 U/L (17-59); Bilirubin,Total 0.4 mg/dl (0.2-1.3); Blood Urea Nitrogen 28 mg/dl (9-20); Carbon Dioxide 21 mmol/L (22.0-30.0); Estimated Glomerular Filt Rate 41 ml/min (>60); GFR (African American) 50 ML/MIN (>60)
[2020-11-28 06:08] LABS: Albumin Level 4.2 g/dl (3.5-5.0); Albumin/Globulin Ratio 1.2 (1.1-1.8); Calcium 9.6 mg/dl (8.4-10.2); Globulin 3.4 g/dL (1.3-3.2); Glucose 109 mg/dl (74-100); Total Protein,Serum 7.6 g/dl (6.3-8.2)
[2020-11-28 06:23] LABS: Eosinophils % 7 % (0-3); Lymphocytes % 23 % (10-50); Monocytes % 6 % (2-9); Neutrophils % 63 % (42-76); Platelet Estimate Normal; RBC Morphology Normal; Total Cells Counted 100
== END ==
PROVIDERS: Visit Provider Emergency Medicine
DX: R06.09 Other forms of dyspnea (principal); R10.9 Unspecified abdominal pain
CPT/HCPCS: 80053; 81001; 85007; 85025; 87086; 87088; 87186

== ENCOUNTER 2020-11-30 22:48 | Inpatient (IN) | payer MEDICARE, MEDICAID, SELFPAY ==
[2020-11-30 22:47] VITALS: BP 177/82; PULSE 89; RESP 15; TEMP 36.8; O2SAT 95; BMI 20.8
--- NOTE | 2020-11-30 23:33 | XR_ITS ---
PROCEDURE INFORMATION: Exam: XR Pelvis Exam date and time: 11/30/2020 11:33 PM Age: 85 years old Clinical indication: Difficulty in walking and other: Scooting on floor weakness; Prior surgery; Surgery date: 6+ months; Surgery type: RT hip pin; Patient HX: Scooting on floor AMS; Additional info: Down on floor scooting TECHNIQUE: Imaging protocol: XR pelvis. Views: 1 or 2 view. COMPARISON: CT ABDOMEN PELVIS WO CON 01/23/2020 7:05 PM FINDINGS: Bones/joints: Severe degenerative changes involving bilateral hip joints with joint space narrowing and sclerotic changes. Femoral head flattening bilaterally. Intramedullary harrison and dynamic compression screw fixation of the right hip. Osteopenia. No acute fracture. Soft tissues: Unremarkable. IMPRESSION: Chronic and postsurgical changes but no acute findings.
--- NOTE | 2020-11-30 23:33 | XR_ITS ---
PROCEDURE INFORMATION: Exam: XR Chest Exam date and time: 11/30/2020 11:33 PM Age: 85 years old Clinical indication: Other: AMS weakness wont stand up; Patient HX: Weakness, AMS, wont stand TECHNIQUE: Imaging protocol: XR of the chest. Views: 1 view. COMPARISON: CR XR CHEST PORTABLE 01/27/2020 1:43 PM FINDINGS: Lungs: Interstitial pneumonia in the right lower lobe and left lung base. Underlying emphysema. Pleural spaces: Unremarkable. No pleural effusion. No pneumothorax. Heart/Mediastinum: Unremarkable. No cardiomegaly. Bones/joints: Unremarkable. IMPRESSION: Bilateral interstitial pneumonia.
[2020-11-30 23:44] VITALS: BP 114/59; PULSE 85; O2SAT 96
[2020-11-30 23:44] LABS: Chloride 111 mmol/L (98-107)
[2020-11-30 23:45] LABS: Potassium 5.9 mmoL/L (3.5-5.1); Sodium 142 mmol/L (136-145)
[2020-11-30 23:47] LABS: Alanine Aminotransferase 35 U/L (12-78); Alkaline Phosphatase 79 U/L (38-126); Aspartate Amino Transferase 114 U/L (17-59); Bilirubin,Total 0.4 mg/dl (0.2-1.3); Blood Urea Nitrogen 46 mg/dl (9-20); Creatinine Clearance Estimated 15 mL/min (50-200); Estimated Glomerular Filt Rate 19 ml/min (>60); GFR (African American) 22 ML/MIN (>60)
[2020-11-30 23:48] LABS: Albumin/Globulin Ratio 1.2 (1.1-1.8); Anion Gap 17.9 mEq/L (5-15); Calcium 9.3 mg/dl (8.4-10.2); Carbon Dioxide 19 mmol/L (22.0-30.0); Globulin 3.4 g/dL (1.3-3.2); Glucose 176 mg/dl (74-100); Total Protein,Serum 7.4 g/dl (6.3-8.2)
[2020-12-01 00:01] LABS: Basophils # 0.1 K/mm3 (0-0.2); Basophils % 0.5 % (0.1-2.0); Eosinophils # 0.9 K/mm3 (0.0-0.4); Eosinophils % 5.5 % (0.1-12.0); Hematocrit 30.7 % (42.0-52.0); Lymphocytes # 2.6 K/mm3 (0.7-4.5); Lymphocytes % 16.1 % (10-50); Mean Corpuscular HGB Conc 32.5 g/dL (31.8-35.4); Mean Corpuscular Hemoglobin 32.7 pg (27.0-31.2); Mean Corpuscular Volume 100.6 fl (80-94); Mean Platelet Volume 7.9 fl (7.4-10.4); Monocytes # 0.8 K/mm3 (0.1-1.0); Neutrophils # 11.7 K/mm3 (1.8-7.8); Neutrophils % 72.9 % (37.0-80.0); Platelet Count 312 K/mm3 (142-424); Red Blood Count 3.06 M/mm3 (4.60-6.20); Red Cell Distribution Width 13.4 % (11.5-17.5); White Blood Count 16.1 K/mm3 (4.8-10.8)
[2020-12-01 00:04] LABS: MANUAL DIFFERENTIAL MANUAL DIFFERENTIAL (MANUAL DIFF)
--- NOTE | 2020-12-01 00:08 | HMH.EDAMS ---
ED Disposition Clinical Impression: KATHYA (acute kidney injury), Acute delirium, Hyperkalemia UTI (urinary tract infection) Qualifiers: Urinary tract infection type: site unspecified Hematuria presence: without hematuria Qualified Code(s): N39.0 - Urinary tract infection, site not specified Anemia Qualifiers: Anemia type: unspecified type Qualified Code(s): D64.9 - Anemia, unspecified Disposition: Admitted As Inpatient Condition on Discharge: Serious - Critical Care Critical Care Time: No Attestation: On 11/30/20, the high probability of a clinically significant, sudden or life threatening deterioration of the following system(s) required my full and direct attention, intervention and personal management. The time I documented below is in addition to time spent performing reported procedures but includes the following listed in this critical care notation. Medical Decision Making - Medical Records Medical records reviewed: Yes: I reviewed the patient's medical records. - John Inquiry Pt receiving controlled substance: No Vital Signs: 11/30/20 22:47 11/30/20 23:44 Temperature 98.2 F Temperature Source Oral Pulse Rate 85 Pulse Rate [Right Brachial] 89 Respiratory Rate 15 Blood Pressure 114/59 L Blood Pressure [Right Arm] 177/82 H Blood Pressure Mean [Right Arm] 113 Blood Pressure Source [Right Arm] Automatic Cuff Blood Pressure Position [Right Arm] Sitting 02 Sat by Pulse Oximetry 95 96 Oxygen Delivery Method Room Air - Lab Data Lab results reviewed: Yes: I reviewed the patient's lab results. Lab Results 11/30/20 22:56: WBC 16.1 H, RBC 3.06 L, Hgb 10.0 L, Hct 30.7 L, MCV 100.6 H, MCH 32.7 H, MCHC 32.5, RDW 13.4, Plt Count 312, MPV 7.9, Neut % (Auto) 72.9, Lymph % (Auto) 16.1, [place] % (Auto) 5.0, Eos % (Auto) 5.5, Baso % (Auto) 0.5, Neut # (Auto) 11.7 H, Lymph # (Auto) 2.6, [place] # (Auto) 0.8, Eos # (Auto) 0.9 H, Baso # (Auto) 0.1, Total Counted 100, Neutrophils % (Manual) 72, Lymphocytes % (Manual) 20, Monocytes % (Manual) 3, Eosinophils % (Manual) 5 H, Platelet Estimate Normal, Macrocytosis 1+ 11/30/20 22:56: Sodium 142, Potassium 5.9 H, Chloride 111 H, Carbon Dioxide 19 L, Anion Gap 17.9 H, BUN 46 H D, Creatinine 3.20 H D, Estimated Creat Clear 15, Estimated GFR 19 L*, Est GFR ( Amer) 22 L D, Glucose 176 H, Calcium 9.3, Total Bilirubin 0.4, AST 114 H D, ALT 35 D, Alkaline Phosphatase 79, Total Protein 7.4, Albumin 4.0, Globulin 3.4 H, Albumin/Globulin Ratio 1.2 12/01/20 00:20: Urine Color Yellow, Urine Appearance Slightly cloudy, Urine pH 6.5, Ur Specific [place] 1.015, Urine Protein 1+, Urine Glucose (UA) Negative, Urine Ketones Negative, Urine Blood 3+, Urine Nitrate Negative, Urine Bilirubin Negative, Urine Urobilinogen 0.2, Ur Leukocyte Esterase 3+ A, Urine RBC 5-10, Urine WBC 5-10, Amorphous Sediment 1+, Urine Bacteria 1+, Urine Mucus 1+ Result diagrams: 11/30/20 22:56 11/30/20 22:56 Orders (Tests/Meds): ED MEDICATIONS Generic Name Dose Route Start Last Admin Trade Name Freq PRN Reason Stop Dose Admin Ceftriaxone Sodium 1 gm/ 50 mls @ 100 mls/hr 12/01/20 01:00 12/01/20 01:07 Sodium Chloride IV 12/15/20 00:59 100 mls/hr Q24H MARIAH Administration Protocol ORDERS Category Date Time Status Chest XR -- portable [XR chest portable] Stat Exams 11/30/20 23:33 Taken XR pelvis 1-2V Stat Exams 11/30/20 23:33 Taken Rapid PCR Covid and Flu A/B Stat Lab 12/01/20 01:05 Ordered Urine Culture Stat Micro 12/01/20 00:20 Received - Radiology Data #1 Image(s): Chest, Pelvis Image Reviewed: Yes I have reviewed radiologist's interpretation Preliminary Findings: Abnormal Medical Decision Narrative: has acute uti and kathya and will need fluids and iv abx Altered Mental Status HPI - General Chief Complaint: Altered Mental Status Stated Complaint: altered mental status Time Seen by Provider: 12/01/20 00:08 Mode of Arrival: EMS Source of Information: [facility]
[2020-12-01 00:29] LABS: Microscopic, Urine URINE MICROSCOPIC (MICROSCOPIC)
[2020-12-01 00:32] LABS: Bilirubin,Urine Negative (Negative); Blood, Urine 3+ (Negative); Color,Urine YELLOW (Yellow); Glucose,Urine (UA) Negative (Negative); Ketones,Urine Negative (Negative); Leukocyte Esterase,Urine 3+ (Negative); Nitrate,Urine Negative (Negative); PH,Urine 6.5 (5.0-8.5); Protein,Urine 1+ (Negative); Specific Gravity, Urine 1.015 (1.005-1.030); Urobilinogen,Urine 0.2 EU/dl (0.2)
[2020-12-01 00:37] LABS: Appearance,Urine Slightly Cloudy (Clear)
[2020-12-01 00:41] LABS: Amorphous Sediment,Urine 1+ /lpf; Bacteria,Urine 1+ /lpf; Mucus,Urine 1+ /lpf
[2020-12-01 00:57] LABS: Eosinophils % 5 % (0-3); Lymphocytes % 20 % (10-50); Macrocytosis 1+; Monocytes % 3 % (2-9); Neutrophils % 72 % (42-76); Platelet Estimate Normal; Total Cells Counted 100
[2020-12-01 02:33] LABS: Coronavirus 19, PCR Not Detected (NotDetected); Influenza A, PCR Not Detected (NotDetected); Influenza B, PCR Not Detected (NotDetected)
[2020-12-01 02:47] LABS: Lactic Acid 1.1 mmol/L (0.7-2.1)
--- NOTE | 2020-12-01 03:39 | PC.NURSE ---
PT ARRIVED TO FLOOR VIA STRETCHER FROM ED W/STAFF AT [id number]
[2020-12-01 03:44] VITALS: BP 108/68; PULSE 84; RESP 16; TEMP 36.8; O2SAT 95
[2020-12-01 04:16] VITALS: BMI 24.4
[2020-12-01 05:42] VITALS: BP 117/39; PULSE 72; RESP 14; TEMP 36.8; O2SAT 96
--- NOTE | 2020-12-01 06:23 | PC.NURSE ---
pt admitted to floor with AMS,KATHYA,UTI,PNA. pt is alert to self at times. unable to answer questions appropriately and admission and med rec completed from medical records. pt woke up agitated, confused, and combative. attempted to redirect pt several times and pt was assisted to w/c due to pt attempts to climb out of bed. pt wheeled self around hallway yelling and hitting at staff. md was notified and one time dose was given and did provide relief. pt was assisted back to bed and is sleeping at this time. iv fluids running per order. pt does attempt to use urinal. vss. monitoring vss at this time and have remained stable. bed alarm is on. call light in reach. will continue to monitor
[2020-12-01 07:02] LABS: Basophils # 0.1 K/mm3 (0-0.2); Basophils % 0.5 % (0.1-2.0); Eosinophils % 7.1 % (0.1-12.0); Hematocrit 27.4 % (42.0-52.0); Lymphocytes # 2.5 K/mm3 (0.7-4.5); Lymphocytes % 18.7 % (10-50); Mean Corpuscular HGB Conc 32.7 g/dL (31.8-35.4); Mean Corpuscular Hemoglobin 32.9 pg (27.0-31.2); Mean Corpuscular Volume 100.7 fl (80-94); Mean Platelet Volume 7.9 fl (7.4-10.4); Monocytes # 0.7 K/mm3 (0.1-1.0); Monocytes % 5.2 % (1.7-9.3); Neutrophils # 9.2 K/mm3 (1.8-7.8); Neutrophils % 68.5 % (37.0-80.0); Platelet Count 287 K/mm3 (142-424); Red Blood Count 2.72 M/mm3 (4.60-6.20); Red Cell Distribution Width 13.5 % (11.5-17.5); White Blood Count 13.5 K/mm3 (4.8-10.8)
[2020-12-01 07:06] LABS: Chloride 116 mmol/L (98-107); Sodium 144 mmol/L (136-145)
[2020-12-01 07:07] LABS: Potassium 4.9 mmoL/L (3.5-5.1)
[2020-12-01 07:10] LABS: Anion Gap 12.9 mEq/L (5-15); Blood Urea Nitrogen 44 mg/dl (9-20); Calcium 8.8 mg/dl (8.4-10.2); Carbon Dioxide 20 mmol/L (22.0-30.0); Creatinine Clearance Estimated 21 mL/min (50-200); Estimated Glomerular Filt Rate 24 ml/min (>60); GFR (African American) 28 ML/MIN (>60); Glucose 99 mg/dl (74-100)
[2020-12-01 07:20] LABS: Hemoglobin 8.9 g/dL (14.1-18.0)
--- NOTE | 2020-12-01 07:29 | P.CONPHA_ITS ---
[facility] Pharmacy VTE Monitoring - Patient Demographics Admission date: 12/01/20 Report Date: 12/01/20 Time: 07:29 Allergies/Adverse Reactions: Patient Allergies cephalexin [From Keflex] Allergy (Verified 09/07/20 12:15) Unknown allergy reaction Height: 1.73 m Weight: 73.17 kg Patient Problems: Current Active Problems Urinary tract infection (Acute) Anemia (Acute) KTAHYA (acute kidney injury) (Acute) Acute delirium (Acute) Hyperkalemia (Acute) - VTE Risk Labs: VTE Related Lab Results Hgb 8.9 g/dL (14.1-18.0) L D 12/01/20 06:00 Hct 27.4 % (42.0-52.0) L 12/01/20 06:00 Plt Count 287 K/mm3 (142-424) 12/01/20 06:00 BUN 44 mg/dl (9-20) H 12/01/20 06:00 Creatinine 2.60 mg/dl (0.66-1.25) H 12/01/20 06:00 Estimated Creat Clear 21 mL/min (50-200) 12/01/20 06:00 Was VTE Risk Assessment Performed: Yes VTE Score: 5 VTE Risk Level: Low Risk - Prophylaxis VTE Prophylaxis Ordered?: Yes Types of VTE Prophylaxis: TEDS Knee High Location of Applied Device: Bilateral Lower Extremeties
--- NOTE | 2020-12-01 08:37 | HMH.HP ---
*Admission Date: 12/01/20 *Chief complaint: Altered mental status *History of present illness: 85-year-old male patient presented to the emergency department via squad from detention, detention nurse reports patient in hallway confused with altered mental status and sent to ED for evaluation. No nausea/vomiting/diarrhea reported but nurse reports decreased p.o. intake Lab work in the emergency department white blood cell count 16.1, H/H 10.0/30.7 Sodium 142, potassium 5.9, BUN 46, creatinine 3.2 UA revealed leukocytes 3+ SARS-COV-2 - Influenza a and B both negative 11/30/20 cxr: FINDINGS: Lungs: Interstitial pneumonia in the right lower lobe and left lung base. Underlying emphysema. Pleural spaces: Unremarkable. No pleural effusion. No pneumothorax. Heart/Mediastinum: Unremarkable. No cardiomegaly. Bones/joints: Unremarkable. IMPRESSION: Bilateral interstitial pneumonia. Electronically signed by Nimo Mclean, 85-year-old male patient laying in bed resting quietly with eyes closed, does awaken to verbal stimuli. Patient did receive antianxiety medication during night for anxious/restlessness. No apparent distress. [facility] History I have reviewed the patient's past medical history: Yes Medical History: Reports:: Arrhythmia, Chronic Obstructive Pulmonary Disease (COPD), Coronary Artery Disease, Hyperlipidemia, Hypertension, Renal Disease, Urinary Tract Infection Denies:: Cancer, Diabetes Mellitus Type 1, Diabetes Mellitus Type 2, MRSA *Have you ever received a pneumonia vaccine?: Yes *Have you received a flu vaccine this season?: Yes Other Medical History: Reports: Anemia, Arthritis Laterality Cases: Right: Other Other Surgeries: Yes: Cardiac Catheterization, Coronary Stent Amputation: No Fractures: No - *Social History Smoking Status: Former smoker Tobacco Type: cigarettes # Packs/Day (cigarettes): 1 #Yrs smoked (if former smoker): 57 Alcohol Intake: never Substance Use Type: denies use *Occupational Status:: retired, disabled Housing: detention Household Members: family *Travel in the last 8 weeks: None Family Hx:: Unable to obtain Review of Systems - Review of Systems Review of systems:: pertinent systems reviewed and negative unless documented below - Constitutional Reports lack of energy, Denies anorexia, Denies fatigue - Eyes Denies blurry vision, Denies change in vision - ENT Reports abnormal hearing, Reports hearing loss, Denies facial pain - *Cardiovascular Denies chest pain, Denies shortness of breath - *Respiratory Denies chest congestion, Denies cough - *Gastrointestinal Denies abdominal pain, Denies change in stools - *Musculoskeletal Denies decreased muscle mass, Denies limited joint movement - Integumentary/Breasts Denies change in skin color, Denies changing lesions - *Neurologic Reports confusion, Reports weakness, Denies localized weakness, Denies headache(s), Denies tingling/numbness/burning sensations, Denies seizure-like activity - Psychiatric Reports confusion, Reports irritability - Endocrine Denies cold intolerance, Denies rapid, pounding, or irregular heartbeat - Hematologic/Lymphatic Denies easy bleeding, Denies enlarged lymph nodes - Allergic/Immunologic Denies GI upset with certain foods, Denies lip swelling Meds Home Medications Medication Instructions Recorded Confirmed Type Finasteride [Proscar 5mg Tablet] 5 mg PO DAILY 04/27/18 12/01/20 History Tamsulosin HCl [Flomax 0.4mg 0.4 mg PO HS 04/27/18 12/01/20 History capsule] Losartan Potassium [Cozaar 50mg 50 mg PO DAILY 01/29/19 12/01/20 History Tablets] lactulose 10 gram/15 mL oral 30 ml PO DAILYP PRN ml 08/07/19 12/01/20 History solution acetaminophen 500 mg capsule 500 mg PO Q4HP PRN cap 01/20/20 12/01/20 History sennosides 8.6 mg capsule 17.2 mg PO HS cap 01/20/20 12/01/20 History ondansetron HCL [Ondansetron 4mg 4 mg PO Q8HP PRN 01/23/20 12/01/20
--- NOTE | 2020-12-01 08:43 | SW/DCPLANNER ---
This patient currently resides at [facility]. I spoke with Judith from [place] to confirm patient is ICF level of care. I will continue to follow up with Judith until patient is medically stable for discharge. Discharge date is unknown at this time.
[2020-12-01 23:05] VITALS: BP 156/96; PULSE 105; RESP 20; TEMP 37; O2SAT 98
--- NOTE | 2020-12-02 02:34 | PC.NURSE ---
patient pulled iv out, attempt x 2 to restart unsuccessfully. patient pleasantly confused
--- NOTE | 2020-12-02 03:36 | PC.NURSE ---
patient has had periods of aggitation tonight, patient currently attempting to pull 2 iv out for this shift. dr. márquez notified. order obtained for 1 x dose of ativan 0.5 mg
[2020-12-02 07:31] VITALS: BP 123/72; PULSE 87; RESP 18; TEMP 36.8; O2SAT 97
[2020-12-02 07:43] LABS: Anion Gap 12.7 mEq/L (5-15); Basophils # 0.1 K/mm3 (0-0.2); Basophils % 0.8 % (0.1-2.0); Blood Urea Nitrogen 27 mg/dl (9-20); Calcium 9.3 mg/dl (8.4-10.2); Carbon Dioxide 22 mmol/L (22.0-30.0); Chloride 117 mmol/L (98-107); Creatinine Clearance Estimated 50 mL/min (50-200); Eosinophils # 0.4 K/mm3 (0.0-0.4); Eosinophils % 4.1 % (0.1-12.0); Estimated Glomerular Filt Rate 63 ml/min (>60); GFR (African American) 77 ML/MIN (>60); Glucose 111 mg/dl (74-100); Hematocrit 28.6 % (42.0-52.0); Hemoglobin 9.3 g/dL (14.1-18.0); Lymphocytes % 19.2 % (10-50); Mean Corpuscular HGB Conc 32.7 g/dL (31.8-35.4); Mean Corpuscular Hemoglobin 32.2 pg (27.0-31.2); Mean Corpuscular Volume 98.5 fl (80-94); Mean Platelet Volume 7.5 fl (7.4-10.4); Monocytes # 0.6 K/mm3 (0.1-1.0); Monocytes % 5.4 % (1.7-9.3); Neutrophils # 7.3 K/mm3 (1.8-7.8); Neutrophils % 70.6 % (37.0-80.0); Platelet Count 299 K/mm3 (142-424); Potassium 4.7 mmoL/L (3.5-5.1); Red Cell Distribution Width 13.6 % (11.5-17.5); Sodium 147 mmol/L (136-145); White Blood Count 10.4 K/mm3 (4.8-10.8)
--- NOTE | 2020-12-02 08:49 | HMH.ACPN2 ---
Internal Medicine - PN: Subj *Date: 12/02/20 *Time: 08:49 Interval history: 85-year-old male patient lying in bed resting quietly with eyes closed, awakens to tactile stimuli. He is confused this morning, nursing staff reports he was anxious during the night he did receive 0.5 mg of Ativan IV and resting quietly afterwards. Still awaiting urine culture results. His chest x-ray did show bilateral interstitial pneumonia, he is without fever, cough, chest congestion, or shortness of breath. He is on ceftriaxone for his UTI. Exam Vital signs and Labs for Last 24 Hours: Temp Pulse Resp BP Pulse Ox 98.2 F 87 18 123/72 97 12/02/20 07:31 12/02/20 07:31 12/02/20 07:31 12/02/20 07:31 12/02/20 07:31 Laboratory Results - last 24 hr 12/01/20 00:20: Urine Color Yellow, Urine Appearance Slightly cloudy, Urine pH 6.5, Ur Specific [place] 1.015, Urine Protein 1+, Urine Glucose (UA) Negative, Urine Ketones Negative, Urine Blood 3+, Urine Nitrate Negative, Urine Bilirubin Negative, Urine Urobilinogen 0.2, Ur Leukocyte Esterase 3+ A, Urine RBC 5-10, Urine WBC 5-10, Amorphous Sediment 1+, Urine Bacteria 1+, Urine Mucus 1+ 12/02/20 06:50: WBC 10.4, RBC 2.90 L, Hgb 9.3 L, Hct 28.6 L, MCV 98.5 H, MCH 32.2 H, MCHC 32.7, RDW 13.6, Plt Count 299, MPV 7.5, Neut % (Auto) 70.6, Lymph % (Auto) 19.2, [place] % (Auto) 5.4, Eos % (Auto) 4.1, Baso % (Auto) 0.8, Neut # (Auto) 7.3, Lymph # (Auto) 2.0, [place] # (Auto) 0.6, Eos # (Auto) 0.4, Baso # (Auto) 0.1 12/02/20 06:50: Sodium 147 H, Potassium 4.7, Chloride 117 H, Carbon Dioxide 22, Anion Gap 12.7, BUN 27 H D, Creatinine 1.10 D, Estimated Creat Clear 50, Estimated GFR 63, Est GFR ( Amer) 77 D, Glucose 111 H, Calcium 9.3 I & O for Last 24 hours: Intake & Output 11/29/20 11/30/20 12/01/20 12/02/20 23:59 23:59 23:59 23:59 Intake Total 1461 / 1461 240 / 240 Output Total 226 / 226 Balance 1235 / 1235 240 / 240 Weight 137 lb 161 lb 5 oz Microbiology Reports for the Last 24 Hours: Microbiology 12/01/20 00:20 Urine,Catheterized Urine Culture - Preliminary Gram Positive Cocci - Constitutional no acute distress - *Routine HEENT Exam Head: Present: normocephalic Eye: Present: EOMI ENT: Present: mucous membranes moist - *Routine Neck Exam Present: trachea midline. Absent: tracheal deviation - *Routine Respiratory Exam Present: CTA bilaterally. Absent: accessory muscle use - *Routine Cardiovascular Exam Present: RRR - *Routine Abdominal Exam Present: soft, normoactive bowel sounds. Absent: tenderness, firm - *Routine Extremities Exam Present: full ROM, pulses intact. Absent: cyanosis, edema, calf tenderness - *Routine Skin Exam Present: intact, dry, warm. Absent: cyanosis, erythema - *Routine Neurological Exam Present: alert, altered mental status. Absent: oriented X3 - Routine Psychiatric Exam Present: unable to assess Assessment and Plan (1) Urinary tract infection Status: Acute Qualifiers: Urinary tract infection type: site unspecified Hematuria presence: without hematuria Qualified Code(s): N39.0 - Urinary tract infection, site not specified Category: Medical Code(s): N39.0 - Urinary tract infection, site not specified (2) Altered mental status Status: Acute Qualifiers: Altered mental status type: unspecified Qualified Code(s): R41.82 - Altered mental status, unspecified Category: Medical Code(s): R41.82 - Altered mental status, unspecified (3) Acute on chronic anemia Status: Acute Category: Medical Code(s): D64.9 - Anemia, unspecified (4) KATHYA (acute kidney injury) Status: Acute Category: Medical Code(s): N17.9 - Acute kidney failure, unspecified (5) COPD (chronic obstructive pulmonary disease) Status: Chronic Qualifiers: COPD type: unspecified COPD Qualified Code(s): J44.9 - Chronic obstructive pulmonary disease, unspecified Category: Medical Co
[2020-12-02 13:45] VITALS: BMI 24.3
--- NOTE | 2020-12-02 13:50 | DIET.NUTRFU ---
Pt with significant AMS, has refused most nourishment since admission, unable to effectively communicate with pt. Supplements on diet order TID. Please encourage/cue at mealtimes to best of ability prioritizing supplements and protein foods. Did confirm with Bean he is on a mechanical soft diet with thin liquids there.
[2020-12-02 15:07] VITALS: BP 117/76; PULSE 88; RESP 20; TEMP 36.6; O2SAT 99
--- NOTE | 2020-12-02 16:48 | PC.NURSE ---
Pt noted to be anxious and agitated upon assessment this AM. After administration of Ativan, pt has been pleasant and cooperative. A&O X4 with occasional episodes of confusion. No complaints of pain or SOA. Pt is on room air with sats. >90%. Lungs CTA. No edema noted. Skin is C/D/I. Abdomen is flat, soft, and non-tender. No N/V/D. No BM thus far this shift. Pt ambulates with assistance X1 and sat up in the recliner for several hours today. 20 G peripheral IV in the RT forearm is patent and infusing NS @ 100 ML/HR. VSS. Bed safety/chair safety alarm is set. Call light within reach. Will continue to monitor.
[2020-12-02 20:00] VITALS: BP 182/71; PULSE 80; RESP 20; TEMP 36.6; O2SAT 94
--- NOTE | 2020-12-03 03:27 | PC.NURSE ---
PT HAS BEEN CONFUSED ENTIRE SHIFT. TOLERATING RA WELL. PT SPIT NIGHT TIME MEDS OUT. UNABLE TO ADMINISTER. X2 ASSIST IN ROOM. BED SAFETY APPLIED. PRN MED ADMINISTERED FOR AGITATION. SLEEPING MAJORITY OF SHIFT. INCONTINENT, KEPT CLEAN AND DRY. VSS WILL CONTINUE TO MONITOR.
[2020-12-03 04:00] VITALS: BP 155/78; PULSE 80; RESP 20; TEMP 36.5; O2SAT 94
[2020-12-03 05:00] VITALS: BMI 24.4
[2020-12-03 07:55] VITALS: BP 160/82; PULSE 85; RESP 19; TEMP 36.6; O2SAT 95
[2020-12-03 08:00] VITALS: PULSE 85; RESP 19; O2SAT 95
[2020-12-03 08:59] LABS: Basophils # 0.1 K/mm3 (0-0.2); Basophils % 0.5 % (0.1-2.0); Eosinophils # 0.2 K/mm3 (0.0-0.4); Eosinophils % 1.5 % (0.1-12.0); Hematocrit 29.8 % (42.0-52.0); Hemoglobin 9.7 g/dL (14.1-18.0); Lymphocytes # 1.9 K/mm3 (0.7-4.5); Lymphocytes % 14.5 % (10-50); Mean Corpuscular HGB Conc 32.6 g/dL (31.8-35.4); Mean Corpuscular Hemoglobin 32.1 pg (27.0-31.2); Mean Corpuscular Volume 98.5 fl (80-94); Mean Platelet Volume 7.7 fl (7.4-10.4); Monocytes # 0.6 K/mm3 (0.1-1.0); Monocytes % 4.6 % (1.7-9.3); Neutrophils # 10.2 K/mm3 (1.8-7.8); Neutrophils % 78.8 % (37.0-80.0); Platelet Count 296 K/mm3 (142-424); Red Blood Count 3.03 M/mm3 (4.60-6.20); Red Cell Distribution Width 13.7 % (11.5-17.5); White Blood Count 12.9 K/mm3 (4.8-10.8)
[2020-12-03 09:08] LABS: Chloride 113 mmol/L (98-107); Potassium 4.2 mmoL/L (3.5-5.1); Sodium 145 mmol/L (136-145)
[2020-12-03 09:11] LABS: Blood Urea Nitrogen 20 mg/dl (9-20); Creatinine Clearance Estimated 55 mL/min (50-200); Estimated Glomerular Filt Rate 71 ml/min (>60); GFR (African American) 86 ML/MIN (>60)
[2020-12-03 09:12] LABS: Anion Gap 15.2 mEq/L (5-15); Calcium 9.3 mg/dl (8.4-10.2); Carbon Dioxide 21 mmol/L (22.0-30.0); Glucose 111 mg/dl (74-100)
--- NOTE | 2020-12-03 10:51 | PC.NURSE ---
Pt given neb treament with hyptertonic saline. Pt is restless and somewhat combative. He is unable to understand procudes but cup left at bedside.
[2020-12-03 11:19] VITALS: BP 158/72; PULSE 80; RESP 18; TEMP 36.8; O2SAT 94
--- NOTE | 2020-12-03 12:41 | HMH.ACPN2 ---
Internal Medicine - PN: Subj *Date: 12/03/20 *Time: 19:21 Interval history: 85-year-old male patient resting quietly in bed with eyes closed he does awaken to tactile stimuli, he is still confused. Staff reports he was not as combative last night as previous night when asked if he has any pain he does replied no. Urine culture grew gram-positive cocci, will change antibiotic from Rocephin to ertapenem and assess mental status in a.m. Exam Vital signs and Labs for Last 24 Hours: Temp Pulse Resp BP Pulse Ox 98.2 F 80 18 158/72 H 94 L 12/03/20 11:19 12/03/20 11:19 12/03/20 11:19 12/03/20 11:19 12/03/20 11:19 Laboratory Results - last 24 hr 12/03/20 08:42: WBC 12.9 H, RBC 3.03 L, Hgb 9.7 L, Hct 29.8 L, MCV 98.5 H, MCH 32.1 H, MCHC 32.6, RDW 13.7, Plt Count 296, MPV 7.7, Neut % (Auto) 78.8, Lymph % (Auto) 14.5, [place] % (Auto) 4.6, Eos % (Auto) 1.5, Baso % (Auto) 0.5, Neut # (Auto) 10.2 H, Lymph # (Auto) 1.9, [place] # (Auto) 0.6, Eos # (Auto) 0.2, Baso # (Auto) 0.1 12/03/20 08:42: Sodium 145, Potassium 4.2, Chloride 113 H, Carbon Dioxide 21 L, Anion Gap 15.2 H, BUN 20 D, Creatinine 1.00, Estimated Creat Clear 55, Estimated GFR 71, Est GFR ( Amer) 86, Glucose 111 H, Calcium 9.3 I & O for Last 24 hours: Intake & Output 11/30/20 12/01/20 12/02/20 12/03/20 23:59 23:59 23:59 23:59 Intake Total 1461 / 1461 875 / 875 0 / 0 Output Total 226 / 226 Balance 1235 / 1235 875 / 875 -1 / -1 Weight 137 lb 161 lb 5 oz 160 lb 14.999 oz 161 lb 1 oz Microbiology Reports for the Last 24 Hours: Microbiology 12/01/20 01:30 Blood Blood Culture - Preliminary NO GROWTH AFTER 48 HOURS 12/01/20 01:30 Blood Blood Culture - Preliminary NO GROWTH AFTER 48 HOURS 12/01/20 00:20 Urine,Catheterized Urine Culture - Preliminary Gram Positive Cocci - Constitutional no acute distress, thin, chronically ill appearing - *Routine HEENT Exam Head: Present: normocephalic Eye: Present: EOMI ENT: Present: mucous membranes dry - *Routine Neck Exam Present: trachea midline. Absent: tracheal deviation - *Routine Respiratory Exam Present: CTA bilaterally. Absent: accessory muscle use - *Routine Cardiovascular Exam Present: RRR - *Routine Abdominal Exam Present: soft, normoactive bowel sounds. Absent: tenderness, firm - *Routine Extremities Exam Present: full ROM, pulses intact. Absent: cyanosis, clubbing, calf tenderness - *Routine Skin Exam Present: intact, dry, warm. Absent: cyanosis, erythema - *Routine Neurological Exam Present: alert, oriented X3 Assessment and Plan (1) Urinary tract infection Status: Acute Qualifiers: Urinary tract infection type: site unspecified Hematuria presence: without hematuria Qualified Code(s): N39.0 - Urinary tract infection, site not specified Category: Medical Code(s): N39.0 - Urinary tract infection, site not specified (2) Altered mental status Status: Acute Qualifiers: Altered mental status type: unspecified Qualified Code(s): R41.82 - Altered mental status, unspecified Category: Medical Code(s): R41.82 - Altered mental status, unspecified (3) Acute on chronic anemia Status: Acute Category: Medical Code(s): D64.9 - Anemia, unspecified (4) KATHYA (acute kidney injury) Status: Acute Category: Medical Code(s): N17.9 - Acute kidney failure, unspecified (5) COPD (chronic obstructive pulmonary disease) Status: Chronic Qualifiers: COPD type: unspecified COPD Qualified Code(s): J44.9 - Chronic obstructive pulmonary disease, unspecified Category: Medical Code(s): J44.9 - Chronic obstructive pulmonary disease, unspecified (6) Renal insufficiency Status: Chronic Category: Medical Code(s): N28.9 - Disorder of kidney and ureter, unspecified (7) Coronary artery disease Status: Chronic Qualifiers: Coron
[2020-12-03 14:37] VITALS: BP 160/72; PULSE 80; RESP 20; TEMP 36.6; O2SAT 94
--- NOTE | 2020-12-03 16:31 | PC.NURSE ---
Pt has been pleasant and cooperative for the majority of the shift with only 1 episode of agitation. Ativan administered per MAR with favorable results. Alert to person and occasionally place. No complaints of pain or SOA. Pt is on room air with sats. >90%. Lungs CTA. No edema noted. Skin is C/D/I. Abdomen is flat, soft, and non-tender. No N/V/D. Pt is incontinent and voids clear, yellow urine without issue. 1 large, brown, soft stool this shift. Pt ambulates with assistance X1 and sat up in the recliner for a few hours today. Appetite is poor and pt refuses meals. 20 G peripheral IV in the LT upper arm is patent and infusing NS @ 100 ML/HR. VSS. Bed safety alarm is set. Call light within reach. Will continue to monitor.
[2020-12-03 20:00] VITALS: BP 166/80; PULSE 88; RESP 19; TEMP 36.6; O2SAT 94; O2SAT 95
[2020-12-04] VITALS: BP 157/77; PULSE 85; RESP 20; TEMP 36.4; O2SAT 95
[2020-12-04 04:00] VITALS: BP 145/87; PULSE 83; RESP 20; TEMP 37.1; O2SAT 98
[2020-12-04 05:00] VITALS: BMI 22.1
--- NOTE | 2020-12-04 05:51 | PC.NURSE ---
patient has had an uneventful night, bed at lowest level for safety, call light in reach, will continue to monitor.
[2020-12-04 06:31] LABS: Basophils # 0.1 K/mm3 (0-0.2); Basophils % 0.5 % (0.1-2.0); Eosinophils # 0.4 K/mm3 (0.0-0.4); Eosinophils % 2.5 % (0.1-12.0); Hematocrit 30.7 % (42.0-52.0); Hemoglobin 10.4 g/dL (14.1-18.0); Lymphocytes # 2.9 K/mm3 (0.7-4.5); Lymphocytes % 20.4 % (10-50); Mean Corpuscular Hemoglobin 32.9 pg (27.0-31.2); Mean Corpuscular Volume 96.7 fl (80-94); Mean Platelet Volume 7.3 fl (7.4-10.4); Monocytes # 0.7 K/mm3 (0.1-1.0); Monocytes % 4.9 % (1.7-9.3); Neutrophils # 10.1 K/mm3 (1.8-7.8); Neutrophils % 71.7 % (37.0-80.0); Platelet Count 316 K/mm3 (142-424); Red Blood Count 3.18 M/mm3 (4.60-6.20); Red Cell Distribution Width 13.5 % (11.5-17.5); White Blood Count 14.1 K/mm3 (4.8-10.8)
[2020-12-04 07:00] LABS: Anion Gap 12.2 mEq/L (5-15); Blood Urea Nitrogen 18 mg/dl (9-20); Calcium 9.5 mg/dl (8.4-10.2); Carbon Dioxide 24 mmol/L (22.0-30.0); Chloride 112 mmol/L (98-107); Creatinine Clearance Estimated 50 mL/min (50-200); Estimated Glomerular Filt Rate 71 ml/min (>60); GFR (African American) 86 ML/MIN (>60); Glucose 101 mg/dl (74-100); Potassium 4.2 mmoL/L (3.5-5.1); Sodium 144 mmol/L (136-145)
[2020-12-04 07:48] VITALS: BP 142/62; PULSE 85; RESP 18; TEMP 36.9; O2SAT 97
[2020-12-04 08:00] VITALS: O2SAT 97
--- NOTE | 2020-12-04 08:48 | XR_ITS ---
PROCEDURE: XR CHEST PORTABLE CLINICAL HISTORY: cough COMPARISON: CR XR CHEST PORTABLE from 08/14/2019 CR XR CHEST PORTABLE from 01/27/2020 CR XR CHEST PORTABLE from 11/30/2020 FINDINGS: The cardiomediastinal silhouette and pulmonary vascularity are within normal limits. Patient's chin obscures the left apex. No lobar consolidation or collapse. No acute bony abnormalities. IMPRESSION: No acute findings. Dictated by: Tony Tierney MD 12/04/2020 09:20 Tony Tierney MD in [facility] 12/04/2020 09:20
--- NOTE | 2020-12-04 08:49 | HMH.ACPN2 ---
Internal Medicine - PN: Subj *Date: 12/04/20 *Time: 08:49 Interval history: pt confused, will get oob today Exam Vital signs and Labs for Last 24 Hours: Temp Pulse Resp BP Pulse Ox 98.4 F 85 18 142/62 H 97 12/04/20 07:48 12/04/20 07:48 12/04/20 07:48 12/04/20 07:48 12/04/20 07:48 Laboratory Results - last 24 hr 12/03/20 08:42: WBC 12.9 H, RBC 3.03 L, Hgb 9.7 L, Hct 29.8 L, MCV 98.5 H, MCH 32.1 H, MCHC 32.6, RDW 13.7, Plt Count 296, MPV 7.7, Neut % (Auto) 78.8, Lymph % (Auto) 14.5, [place] % (Auto) 4.6, Eos % (Auto) 1.5, Baso % (Auto) 0.5, Neut # (Auto) 10.2 H, Lymph # (Auto) 1.9, [place] # (Auto) 0.6, Eos # (Auto) 0.2, Baso # (Auto) 0.1 12/03/20 08:42: Sodium 145, Potassium 4.2, Chloride 113 H, Carbon Dioxide 21 L, Anion Gap 15.2 H, BUN 20 D, Creatinine 1.00, Estimated Creat Clear 55, Estimated GFR 71, Est GFR ( Amer) 86, Glucose 111 H, Calcium 9.3 12/04/20 06:10: WBC 14.1 H, RBC 3.18 L, Hgb 10.4 L, Hct 30.7 L, MCV 96.7 H, MCH 32.9 H, MCHC 34.0, RDW 13.5, Plt Count 316, MPV 7.3 L, Neut % (Auto) 71.7, Lymph % (Auto) 20.4, [place] % (Auto) 4.9, Eos % (Auto) 2.5, Baso % (Auto) 0.5, Neut # (Auto) 10.1 H, Lymph # (Auto) 2.9, [place] # (Auto) 0.7, Eos # (Auto) 0.4, Baso # (Auto) 0.1 12/04/20 06:10: Sodium 144, Potassium 4.2, Chloride 112 H, Carbon Dioxide 24, Anion Gap 12.2, BUN 18, Creatinine 1.00, Estimated Creat Clear 50, Estimated GFR 71, Est GFR ( Amer) 86, Glucose 101 H, Calcium 9.5 I & O for Last 24 hours: Intake & Output 12/01/20 12/02/20 12/03/20 12/04/20 11:59 11:59 11:59 11:59 Intake Total 253 / 253 1448 / 1448 635 / 635 120 / 120 Output Total 225 / 225 Balance 1447 / 1447 634 / 634 120 / 120 Weight 161 lb 5 oz 161 lb 1 oz 146 lb 8 oz Microbiology Reports for the Last 24 Hours: Microbiology 12/01/20 00:20 Urine,Catheterized Urine Culture - Final Strep agalactiae - (group b) - Constitutional chronically ill appearing - *Routine HEENT Exam Head: Present: normocephalic Eye: Present: PERRL ENT: Present: mucous membranes moist - *Routine Neck Exam Present: supple. Absent: lymphadenopathy - *Routine Respiratory Exam Present: rhonchi - *Routine Cardiovascular Exam Present: RRR - *Routine Abdominal Exam Present: soft, normoactive bowel sounds. Absent: tenderness - *Routine Extremities Exam Present: normal capillary refill. Absent: cyanosis, clubbing, edema - *Routine Skin Exam Present: warm. Absent: rash - *Routine Neurological Exam Present: alert, altered mental status - Routine Psychiatric Exam Present: normal affect Assessment and Plan (1) Urinary tract infection Status: Acute Qualifiers: Urinary tract infection type: site unspecified Hematuria presence: without hematuria Qualified Code(s): N39.0 - Urinary tract infection, site not specified Category: Medical Code(s): N39.0 - Urinary tract infection, site not specified (2) Altered mental status Status: Acute Qualifiers: Altered mental status type: unspecified Qualified Code(s): R41.82 - Altered mental status, unspecified Category: Medical Code(s): R41.82 - Altered mental status, unspecified (3) Acute on chronic anemia Status: Acute Category: Medical Code(s): D64.9 - Anemia, unspecified (4) KATHYA (acute kidney injury) Status: Acute Category: Medical Code(s): N17.9 - Acute kidney failure, unspecified (5) COPD (chronic obstructive pulmonary disease) Status: Chronic Qualifiers: COPD type: unspecified COPD Qualified Code(s): J44.9 - Chronic obstructive pulmonary disease, unspecified Category: Medical Code(s): J44.9 - Chronic obstructive pulmonary disease, unspecified (6) Renal insufficiency Status: Chronic Category: Medical Code(s): N28.9 - Disorder of kidney and ureter, unspecified (7) Coronary artery disease Status: Chronic Qualifiers: Coronary Disease-Associated Artery/Lesi
[2020-12-04 09:22] LABS: Procalcitonin 0.051 ng/mL (0.0-2.0)
--- NOTE | 2020-12-04 11:58 | HMH.PTEV ---
Physical Therapy Evaluation Rehab PT IP Evaluation Start: 12/04/20 08:42 Freq: ONCE Status: Active Protocol: Document 12/04/20 11:53 PHORFRANCK (Rec: 12/04/20 11:58 PHORNE [id number]) Subjective/History History History 85 yowm adm to [facility] with AMS and UTI. He is unable to give history at this time, but [place] [facility] [place] Subjective Subjective Pt c/o pain with LE ROM. Presents with B knee flexion contracture and B hip ADD contracture. Rehab PT IP Eval Objective Appearance Patient Behavior Confused Patient Orientation Person Difficulty following instructions moderate Speech Pattern Garbled Ambulation Patient Able to Ambulate No Balance Ability to Arise Able, uses arms to help Sitting Balance Steady, safe Dynamic Sitting Balance Ability Fair Transfers Bed Transfer Ability Minimal x 1 (25% assist) Chair Transfer Ability Total/Dependent (100%) ROM LLE PT ROM Status ABN Abnormal ROM Comment 90 deg knee flex contracture RLE PT ROM Status ABN Abnormal ROM Comment 90 deg knee flex contracture Rehab PT IP prob,goals,plan Problems Date of Evaluation: 12/04/20 PT IP Problems Bed Mobility,Transfers Rehab Potential Rehab Potential Fair Plan PT Intervention Plan Bed Mobility,Transfers, Therapeutic Exercise PT Plan Frequency BID Duration LOS Discharge Goals Bed Transfer Ability Contact Guard/Hand Hold Discharge Plan PT Discharge Plan Pt knee contractures B appear chronic in nature and prevent any attemots at standing at this time. If pt is to transfer to chair it will require daniel lift for pt/ caregiver safety. He appears to be at baseline for mobility , but is a very poor historian . G -code Required No PHYSICIAN CERTIFICATION: I certify the specified therapy services for Juan Pablo Bejarano are required, authorized, and reviewed every 30 days.
--- NOTE | 2020-12-04 12:51 | SW/DCPLANNER ---
PATIENT IS CLOSE TO DISCHARGING BACK TO [facility] AND COULD POSSIBLY DISCHARGE THERE IN THE AM...(SAT) I HAVE NOTIFIED [facility] CLAUD[facility] OF HIM RETURNING THERE SAT PENDING NO SETBACKS.. PATIENT IS ON A 14 DAY BEDHOLD....
--- NOTE | 2020-12-04 14:12 | DIET.NUTRFU ---
Pt is recorded to have had 0% PO intake since breakfast on Saturday 12/02, for which he only had a few bites. He has been intermittently agitated and with AMS, which is very different from his baseline per PCP. However, today he presents as hungry and motivated to eat. Pt states he is hungry and easily opens his mouth for food, takes big gulps of ensure. He was able to eat about 25% and most of his ensure. Continuing to send supplements TID. Pt remains with AMS but will eat with encouragement, he requires total assistance feeding all meals. Please encourage/cue at mealtimes prioritizing supplements and protein foods as well as offer snacks/supplements t/o the day.
[2020-12-04 15:53] VITALS: BP 138/62; PULSE 73; RESP 17; TEMP 36.8; O2SAT 99
--- NOTE | 2020-12-04 16:00 | INFXCTL.NOTE ---
Pt has been resistive to care this entire shift. PIV was pulled out by pt, new 20g PIV placed in MAI. Pt did not cooperate w/ PT today. Pt refused to get OOB and up to chair multiple times this shift. Pt has been an assist feed this shift, and has had a poor appetite. Bed alarm remains on for safety. No other acute changes or complaints at this time. Will continue to monitor.
[2020-12-04 20:00] VITALS: BP 143/59; PULSE 79; RESP 20; TEMP 36.7; O2SAT 99
--- NOTE | 2020-12-04 20:44 | PC.NURSE ---
patient has taken IV out of his right upper arm & tore the IV tubing into and fluids leaked on bed.
--- NOTE | 2020-12-04 22:34 | PC.NURSE ---
received call from Bean (Nurse Jean) checking status on patient & possible discharge tomorrow. Nurse has requested that if patient returns with antibiotic therapy if could be administered IM that would better due to patient will not keep an IV in place.
[2020-12-05] VITALS (7 sets, daily range): BP systolic 128–160; BP diastolic 69–80; PULSE 69–79; RESP 16–18; TEMP 36.5–36.7; O2SAT 96–98; BMI 22.7
[2020-12-05 07:01] LABS: Basophils # 0.1 K/mm3 (0-0.2); Basophils % 0.8 % (0.1-2.0); Eosinophils # 0.5 K/mm3 (0.0-0.4); Eosinophils % 3.7 % (0.1-12.0); Hematocrit 29.5 % (42.0-52.0); Lymphocytes # 2.6 K/mm3 (0.7-4.5); Lymphocytes % 19.2 % (10-50); Mean Corpuscular HGB Conc 33.8 g/dL (31.8-35.4); Mean Corpuscular Volume 97.7 fl (80-94); Mean Platelet Volume 8.2 fl (7.4-10.4); Monocytes # 0.7 K/mm3 (0.1-1.0); Monocytes % 5.6 % (1.7-9.3); Neutrophils # 9.4 K/mm3 (1.8-7.8); Neutrophils % 70.7 % (37.0-80.0); Platelet Count 320 K/mm3 (142-424); Red Blood Count 3.02 M/mm3 (4.60-6.20); Red Cell Distribution Width 14.3 % (11.5-17.5); White Blood Count 13.3 K/mm3 (4.8-10.8)
[2020-12-05 07:10] LABS: Anion Gap 11.6 mEq/L (5-15); Blood Urea Nitrogen 22 mg/dl (9-20); Calcium 9.2 mg/dl (8.4-10.2); Carbon Dioxide 25 mmol/L (22.0-30.0); Chloride 113 mmol/L (98-107); Creatinine Clearance Estimated 46 mL/min (50-200); Estimated Glomerular Filt Rate 63 ml/min (>60); GFR (African American) 77 ML/MIN (>60); Glucose 99 mg/dl (74-100); Potassium 3.6 mmoL/L (3.5-5.1); Sodium 146 mmol/L (136-145)
--- NOTE | 2020-12-05 09:12 | HMH.ACPN2 ---
Internal Medicine - PN: Subj *Date: 12/06/20 *Time: 07:27 Interval history: more alert and eating and labs ok Exam Vital signs and Labs for Last 24 Hours: Temp Pulse Resp BP Pulse Ox 97.9 F 70 18 128/71 98 12/05/20 07:40 12/05/20 07:40 12/05/20 07:40 12/05/20 07:40 12/05/20 07:40 Laboratory Results - last 24 hr 12/04/20 06:10: Procalcitonin 0.051 12/05/20 06:24: WBC 13.3 H, RBC 3.02 L, Hgb 10.0 L, Hct 29.5 L, MCV 97.7 H, MCH 33.0 H, MCHC 33.8, RDW 14.3, Plt Count 320, MPV 8.2, Neut % (Auto) 70.7, Lymph % (Auto) 19.2, [place] % (Auto) 5.6, Eos % (Auto) 3.7, Baso % (Auto) 0.8, Neut # (Auto) 9.4 H, Lymph # (Auto) 2.6, [place] # (Auto) 0.7, Eos # (Auto) 0.5 H, Baso # (Auto) 0.1 12/05/20 06:24: Sodium 146 H, Potassium 3.6, Chloride 113 H, Carbon Dioxide 25, Anion Gap 11.6, BUN 22 H, Creatinine 1.10, Estimated Creat Clear 46, Estimated GFR 63, Est GFR ( Amer) 77, Glucose 99, Calcium 9.2 I & O for Last 24 hours: Intake & Output 12/02/20 12/03/20 12/04/20 12/05/20 11:59 11:59 11:59 11:59 Intake Total 1448 / 1448 635 / 635 120 / 120 360 / 360 Output Total Balance 1447 / 1447 634 / 634 120 / 120 360 / 360 Weight 161 lb 1 oz 146 lb 8 oz 150 lb Microbiology Reports for the Last 24 Hours: Microbiology 12/01/20 00:20 Urine,Catheterized Urine Culture - Final Strep agalactiae - (group b) - Constitutional no acute distress - *Routine HEENT Exam Head: Present: normocephalic Eye: Present: EOMI, PERRL ENT: Present: mucous membranes dry - *Routine Neck Exam Absent: JVD - *Routine Respiratory Exam Present: decreased breath sounds - *Routine Cardiovascular Exam Present: RRR, murmur - *Routine Abdominal Exam Present: soft - *Routine Extremities Exam Absent: calf tenderness - *Routine Skin Exam Present: intact - *Routine Neurological Exam Present: alert. Absent: motor deficit - Routine Psychiatric Exam Present: cooperative Assessment and Plan (1) Urinary tract infection Status: Acute Qualifiers: Urinary tract infection type: site unspecified Hematuria presence: without hematuria Qualified Code(s): N39.0 - Urinary tract infection, site not specified Category: Medical Code(s): N39.0 - Urinary tract infection, site not specified (2) Altered mental status Status: Acute Qualifiers: Altered mental status type: unspecified Qualified Code(s): R41.82 - Altered mental status, unspecified Category: Medical Code(s): R41.82 - Altered mental status, unspecified (3) Acute on chronic anemia Status: Acute Category: Medical Code(s): D64.9 - Anemia, unspecified (4) KATHYA (acute kidney injury) Status: Acute Category: Medical Code(s): N17.9 - Acute kidney failure, unspecified (5) COPD (chronic obstructive pulmonary disease) Status: Chronic Qualifiers: COPD type: unspecified COPD Qualified Code(s): J44.9 - Chronic obstructive pulmonary disease, unspecified Category: Medical Code(s): J44.9 - Chronic obstructive pulmonary disease, unspecified (6) Renal insufficiency Status: Chronic Category: Medical Code(s): N28.9 - Disorder of kidney and ureter, unspecified (7) Coronary artery disease Status: Chronic Qualifiers: Coronary Disease-Associated Artery/Lesion type: [place] artery [place] vs. transplanted heart: [place] heart Associated angina: without angina Qualified Code(s): I25.10 - Atherosclerotic heart disease of [place] coronary artery without angina pectoris Category: Medical Code(s): I25.10 - Atherosclerotic heart disease of [place] coronary artery without angina pectoris (8) Streptococcus agalactiae infection Status: Acute Category: Medical Code(s): A49.1 - Streptococcal infection, unspecified site
--- NOTE | 2020-12-05 16:21 | PC.NURSE ---
Pt has been more cooperative this shift, but has refused to get out of bed. When suggesting to get up to the chair, pt gets agitated and resists help from staff. Pt has been incontinent of urine this shift. PIV in LAC remains patent and intact. No other acute changes or complaints at this time. Will continue to monitor
--- NOTE | 2020-12-05 20:56 | PC.NURSE ---
placed patient's wedding ring in small baggie with name and and locked in medication drawer.
[2020-12-06] VITALS: BP 134/69; PULSE 74; RESP 18; TEMP 36.8; O2SAT 97
--- NOTE | 2020-12-06 01:50 | PC.NURSE ---
Patient seems more alert this shift; took HS medications; requested to use bathroom and used urinal appropriately with assistance. Will continue to monitor.
[2020-12-06 03:54] VITALS: BP 131/71; PULSE 69; RESP 17; TEMP 36.6; O2SAT 97
[2020-12-06 04:47] VITALS: BMI 23.1
[2020-12-06 06:52] LABS: Basophils # 0.1 K/mm3 (0-0.2); Basophils % 0.6 % (0.1-2.0); Eosinophils # 0.8 K/mm3 (0.0-0.4); Eosinophils % 4.7 % (0.1-12.0); Hematocrit 30.6 % (42.0-52.0); Hemoglobin 10.2 g/dL (14.1-18.0); Lymphocytes # 2.8 K/mm3 (0.7-4.5); Lymphocytes % 17.2 % (10-50); Mean Corpuscular HGB Conc 33.4 g/dL (31.8-35.4); Mean Corpuscular Hemoglobin 32.6 pg (27.0-31.2); Mean Corpuscular Volume 97.6 fl (80-94); Mean Platelet Volume 7.7 fl (7.4-10.4); Monocytes # 0.8 K/mm3 (0.1-1.0); Monocytes % 4.9 % (1.7-9.3); Neutrophils # 11.7 K/mm3 (1.8-7.8); Neutrophils % 72.6 % (37.0-80.0); Platelet Count 341 K/mm3 (142-424); Red Blood Count 3.14 M/mm3 (4.60-6.20); White Blood Count 16.1 K/mm3 (4.8-10.8)
[2020-12-06 06:58] LABS: MANUAL DIFFERENTIAL MANUAL DIFFERENTIAL (MANUAL DIFF)
[2020-12-06 07:00] LABS: Anion Gap 12.3 mEq/L (5-15); Blood Urea Nitrogen 23 mg/dl (9-20); Calcium 9.2 mg/dl (8.4-10.2); Carbon Dioxide 25 mmol/L (22.0-30.0); Chloride 109 mmol/L (98-107); Creatinine Clearance Estimated 47 mL/min (50-200); Estimated Glomerular Filt Rate 63 ml/min (>60); GFR (African American) 77 ML/MIN (>60); Glucose 100 mg/dl (74-100); Potassium 3.3 mmoL/L (3.5-5.1); Sodium 143 mmol/L (136-145)
[2020-12-06 07:25] VITALS: BP 141/72; PULSE 70; RESP 17; TEMP 37.5; O2SAT 100
[2020-12-06 08:05] LABS: Eosinophils % 3 % (0-3); Lymphocytes % 22 % (10-50); Monocytes % 6 % (2-9); Neutrophils % 69 % (42-76); Platelet Estimate Normal; RBC Morphology Normal; Total Cells Counted 100
--- NOTE | 2020-12-06 08:52 | HMH.ACPN2 ---
Internal Medicine - PN: Subj *Date: 12/07/20 *Time: 06:28 Interval history: doing ok - more alert - wbc elevated - Exam Vital signs and Labs for Last 24 Hours: Temp Pulse Resp BP Pulse Ox 99.5 F 70 17 141/72 H 100 12/06/20 07:25 12/06/20 07:25 12/06/20 07:25 12/06/20 07:25 12/06/20 07:25 Laboratory Results - last 24 hr 12/06/20 06:28: WBC 16.1 H, RBC 3.14 L, Hgb 10.2 L, Hct 30.6 L, MCV 97.6 H, MCH 32.6 H, MCHC 33.4, RDW 14.0, Plt Count 341, MPV 7.7, Neut % (Auto) 72.6, Lymph % (Auto) 17.2, [place] % (Auto) 4.9, Eos % (Auto) 4.7, Baso % (Auto) 0.6, Neut # (Auto) 11.7 H, Lymph # (Auto) 2.8, [place] # (Auto) 0.8, Eos # (Auto) 0.8 H, Baso # (Auto) 0.1, Total Counted 100, Neutrophils % (Manual) 69, Lymphocytes % (Manual) 22, Monocytes % (Manual) 6, Eosinophils % (Manual) 3, Platelet Estimate Normal, RBC Morphology Normal 12/06/20 06:28: Sodium 143, Potassium 3.3 L, Chloride 109 H, Carbon Dioxide 25, Anion Gap 12.3, BUN 23 H, Creatinine 1.10, Estimated Creat Clear 47, Estimated GFR 63, Est GFR ( Amer) 77, Glucose 100, Calcium 9.2 I & O for Last 24 hours: Intake & Output 12/03/20 12/04/20 12/05/20 12/06/20 11:59 11:59 11:59 11:59 Intake Total 635 / 635 120 / 120 360 / 360 480 / 480 Output Total Balance 634 / 634 120 / 120 360 / 360 480 / 480 Weight 161 lb 1 oz 146 lb 8 oz 150 lb 153 lb Microbiology Reports for the Last 24 Hours: Microbiology 12/01/20 01:30 Blood Blood Culture - Final NO GROWTH AFTER 5 DAYS 12/01/20 01:30 Blood Blood Culture - Final NO GROWTH AFTER 5 DAYS - Constitutional no acute distress - *Routine HEENT Exam Head: Present: normocephalic Eye: Present: EOMI, PERRL ENT: Present: mucous membranes dry - *Routine Neck Exam Present: supple. Absent: JVD - *Routine Respiratory Exam Present: decreased breath sounds - *Routine Cardiovascular Exam Present: RRR - *Routine Abdominal Exam Present: soft - *Routine Extremities Exam Absent: calf tenderness - *Routine Skin Exam Present: intact - *Routine Neurological Exam Present: alert - Routine Psychiatric Exam Present: normal affect Assessment and Plan (1) Urinary tract infection Status: Acute Qualifiers: Urinary tract infection type: site unspecified Hematuria presence: without hematuria Qualified Code(s): N39.0 - Urinary tract infection, site not specified Category: Medical Code(s): N39.0 - Urinary tract infection, site not specified (2) Altered mental status Status: Acute Qualifiers: Altered mental status type: unspecified Qualified Code(s): R41.82 - Altered mental status, unspecified Category: Medical Code(s): R41.82 - Altered mental status, unspecified (3) Acute on chronic anemia Status: Acute Category: Medical Code(s): D64.9 - Anemia, unspecified (4) KATHYA (acute kidney injury) Status: Acute Category: Medical Code(s): N17.9 - Acute kidney failure, unspecified (5) COPD (chronic obstructive pulmonary disease) Status: Chronic Qualifiers: COPD type: unspecified COPD Qualified Code(s): J44.9 - Chronic obstructive pulmonary disease, unspecified Category: Medical Code(s): J44.9 - Chronic obstructive pulmonary disease, unspecified (6) Renal insufficiency Status: Chronic Category: Medical Code(s): N28.9 - Disorder of kidney and ureter, unspecified (7) Coronary artery disease Status: Chronic Qualifiers: Coronary Disease-Associated Artery/Lesion type: [place] artery [place] vs. transplanted heart: [place] heart Associated angina: without angina Qualified Code(s): I25.10 - Atherosclerotic heart disease of [place] coronary artery without angina pectoris Category: Medical Code(s): I25.10 - Atherosclerotic heart disease of [place] coronary artery without angina pectoris (8) Streptococcus agalactiae infection Status: Acute Category: Medical Code(s): A
[2020-12-06 11:36] VITALS: BP 142/59; PULSE 70; RESP 19; TEMP 36.6; O2SAT 98
[2020-12-06 15:33] VITALS: BP 123/49; PULSE 69; RESP 18; TEMP 37.2; O2SAT 99
--- NOTE | 2020-12-06 16:14 | PC.NURSE ---
PT IS ORIENTED TO PERSON. HE IS VERY HARD OF HEARING. HAS BEEN VERY VOCAL THIS SHIFT. HE DENIES PAIN. BED ALARM HAS REMAINED IN PLACE R/T POOR SAFETY AWARENESS. BED IN LOWEST POSITION. NEW IV 20# TO RAC WITH NS@100 ORDERED. VITAL SIGNS REMAIN STABLE. BATH AND LINEN CHANGE THIS SHIFT.
[2020-12-06 20:00] VITALS: BP 158/67; PULSE 69; RESP 18; TEMP 36.9; O2SAT 98; O2SAT 99
[2020-12-07 04:55] VITALS: BP 137/69; PULSE 80; RESP 18; TEMP 36.8; O2SAT 97
[2020-12-07 05:00] VITALS: BMI 23.1
--- NOTE | 2020-12-07 05:59 | PC.NURSE ---
patient awake most of this shift; refused fluids and attempted to pull IV out. Bed at lowest level for safety, call light within reach, shows no s/s of acute distress noted. Will continue to monitor.
[2020-12-07 06:27] LABS: Anion Gap 14.2 mEq/L (5-15); Blood Urea Nitrogen 20 mg/dl (9-20); Calcium 9.2 mg/dl (8.4-10.2); Carbon Dioxide 25 mmol/L (22.0-30.0); Chloride 106 mmol/L (98-107); Creatinine Clearance Estimated 52 mL/min (50-200); Estimated Glomerular Filt Rate 71 ml/min (>60); GFR (African American) 86 ML/MIN (>60); Glucose 124 mg/dl (74-100); Potassium 3.2 mmoL/L (3.5-5.1); Sodium 142 mmol/L (136-145)
[2020-12-07 06:28] LABS: Basophils # 0.1 K/mm3 (0-0.2); Basophils % 0.4 % (0.1-2.0); Eosinophils # 0.3 K/mm3 (0.0-0.4); Hematocrit 31.2 % (42.0-52.0); Hemoglobin 10.2 g/dL (14.1-18.0); Lymphocytes # 2.5 K/mm3 (0.7-4.5); Lymphocytes % 15.2 % (10-50); Mean Corpuscular HGB Conc 32.8 g/dL (31.8-35.4); Mean Corpuscular Hemoglobin 31.8 pg (27.0-31.2); Mean Platelet Volume 7.8 fl (7.4-10.4); Monocytes # 0.9 K/mm3 (0.1-1.0); Monocytes % 5.2 % (1.7-9.3); Neutrophils # 12.6 K/mm3 (1.8-7.8); Neutrophils % 77.2 % (37.0-80.0); Platelet Count 353 K/mm3 (142-424); Red Blood Count 3.21 M/mm3 (4.60-6.20); Red Cell Distribution Width 13.6 % (11.5-17.5); White Blood Count 16.3 K/mm3 (4.8-10.8)
[2020-12-07 06:37] LABS: MANUAL DIFFERENTIAL MANUAL DIFFERENTIAL (MANUAL DIFF)
[2020-12-07 08:00] VITALS: BP 127/67; PULSE 92; RESP 24; TEMP 36.7; O2SAT 98
[2020-12-07 08:38] LABS: Eosinophils % 2 % (0-3); Hypochromasia 2+; Lymphocytes % 10 % (10-50); Monocytes % 7 % (2-9); Neutrophils % 81 % (42-76); Nucleated Red Blood Cells 1; Platelet Estimate Normal; Total Cells Counted 100
[2020-12-07 08:39] LABS: Microcytosis 1+
--- NOTE | 2020-12-07 09:13 | HMH.DCSUM ---
General - General Admission date:: 12/01/20 Discharge date: 12/07/20 HPI HPI: 85-year-old male patient presented to the emergency department via squad from halfway, halfway nurse reports patient in hallway confused with altered mental status and sent to ED for evaluation. No nausea/vomiting/diarrhea reported but nurse reports decreased p.o. intake Lab work in the emergency department white blood cell count 16.1, H/H 10.0/30.7 Sodium 142, potassium 5.9, BUN 46, creatinine 3.2 UA revealed leukocytes 3+ SARS-COV-2 - Influenza a and B both negative 11/30/20 cxr: FINDINGS: Lungs: Interstitial pneumonia in the right lower lobe and left lung base. Underlying emphysema. Pleural spaces: Unremarkable. No pleural effusion. No pneumothorax. Heart/Mediastinum: Unremarkable. No cardiomegaly. Bones/joints: Unremarkable. IMPRESSION: Bilateral interstitial pneumonia. Electronically signed by Nimo Mclean, 85-year-old male patient laying in bed resting quietly with eyes closed, does awaken to verbal stimuli. Patient did receive antianxiety medication during night for anxious/restlessness. No apparent distress. Hospital Course Hospital Course: Laboratory Tests 11/30/20 11/30/20 12/01/20 22:56 22:56 00:20 WBC 16.1 H RBC 3.06 L Hgb 10.0 L Hct 30.7 L MCV 100.6 H MCH 32.7 H MCHC 32.5 RDW 13.4 Plt Count 312 MPV 7.9 Neut % (Auto) 72.9 Lymph % (Auto) 16.1 [place] % (Auto) 5.0 Eos % (Auto) 5.5 Baso % (Auto) 0.5 Neut # (Auto) 11.7 H Lymph # (Auto) 2.6 [place] # (Auto) 0.8 Eos # (Auto) 0.9 H Baso # (Auto) 0.1 Total Counted 100 Neutrophils % (Manual) 72 Lymphocytes % (Manual) 20 Monocytes % (Manual) 3 Eosinophils % (Manual) 5 H Nucleated RBCs Platelet Estimate Normal RBC Morphology Hypochromasia Microcytosis Macrocytosis 1+ Sodium 142 Potassium 5.9 H Chloride 111 H Carbon Dioxide 19 L Anion Gap 17.9 H BUN 46 H D Creatinine 3.20 H D Estimated Creat Clear 15 Estimated GFR 19 L* Est GFR ( Amer) 22 L D Glucose 176 H Lactate Calcium 9.3 Total Bilirubin 0.4 AST 114 H D ALT 35 D Alkaline Phosphatase 79 Total Protein 7.4 Albumin 4.0 Globulin 3.4 H Albumin/Globulin Ratio 1.2 Procalcitonin Urine Color Yellow Urine Appearance Slightly cloudy Urine pH 6.5 Ur Specific [place] 1.015 Urine Protein 1+ Urine Glucose (UA) Negative Urine Ketones Negative Urine Blood 3+ Urine Nitrate Negative Urine Bilirubin Negative Urine Urobilinogen 0.2 Ur Leukocyte Esterase 3+ A Urine RBC 5-10 Urine WBC 5-10 Amorphous Sediment 1+ Urine Bacteria 1+ Urine Mucus 1+ SARS-CoV-2 (PCR) Influenza A Untype (PCR) Influenza Type B (PCR) 12/01/20 12/01/20 12/01/20 01:05 01:30 06:00 WBC RBC Hgb Hct MCV MCH MCHC RDW Plt Count MPV Neut % (Auto) Lymph % (Auto) [place] % (Auto) Eos % (Auto) Baso % (Auto) Neut # (Auto) Lymph # (Auto) [place] # (Auto) Eos # (Auto) Baso # (Auto) Total Counted Neutrophils % (Manual) Lymphocytes % (Manual) Monocytes % (Manual) Eosinophils % (Manual) Nucleated RBCs Platelet Estimate RBC Morphology Hypochromasia Microcytosis Macrocytosis Sodium 144 Potassium 4.9 Chloride 116 H Carbon Dioxide 20 L Anion Gap 12.9 BUN 44 H Creatinine 2.60 H Estimated Creat Clear 21 Estimated GFR 24 L Est GFR ( Amer) 28 L D Glucose 99 D Lactate 1.1 Calcium 8.8 Total Bilirubin AST ALT Alkaline Phosphatase Total Protein Albumin Globulin Albumin/Globulin Ratio Procalcitonin Urine Color Urine Appearance Urine pH Ur Specific [place] Urine Protein Urine Glucose (UA) U
== END 2020-12-07 10:55 | DRG 690 ==
LOC: ER 22:53 → 2ND 12-01 01:11
PROVIDERS: Nurse Practitioner Family; Admitting Provider Emergency Medicine; Emergency Provider Emergency Medicine; PCP Emergency Medicine; Visit Provider Emergency Medicine
DX: N39.0 Urinary tract infection, site not specified (principal); N17.9 Acute kidney failure, unspecified; D64.9 Anemia, unspecified; J44.9 Chronic obstructive pulmonary disease, unspecified; I25.10 Atherosclerotic heart disease of native coronary artery without angina pectoris; Z79.899 Other long term (current) drug therapy; Z20.822 Contact with and (suspected) exposure to COVID-19; Z88.8 Allergy status to other drugs, medicaments and biological substances; B95.1 Streptococcus, group B, as the cause of diseases classified elsewhere
CPT/HCPCS: 36415; 71045; 72170; 80048; 80053; 81001; 83605; 84145; 85007; 85025; 87040; 87086; 87088; 87186; 96365; 97530; 99291; J1335; U0003

== ENCOUNTER 2020-12-12 06:31 | Inpatient (IN) | payer MEDICARE, MEDICAID, SELFPAY ==
[2020-12-12] VITALS (15 sets, daily range): BP systolic 74–135; BP diastolic 32–88; PULSE 47–87; RESP 14–23; TEMP 36.1–36.8; O2SAT 82–99; BMI 20.5; BMI 22.4
--- NOTE | 2020-12-12 06:38 | ECG_ITS ---
APPROVED REPORT Exam: Resting ECG HR:75 bpm ECG Measurements Heart Rate 75 AXES QRSd 130 QRS 69 QT 422 T 44 QTc 471 Conclusion Wide QRS rhythm Right bundle branch block T wave abnormality, consider lateral ischemia Abnormal ECG Electronically signed by : Juice Mace, 12/13/2020 13:49:52
[2020-12-12 07:10] LABS: Microscopic, Urine URINE MICROSCOPIC (MICROSCOPIC)
[2020-12-12 07:14] LABS: Appearance,Urine CLEAR (Clear); Bilirubin,Urine Negative (Negative); Blood, Urine 1+ (Negative); Color,Urine YELLOW (Yellow); Glucose,Urine (UA) Negative (Negative); Ketones,Urine TRACE (Negative); Leukocyte Esterase,Urine TRACE (Negative); Nitrate,Urine Negative (Negative); Protein,Urine 1+ (Negative); Specific Gravity, Urine >= 1.030 (1.005-1.030); Urobilinogen,Urine 0.2 EU/dl (0.2)
[2020-12-12 07:14] LABS: Basophils # 0.1 K/mm3 (0-0.2); Basophils % 0.4 % (0.1-2.0); Eosinophils # 0.3 K/mm3 (0.0-0.4); Eosinophils % 1.4 % (0.1-12.0); Hematocrit 30.5 % (42.0-52.0); Hemoglobin 9.6 g/dL (14.1-18.0); Lymphocytes # 3.5 K/mm3 (0.7-4.5); Lymphocytes % 17.4 % (10-50); Mean Corpuscular HGB Conc 31.5 g/dL (31.8-35.4); Mean Corpuscular Hemoglobin 32.7 pg (27.0-31.2); Mean Corpuscular Volume 103.5 fl (80-94); Mean Platelet Volume 8.9 fl (7.4-10.4); Monocytes # 0.8 K/mm3 (0.1-1.0); Monocytes % 4.2 % (1.7-9.3); Neutrophils # 15.1 K/mm3 (1.8-7.8); Neutrophils % 76.5 % (37.0-80.0); Platelet Count 395 K/mm3 (142-424); Red Blood Count 2.94 M/mm3 (4.60-6.20); Red Cell Distribution Width 14.4 % (11.5-17.5); White Blood Count 19.7 K/mm3 (4.8-10.8)
[2020-12-12 07:18] LABS: MANUAL DIFFERENTIAL MANUAL DIFFERENTIAL (MANUAL DIFF)
[2020-12-12 07:23] LABS: Alanine Aminotransferase 43 U/L (12-78); Albumin/Globulin Ratio 1.2 (1.1-1.8); Alkaline Phosphatase 72 U/L (38-126); Anion Gap 25.1 mEq/L (5-15); Aspartate Amino Transferase 78 U/L (17-59); Bilirubin,Total 0.5 mg/dl (0.2-1.3); Blood Urea Nitrogen 65 mg/dl (9-20); Calcium 9.3 mg/dl (8.4-10.2); Carbon Dioxide 21 mmol/L (22.0-30.0); Chloride 108 mmol/L (98-107); Creatinine Clearance Estimated 5 mL/min (50-200); Estimated Glomerular Filt Rate 5 ml/min (>60); GFR (African American) 6 ML/MIN (>60); Globulin 3.3 g/dL (1.3-3.2); Glucose 106 mg/dl (74-100); Potassium 5.1 mmoL/L (3.5-5.1); Sodium 149 mmol/L (136-145); Total Protein,Serum 7.3 g/dl (6.3-8.2)
--- NOTE | 2020-12-12 07:25 | PC.NURSE ---
critical lab values given to SAHRA Humphrey and Dr Chi at this time.
[2020-12-12 07:27] LABS: Lactic Acid 7.2 mmol/L (0.7-2.1)
--- NOTE | 2020-12-12 07:27 | PC.NURSE ---
Critical lab values called to Linda Richardson RN. Dr Chi aware as well.
[2020-12-12 07:28] LABS: C-Reactive Protein 61.4 mg/L (0-4)
--- NOTE | 2020-12-12 07:29 | PC.NURSE ---
LAB NOTIFIED CATALINA BOCANEGRA OF CRITICAL CREATININE OF 9.60. NOTIFIED
--- NOTE | 2020-12-12 07:30 | PC.NURSE ---
Dr. Chi notified of critical Lactic
[2020-12-12 07:31] LABS: Squamous Epithelial Cell,Urine Occasional #/hpf (0-5)
[2020-12-12 07:42] LABS: Procalcitonin 0.328 ng/mL (0.0-2.0)
[2020-12-12 07:49] LABS: Coronavirus 19, PCR Not Detected (NotDetected); Influenza A, PCR Not Detected (NotDetected); Influenza B, PCR Not Detected (NotDetected)
[2020-12-12 07:53] LABS: Erythrocyte Sedimentation Rate > 140 mm/hr (0-20)
[2020-12-12 07:57] LABS: Hypochromasia 1+; Lymphocytes % 18 % (10-50); Monocytes % 5 % (2-9); Neutrophils % 77 % (42-76); Total Cells Counted 100
[2020-12-12 07:58] LABS: Microcytosis 1+; Platelet Estimate Normal
--- NOTE | 2020-12-12 08:02 | HMH.EDGENADL ---
ED Disposition Clinical Impression: Altered mental status Qualifiers: Altered mental status type: disorientation Qualified Code(s): R41.0 - Disorientation, unspecified Hypotension Qualifiers: Hypotension type: unspecified hypotension type Qualified Code(s): I95.9 - Hypotension, unspecified Disposition: Admitted As Inpatient Condition on Discharge: Serious - Critical Care Critical Care Time: Yes Attestation: On 12/12/20, the high probability of a clinically significant, sudden or life threatening deterioration of the following system(s) required my full and direct attention, intervention and personal management. The time I documented below is in addition to time spent performing reported procedures but includes the following listed in this critical care notation. Total Critical Care Time: 35 Vital system(s) involved:: Circulatory Failure My critical care processes included: Assessment & monitoring of V/S, Initial and Re-exams, Data Review/Interpretation, Coordinating Care, Medication Orders and management, Documentation Medical Decision Making - Medical Records Medical records reviewed: Yes: I reviewed the patient's medical records. MR Comment: Reviewed discharge summary from admission 12/01/2020 through 12/07/2020. Treated for urinary tract infection with Rocephin and also 1 dose of Invanz. Cultures reviewed. He completed a full course of antibiotics in the hospital and therefore was not discharged on antibiotics. - John Inquiry Pt receiving controlled substance: No Vital Signs: 12/12/20 06:31 12/12/20 07:28 12/12/20 07:30 Temperature 98.0 F Temperature Source Rectal Pulse Rate 84 84 Pulse Rate [Apical] 47 L Respiratory Rate 19 15 23 Blood Pressure 117/88 103/37 L Blood Pressure [Right Arm] 74/32 L Blood Pressure Mean Blood Pressure Mean [Right Arm] 46 Blood Pressure Source [Right Arm] Automatic Cuff 02 Sat by Pulse Oximetry 82 L 99 99 Oxygen Delivery Method Room Air 12/12/20 07:48 12/12/20 08:00 12/12/20 08:15 Temperature Temperature Source Pulse Rate 84 83 76 Pulse Rate [Apical] Respiratory Rate 16 20 15 Blood Pressure 109/49 L 107/54 L 106/45 L Blood Pressure [Right Arm] Blood Pressure Mean 67 Blood Pressure Mean [Right Arm] Blood Pressure Source [Right Arm] 02 Sat by Pulse Oximetry 97 97 Oxygen Delivery Method 12/12/20 09:11 12/12/20 09:30 12/12/20 10:15 Temperature Temperature Source Pulse Rate Pulse Rate [Apical] Respiratory Rate 16 14 16 Blood Pressure 103/47 L 101/67 L 90/51 L Blood Pressure [Right Arm] Blood Pressure Mean 65 51 Blood Pressure Mean [Right Arm] Blood Pressure Source [Right Arm] 02 Sat by Pulse Oximetry Oxygen Delivery Method 12/12/20 10:46 12/12/20 10:56 12/12/20 12:00 Temperature 98.2 F Temperature Source Oral Pulse Rate 73 Pulse Rate [Apical] Respiratory Rate 18 16 18 Blood Pressure 93/47 L 92/59 L 98/62 L Blood Pressure [Right Arm] Blood Pressure Mean 53 65 Blood Pressure Mean [Right Arm] Blood Pressure Source [Right Arm] 02 Sat by Pulse Oximetry 97 98 Oxygen Delivery Method Room Air Room Air - Lab Data Lab Results 12/12/20 06:45: WBC 19.7 H, RBC 2.94 L, Hgb 9.6 L, Hct 30.5 L, MCV 103.5 H, MCH 32.7 H, MCHC 31.5 L, RDW 14.4, Plt Count 395, MPV 8.9, Neut % (Auto) 76.5, Lymph % (Auto) 17.4, [place] % (Auto) 4.2, Eos % (Auto) 1.4, Baso % (Auto) 0.4, Neut # (Auto) 15.1 H, Lymph # (Auto) 3.5, [place] # (Auto) 0.8, Eos # (Auto) 0.3, Baso # (Auto) 0.1, Total Counted 100, Neutrophils % (Manual) 77 H, Lymphocytes % (Manual) 18, Monocytes % (Manual) 5, Platelet Estimate Normal, RBC Morphology Not Reportable, Hypochromasia 1+, Microcytosis 1+, ESR > 140 H 12/12/20 06:45: Sodium 149 H, Potassium 5.1, Chloride 108 H, Carbon Dioxide 21 L, Anion Gap 25.1 H, BUN 65 H, Creatinine 9.60 H, Estimated Creat Clear 5, Estimated GFR 5 L*, Est GFR ( Amer) 6 L*, Glucose 106 H, Calcium 9.
--- NOTE | 2020-12-12 08:04 | XR_ITS ---
PROCEDURE INFORMATION: Exam: XR Chest Exam date and time: 12/12/2020 8:04 AM Age: 85 years old Clinical indication: Other: Low o2 sat TECHNIQUE: Imaging protocol: XR of the chest. Views: 1 view. COMPARISON: CR XR CHEST PORTABLE 12/04/2020 9:00 AM FINDINGS: Lungs: Stable interstitial prominence. No focal consolidation. Pleural spaces: Unremarkable. No pleural effusion. No pneumothorax. Heart/Mediastinum: Unremarkable. No cardiomegaly. Bones/joints: Unremarkable. IMPRESSION: Stable interstitial prominence. No focal consolidation.
--- NOTE | 2020-12-12 08:24 | CT_ITS ---
PROCEDURE INFORMATION: Exam: CT Chest Without Contrast; Diagnostic Exam date and time: 12/12/2020 8:24 AM Age: 85 years old Clinical indication: Other: Low o2 sat TECHNIQUE: Imaging protocol: Diagnostic computed tomography of the chest without contrast. Radiation optimization: All CT scans at this facility use at least one of these dose optimization techniques: automated exposure control; mA and/or kV adjustment per patient size (includes targeted exams where dose is matched to clinical indication); or iterative reconstruction. COMPARISON: CR XR CHEST PORTABLE 12/12/2020 8:16 AM FINDINGS: Lungs: Chronic appearing pleuroparenchymal changes. No focal consolidation. Pleural spaces: Unremarkable. No pneumothorax. No pleural effusion. Heart: Unremarkable. No cardiomegaly. No pericardial effusion. Mediastinal space: Moderate hiatal hernia. Aorta: Unremarkable. No aortic aneurysm. Lymph nodes: Unremarkable. No enlarged lymph nodes. Bones/joints: Unremarkable. No acute fracture. Soft tissues: Unremarkable. IMPRESSION: 1. Moderate hiatal hernia. 2. Chronic appearing pleuroparenchymal changes. No focal consolidation.
--- NOTE | 2020-12-12 08:24 | CT_ITS ---
PROCEDURE INFORMATION: Exam: CT Abdomen And Pelvis Without Contrast Exam date and time: 12/12/2020 8:24 AM Age: 85 years old Clinical indication: Abdominal pain; Generalized; Additional info: Abdo pain TECHNIQUE: Imaging protocol: Computed tomography of the abdomen and pelvis without contrast. Radiation optimization: All CT scans at this facility use at least one of these dose optimization techniques: automated exposure control; mA and/or kV adjustment per patient size (includes targeted exams where dose is matched to clinical indication); or iterative reconstruction. COMPARISON: CT ABDOMEN PELVIS WO CON 01/23/2020 7:05 PM FINDINGS: Mediastinal space: Moderate hiatal hernia. Liver: Normal. No mass. Gallbladder and bile ducts: Gallbladder moderately distended with layering gallstones. No definite gallbladder wall thickening. Consider additional imaging with ultrasound. Pancreas: Normal. No ductal dilation. Spleen: Normal. No splenomegaly. Adrenal glands: Normal. No mass. Kidneys and ureters: Normal. No hydronephrosis. Stomach and bowel: Unremarkable. No obstruction. No mucosal thickening. Appendix: No evidence of appendicitis. Intraperitoneal space: Unremarkable. No free air. No significant fluid collection. Vasculature: Unremarkable. No abdominal aortic aneurysm. Lymph nodes: Unremarkable. No enlarged lymph nodes. Urinary bladder: Wilson catheter in the urinary bladder. Reproductive: Unremarkable as visualized. Bones/joints: Internal fixation right femur. Stable compression fracture L3. Soft tissues: Unremarkable. IMPRESSION: Gallbladder moderately distended with layering gallstones. No definite gallbladder wall thickening. Consider additional imaging with ultrasound.
--- NOTE | 2020-12-12 08:51 | PC.NURSE ---
OFF TO ct W/PATIENT AT THIS TIME, CATALINA BOCANEGRA
[2020-12-12 09:09] LABS: Lipase 53 U/L (23-300)
--- NOTE | 2020-12-12 09:16 | PC.NURSE ---
RETURNED FROM CT WITH PATIENT AT THIS TIME
--- NOTE | 2020-12-12 09:24 | PC.NURSE ---
HOLDING MORPHINE UNTIL PATIENT'S BLOOD PRESSURE CAN TOLERATE IT
[2020-12-12 10:51] LABS: Reflex Lactic Add Lactic Reflex
[2020-12-12 11:32] LABS: Chloride 111 mmol/L (98-107); Potassium 3.5 mmoL/L (3.5-5.1); Sodium 145 mmol/L (136-145)
[2020-12-12 11:35] LABS: Blood Urea Nitrogen 62 mg/dl (9-20); Carbon Dioxide 18 mmol/L (22.0-30.0); Creatinine Clearance Estimated 6 mL/min (50-200); Estimated Glomerular Filt Rate 7 ml/min (>60); GFR (African American) 8 ML/MIN (>60)
[2020-12-12 11:36] LABS: Glucose 92 mg/dl (74-100)
[2020-12-12 11:37] LABS: Anion Gap 19.5 mEq/L (5-15)
[2020-12-12 11:38] LABS: Calcium 8.2 mg/dl (8.4-10.2)
--- NOTE | 2020-12-12 12:24 | PC.NURSE ---
GAVE REPORT TO LIZETTE AT THIS TIME, SECOND FLOOR RN
--- NOTE | 2020-12-12 12:45 | HMH.PHAVTE ---
[facility] Pharmacy VTE Monitoring - Patient Demographics Admission date: 12/12/20 Report Date: 12/12/20 Time: 12:45 Allergies/Adverse Reactions: Patient Allergies cephalexin [From Keflex] Allergy (Verified 09/07/20 12:15) Unknown allergy reaction Height: 1.78 m Weight: 63.503 kg - VTE Risk Labs: VTE Related Lab Results Hgb 9.6 g/dL (14.1-18.0) L 12/12/20 06:45 Hct 30.5 % (42.0-52.0) L 12/12/20 06:45 Plt Count 395 K/mm3 (142-424) 12/12/20 06:45 BUN 62 mg/dl (9-20) H 12/12/20 11:15 Creatinine 7.60 mg/dl (0.66-1.25) H D 12/12/20 11:15 Estimated Creat Clear 6 mL/min (50-200) 12/12/20 11:15 - Prophylaxis VTE Prophylaxis Ordered?: Yes Types of VTE Prophylaxis: TEDS Knee High Location of Applied Device: Bilateral Lower Extremeties
--- NOTE | 2020-12-12 12:47 | HMH.PHAINT ---
MEDICATION RECONCILIATION COMPLETED ON PATIENT USING DISCHARGE SUMMARY FROM PREVIOUS VISIT. -ROSALBA ESCOBEDO, LUIS ANGELD
--- NOTE | 2020-12-12 12:54 | PC.NURSE ---
PT ARRIVED TO THE FLOOR AT 1250
[2020-12-12 13:23] LABS: Reflex Lactic (2 hrs) Add Lactic Reflex
[2020-12-12 13:57] LABS: Lactic Acid Follow up (RFLX 2) 1.8 mmol/L (0.7-2.1)
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
--- NOTE | 2020-12-12 15:48 | HMH.HP ---
*Admission Date: 12/12/20 *Chief complaint: ams *History of present illness: 85 yr old male presenting to ed via ambulance, Per [facility] nurse to report to ed nurse, pt was experiencing increased AMS, agitation, SaO2 79% and BP 80/40 in both arms with automatic cuff. EMS placed pt on 2LPM NC and was able to obtain sats >94% however pt will not keep O2 in place. Of note, pt was d/c from [facility] on 12/07 for UTI. per Nurse at [facility] they called pcp yesterday and was placed on levaquin. (per ED note) Pt is very poor historian. when asked he states dandy dokey . Patient was admitted for elevated lactic acid, and cre. [facility] History I have reviewed the patient's past medical history: Yes Medical History: Reports:: Arrhythmia, Chronic Obstructive Pulmonary Disease (COPD), Coronary Artery Disease, Hyperlipidemia, Hypertension, Renal Disease, Urinary Tract Infection Denies:: Cancer, Diabetes Mellitus Type 1, Diabetes Mellitus Type 2, MRSA *Have you ever received a pneumonia vaccine?: Yes *Have you received a flu vaccine this season?: Yes Other Medical History: Reports: Anemia, Arthritis Laterality Cases: Right: Other Other Surgeries: Yes: Cardiac Catheterization, Coronary Stent Amputation: No Fractures: No - *Social History Smoking Status: Former smoker Tobacco Type: cigarettes # Packs/Day (cigarettes): 1 #Yrs smoked (if former smoker): 57 Alcohol Intake: never Substance Use Type: denies use *Occupational Status:: disabled Housing: [facility] Household Members: family *Travel in the last 8 weeks: None Family Hx:: Unable to obtain Review of Systems - Review of Systems Review of systems:: unable to obtain, pertinent systems reviewed and negative unless documented below - Constitutional Denies body ache(s), Denies fatigue - Eyes Denies change in vision Meds Home Medications Medication Instructions Recorded Confirmed Type Finasteride [Proscar 5mg Tablet] 5 mg PO DAILY 04/27/18 12/12/20 History Tamsulosin HCl [Flomax 0.4mg 0.4 mg PO HS 04/27/18 12/12/20 History capsule] Losartan Potassium [Cozaar 50mg 50 mg PO DAILY 01/29/19 12/12/20 History Tablets] acetaminophen 500 mg capsule 500 mg PO Q4HP PRN cap 01/20/20 12/12/20 History sennosides 8.6 mg capsule 17.2 mg PO HS cap 01/20/20 12/12/20 History ondansetron HCL [Ondansetron 4mg 4 mg PO Q6HP PRN 01/23/20 12/12/20 History tab*] Furosemide [Furosemide 20mg Tab*] 20 mg PO DAILY 01/24/20 12/12/20 History Metoprolol Succinate [Metoprolol 25 mg PO DAILY 01/24/20 12/12/20 History Succinate 25mg Tablet*] gabapentin 100 mg capsule 200 mg PO TID 30 Days #180 cap 08/14/20 12/12/20 Rx oxycodone-acetaminophen 10 mg-325 1 tab PO BID #75 tab 11/30/20 12/12/20 Rx mg tablet Guaifenesin/Dextromethorphan 10 ml PO Q4HP PRN 12/01/20 12/12/20 History [Robafen Dm Cgh-Chest Riley Syrp] Lactulose 20 gm PO DAILY 12/01/20 12/12/20 History Oxycodone HCl/Acetaminophen 0.5 tab PO 1400 12/01/20 12/12/20 History [Oxycodone-Acetaminophen 10-325] Polyvinyl Alcohol [Artificial 2 drops OP TIDP PRN 12/01/20 12/12/20 History Tears Soln 15mL Bottle] Sertraline HCl [Zoloft] 50 mg PO DAILY 12/01/20 12/12/20 History levoFLOXacin [Levaquin 500mg 500 mg PO DAILY 12/12/20 12/12/20 History tab] Allergies Allergy/AdvReac Type Severity Reaction Status Date / Time cephalexin [From Keflex] Allergy Unknown Verified 09/07/20 12:15 allergy reaction Exam Vital signs and Labs for Last 24 Hours: Temp Pulse Resp BP Pulse Ox 98.2 F 87 18 110/52 L 91 L 12/12/20 15:17 12/12/20 15:17 12/12/20 15:17 12/12/20 15:17 12/12/20 15:17 Laboratory Results - last 24 hr 12/12/20 06:45: WBC 19.7 H, RBC 2.94 L, Hgb 9.6 L, Hct 30.5 L, MCV 103.5 H, MCH 32.7 H, MCHC 31.5 L, RDW 14.4, Plt Count 395, MPV 8.9, Neut % (Auto) 76.5, Lymph % (Auto) 17.4, [place] % (Auto) 4.2, Eos % (Auto) 1.4, Baso % (Auto) 0.4, Neut # (Auto) 15.1 H, Lymph # (Auto) 3.5, [place] # (Auto) 0.8, Eos # (
--- NOTE | 2020-12-12 16:37 | PC.NURSE ---
Pt has been very combative and vulgar this shift. Pt is not easily redirected. Bed alarm on for safety. Mitts remain on d/t pt attempting to hit staff when in the room and to prevent pt from pulling IV and norton out. Norton cath remains in place w/ cloudy, dark yellow urine draining per gravity. No other acute changes or complaints at this time. Will continue to monitor.
--- NOTE | 2020-12-12 22:22 | PC.NURSE ---
patient getting increasingly aggitated and combative, dr. weinberg pageha. new order received and carried out
[2020-12-13 04:00] VITALS: BP 129/65; PULSE 72; RESP 18; TEMP 36.8; O2SAT 97
--- NOTE | 2020-12-13 04:27 | PC.NURSE ---
shift summary patient has remained awake all night yelling and using profanities. patient not combative. bilateral mitts remain in place for protection of ivs and norton catheter. o2 sats have remained greater than 92% on r/a. heart rate regular. norton catheter to gravity draining clear,yellow urine.
--- NOTE | 2020-12-13 04:44 | PC.NURSE ---
since shift summary patient aggitastion has progressed to attempting to get out of bed and becoming combative. 2 mg im haldol given.
[2020-12-13 05:23] VITALS: BMI 22.4
[2020-12-13 06:22] LABS: Eosinophils # 0.3 K/mm3 (0.0-0.4); Monocytes # 0.7 K/mm3 (0.1-1.0)
--- NOTE | 2020-12-13 06:29 | PC.NURSE ---
patient has continued to yellow after receiving haldol, no longer attempting to get out of bed.
[2020-12-13 06:32] LABS: Basophils % 0.3 % (0.1-2.0); Eosinophils % 2.1 % (0.1-12.0); Hematocrit 25.4 % (42.0-52.0); Lymphocytes # 2.3 K/mm3 (0.7-4.5); Lymphocytes % 16.3 % (10-50); Mean Corpuscular HGB Conc 32.8 g/dL (31.8-35.4); Mean Corpuscular Hemoglobin 32.5 pg (27.0-31.2); Mean Corpuscular Volume 99.1 fl (80-94); Mean Platelet Volume 8.8 fl (7.4-10.4); Neutrophils # 10.6 K/mm3 (1.8-7.8); Neutrophils % 76.3 % (37.0-80.0); Platelet Count 340 K/mm3 (142-424); Red Blood Count 2.56 M/mm3 (4.60-6.20); Red Cell Distribution Width 14.5 % (11.5-17.5); White Blood Count 13.9 K/mm3 (4.8-10.8)
[2020-12-13 06:33] LABS: Hemoglobin 8.3 g/dL (14.1-18.0)
[2020-12-13 06:51] LABS: Anion Gap 15.9 mEq/L (5-15); Blood Urea Nitrogen 49 mg/dl (9-20); Calcium 8.3 mg/dl (8.4-10.2); Carbon Dioxide 18 mmol/L (22.0-30.0); Chloride 115 mmol/L (98-107); Creatinine Clearance Estimated 14 mL/min (50-200); Estimated Glomerular Filt Rate 16 ml/min (>60); GFR (African American) 19 ML/MIN (>60); Glucose 97 mg/dl (74-100); Potassium 3.9 mmoL/L (3.5-5.1); Sodium 145 mmol/L (136-145)
--- NOTE | 2020-12-13 07:31 | PC.NURSE ---
Addendum entered by Shira Grier RN 12/13/20 10:02: MD Chi aware of creatinine. No new orders Original Note: Received a call from Caitlyn in the lab regarding pt's creatinine of 3.7. Pt's name, , and room number.
[2020-12-13 08:00] VITALS: BP 143/53; PULSE 81; RESP 18; TEMP 36.6; O2SAT 99
--- NOTE | 2020-12-13 09:48 | HMH.ACPN2 ---
Internal Medicine - PN: Subj *Date: 12/14/20 *Time: 07:43 Interval history: looks better - more alert and near baseline - labs improved Exam Vital signs and Labs for Last 24 Hours: Temp Pulse Resp BP Pulse Ox 97.8 F 81 18 143/53 H 99 12/13/20 08:00 12/13/20 08:00 12/13/20 08:00 12/13/20 08:00 12/13/20 08:00 Laboratory Results - last 24 hr 12/12/20 06:50: Urine Color Yellow, Urine Appearance Clear, Urine pH 5.0, Ur Specific [place] >= 1.030, Urine Protein 1+, Urine Glucose (UA) Negative, Urine Ketones Trace, Urine Blood 1+, Urine Nitrate Negative, Urine Bilirubin Negative, Urine Urobilinogen 0.2, Ur Leukocyte Esterase Trace, Urine RBC 5-10, Urine WBC 3-5, Ur Squamous Epith Cells Occasional, Urine Bacteria None 12/12/20 11:15: Lactate 3.0 H 12/12/20 11:15: Sodium 145, Potassium 3.5 D, Chloride 111 H, Carbon Dioxide 18 L, Anion Gap 19.5 H, BUN 62 H, Creatinine 7.60 H D, Estimated Creat Clear 6, Estimated GFR 7 L*, Est GFR ( Amer) 8 L* D, Glucose 92, Calcium 8.2 L D 12/12/20 13:43: Lactate 1.8 12/13/20 05:35: WBC 13.9 H D, RBC 2.56 L, Hgb 8.3 L D, Hct 25.4 L, MCV 99.1 H, MCH 32.5 H, MCHC 32.8, RDW 14.5, Plt Count 340, MPV 8.8, Neut % (Auto) 76.3, Lymph % (Auto) 16.3, [place] % (Auto) 5.0, Eos % (Auto) 2.1, Baso % (Auto) 0.3, Neut # (Auto) 10.6 H, Lymph # (Auto) 2.3, [place]manuel # (Auto) 0.7, Eos # (Auto) 0.3, Baso # (Auto) 0.0 12/13/20 05:35: Sodium 145, Potassium 3.9, Chloride 115 H, Carbon Dioxide 18 L, Anion Gap 15.9 H, BUN 49 H, Creatinine 3.70 H D, Estimated Creat Clear 14, Estimated GFR 16 L*, Est GFR ( Amer) 19 L* D, Glucose 97, Calcium 8.3 L I & O for Last 24 hours: Intake & Output 12/10/20 12/11/20 12/12/20 12/13/20 11:59 11:59 11:59 11:59 Intake Total 3731 / 3731 Output Total 1925 / 1925 Balance 1806 / 1806 Weight 140 lb 156 lb 9 oz - Constitutional no acute distress - *Routine HEENT Exam Head: Present: normocephalic Eye: Present: EOMI, PERRL ENT: Present: mucous membranes dry - *Routine Neck Exam Absent: JVD - *Routine Respiratory Exam Present: decreased breath sounds - *Routine Cardiovascular Exam Present: RRR, murmur - *Routine Abdominal Exam Present: soft - *Routine Extremities Exam Absent: calf tenderness - *Routine Skin Exam Present: intact - *Routine Neurological Exam Present: CN II-XII intact - Routine Psychiatric Exam Present: unable to assess Assessment and Plan (1) Altered mental status Status: Acute Qualifiers: Altered mental status type: disorientation Qualified Code(s): R41.0 - Disorientation, unspecified Category: Medical Code(s): R41.82 - Altered mental status, unspecified (2) KATHYA (acute kidney injury) Status: Acute Category: Medical Code(s): N17.9 - Acute kidney failure, unspecified
[2020-12-13 15:14] VITALS: BP 113/53; PULSE 87; RESP 16; TEMP 37.3; O2SAT 96
--- NOTE | 2020-12-13 18:04 | PC.NURSE ---
Pt has been continuously uncooperative and combative this shift. Pt remains on RA, expiratory wheezing heard per auscultation. VSS. No other acute changes or complaints at this time, will continue to monitor.
[2020-12-13 20:00] VITALS: BP 157/85; PULSE 78; RESP 18; TEMP 36.6; O2SAT 97
[2020-12-13 21:37] LABS: Basophils % 0.3 % (0.1-2.0); Eosinophils # 0.2 K/mm3 (0.0-0.4); Eosinophils % 1.2 % (0.1-12.0); Hematocrit 26.6 % (42.0-52.0); Hemoglobin 8.7 g/dL (14.1-18.0); Lymphocytes # 1.6 K/mm3 (0.7-4.5); Lymphocytes % 12.4 % (10-50); Mean Corpuscular HGB Conc 32.7 g/dL (31.8-35.4); Mean Corpuscular Hemoglobin 31.9 pg (27.0-31.2); Mean Corpuscular Volume 97.5 fl (80-94); Mean Platelet Volume 8.5 fl (7.4-10.4); Monocytes # 0.7 K/mm3 (0.1-1.0); Monocytes % 5.7 % (1.7-9.3); Neutrophils % 80.4 % (37.0-80.0); Platelet Count 341 K/mm3 (142-424); Red Blood Count 2.72 M/mm3 (4.60-6.20); Red Cell Distribution Width 14.7 % (11.5-17.5); White Blood Count 12.5 K/mm3 (4.8-10.8)
[2020-12-13 21:42] LABS: Anion Gap 14.5 mEq/L (5-15); Blood Urea Nitrogen 34 mg/dl (9-20); Calcium 8.4 mg/dl (8.4-10.2); Carbon Dioxide 19 mmol/L (22.0-30.0); Chloride 117 mmol/L (98-107); Creatinine Clearance Estimated 28 mL/min (50-200); Estimated Glomerular Filt Rate 34 ml/min (>60); GFR (African American) 41 ML/MIN (>60); Glucose 119 mg/dl (74-100); Potassium 3.5 mmoL/L (3.5-5.1); Sodium 147 mmol/L (136-145)
[2020-12-14 04:00] VITALS: BP 157/95; PULSE 88; RESP 20; TEMP 36.6; O2SAT 96
--- NOTE | 2020-12-14 05:17 | PC.NURSE ---
patient has yelled out throughout most of shift with short intermittent periods of sleep. often times wanting a drink, patient took in 720 ml oral intake. patient has been incontinent of urine, no foul odor noted. breath sounds clear to auscultation. remains confused, oriented to person mostly , at times to place also. patient will follow commands at times.
[2020-12-14 05:19] VITALS: BMI 22.6
[2020-12-14 08:00] VITALS: BP 161/65; PULSE 99; TEMP 37; O2SAT 100
--- NOTE | 2020-12-14 09:05 | HMH.DCSUM ---
General - General Admission date:: 12/12/20 Discharge date: 12/14/20 HPI HPI: 85 yr old male presenting to ed via ambulance, Per [facility] nurse to report to [facility] nurse, pt was experiencing increased AMS, agitation, SaO2 79% and BP 80/40 in both arms with automatic cuff. EMS placed pt on 2LPM NC and was able to obtain sats >94% however pt will not keep O2 in place. Of note, pt was d/c from [facility] on 12/07 for UTI. per Nurse at [facility] they called pcp yesterday and was placed on levaquin. (per ED note) Pt is very poor historian. when asked he states dandy reyes . Patient was admitted for elevated lactic acid, and cre. Hospital Course Hospital Course: Laboratory Tests 12/12/20 12/12/20 12/12/20 06:45 06:45 06:45 WBC 19.7 H RBC 2.94 L Hgb 9.6 L Hct 30.5 L MCV 103.5 H MCH 32.7 H MCHC 31.5 L RDW 14.4 Plt Count 395 MPV 8.9 Neut % (Auto) 76.5 Lymph % (Auto) 17.4 [place] % (Auto) 4.2 Eos % (Auto) 1.4 Baso % (Auto) 0.4 Neut # (Auto) 15.1 H Lymph # (Auto) 3.5 [place] # (Auto) 0.8 Eos # (Auto) 0.3 Baso # (Auto) 0.1 Total Counted 100 Neutrophils % (Manual) 77 H Lymphocytes % (Manual) 18 Monocytes % (Manual) 5 Platelet Estimate Normal RBC Morphology Not Reportable Hypochromasia 1+ Microcytosis 1+ ESR > 140 H Sodium 149 H Potassium 5.1 Chloride 108 H Carbon Dioxide 21 L Anion Gap 25.1 H BUN 65 H Creatinine 9.60 H Estimated Creat Clear 5 Estimated GFR 5 L* Est GFR ( Amer) 6 L* Glucose 106 H Lactate 7.2 H Calcium 9.3 Total Bilirubin 0.5 AST 78 H ALT 43 Alkaline Phosphatase 72 C-Reactive Protein 61.4 H Total Protein 7.3 Albumin 4.0 Globulin 3.3 H Albumin/Globulin Ratio 1.2 Lipase Procalcitonin 0.328 Urine Color Urine Appearance Urine pH Ur Specific [place] Urine Protein Urine Glucose (UA) Urine Ketones Urine Blood Urine Nitrate Urine Bilirubin Urine Urobilinogen Ur Leukocyte Esterase Urine RBC Urine WBC Ur Squamous Epith Cells Urine Bacteria SARS-CoV-2 (PCR) Influenza A Untype (PCR) Influenza Type B (PCR) 12/12/20 12/12/20 12/12/20 06:45 06:50 07:45 WBC RBC Hgb Hct MCV MCH MCHC RDW Plt Count MPV Neut % (Auto) Lymph % (Auto) [place] % (Auto) Eos % (Auto) Baso % (Auto) Neut # (Auto) Lymph # (Auto) [place] # (Auto) Eos # (Auto) Baso # (Auto) Total Counted Neutrophils % (Manual) Lymphocytes % (Manual) Monocytes % (Manual) Platelet Estimate RBC Morphology Hypochromasia Microcytosis ESR Sodium Potassium Chloride Carbon Dioxide Anion Gap BUN Creatinine Estimated Creat Clear Estimated GFR Est GFR ( Amer) Glucose Lactate Calcium Total Bilirubin AST ALT Alkaline Phosphatase C-Reactive Protein Total Protein Albumin Globulin Albumin/Globulin Ratio Lipase 53 Procalcitonin Urine Color Yellow Urine Appearance Clear Urine pH 5.0 Ur Specific [place] >= 1.030 Urine Protein 1+ Urine Glucose (UA) Negative Urine Ketones Trace Urine Blood 1+ Urine Nitrate Negative Urine Bilirubin Negative Urine Urobilinogen 0.2 Ur Leukocyte Esterase Trace Urine RBC 5-10 Urine WBC 3-5 Ur Squamous Epith Cells Occasional Urine Bacteria None SARS-CoV-2 (PCR) Not detected Influenza A Untype (PCR) Not detected Influenza Type B (PCR) Not detected 12/12/20 12/12/20 12/12/20 11:15 11:15 13:43 WBC RBC Hgb Hct MCV MCH MCHC RDW Plt Count MPV Neut % (Auto) Lymph % (Auto) [place] % (Auto) Eos % (Auto) Baso % (Auto) Neut # (Auto) Lymph # (Auto) [place] # (Auto) Eos # (Auto) Baso # (Auto) Total Count
--- NOTE | 2020-12-14 11:16 | SW/DCPLANNER ---
This patient currently resides at [facility]. I spoke with Judith this AM from [place] and she has stated that patient is [facility] level of care. Patient is planned to discharge back to [facility] today. I will continue to follow up with Judith regarding this patient.
== END 2020-12-14 12:00 | DRG 684 ==
LOC: ER 08:03 → 2ND 12:12
PROVIDERS: Admitting Provider Emergency Medicine; Emergency Provider Emergency Medicine; PCP Emergency Medicine; Visit Provider Emergency Medicine
DX: N17.9 Acute kidney failure, unspecified (principal); I95.9 Hypotension, unspecified; J44.9 Chronic obstructive pulmonary disease, unspecified; I25.10 Atherosclerotic heart disease of native coronary artery without angina pectoris; E78.5 Hyperlipidemia, unspecified; I10 Essential (primary) hypertension; M19.90 Unspecified osteoarthritis, unspecified site; Z95.5 Presence of coronary angioplasty implant and graft; Z87.891 Personal history of nicotine dependence; Z87.440 Personal history of urinary (tract) infections
CPT/HCPCS: 36415; 71045; 71250; 74176; 80048; 80053; 81001; 83605; 83690; 84145; 85007; 85025; 85651; 86140; 87040; 93005; 96365; 99285; 99291; J1335; U0003

== ENCOUNTER 2020-12-19 20:20 | Emergency (ER) | payer MEDICARE, MEDICAID, SELFPAY ==
[2020-12-19 20:27] VITALS: BP 122/68; PULSE 73; RESP 18; TEMP 37.1; O2SAT 97; BMI 27.6
[2020-12-19 20:29] VITALS: BMI 22.1
--- NOTE | 2020-12-19 20:30 | CT_ITS ---
PROCEDURE INFORMATION: Exam: CT Cervical Spine Without Contrast Exam date and time: 12/19/2020 8:30 PM Age: 85 years old Clinical indication: Injury or trauma; Fall; Blunt trauma TECHNIQUE: Imaging protocol: Computed tomography images of the cervical spine without contrast. Radiation optimization: All CT scans at this facility use at least one of these dose optimization techniques: automated exposure control; mA and/or kV adjustment per patient size (includes targeted exams where dose is matched to clinical indication); or iterative reconstruction. COMPARISON: CT CERVICAL SPINE WO CON 08/14/2019 12:36 AM FINDINGS: Vertebrae: No acute fracture. Normal alignment. Stable multilevel degenerative facet and disc changes. Stable straightening of the normal cervical lordosis Stable vascular calcifications. Soft tissues: Unremarkable. Lungs: Lung apices are normal. IMPRESSION: No acute fracture or malalignment.
--- NOTE | 2020-12-19 20:30 | XR_ITS ---
PROCEDURE INFORMATION: Exam: XR Chest Exam date and time: 12/19/2020 8:30 PM Age: 85 years old Clinical indication: Injury or trauma; Fall; Blunt trauma (contusions or hematomas) TECHNIQUE: Imaging protocol: XR of the chest. Views: 4 or more views. Total images: 1 COMPARISON: CT CHEST WO CON 12/12/2020 8:57 AM FINDINGS: Lungs: Low lung volumes. Pulmonary vasculature grossly normal. Moderate bilateral peripheral interstitial prominence consistent with interstitial fibrosis, similar to recent CT 12/12/2020. Pleural spaces: No pleural effusion. No pneumothorax. Heart/Mediastinum: Heart size normal. No tracheal/mediastinal shift. Bones/joints: Osteopenia. No acute osseous abnormalities are identified. Clark screw in the left acromion. IMPRESSION: 1. No acute findings. No significant change from chest CT 12/12/2020. 2. No fractures or pneumothorax are identified radiographically. 3. Moderate peripheral interstitial fibrosis.
--- NOTE | 2020-12-19 20:30 | CT_ITS ---
PROCEDURE INFORMATION: Exam: CT Head Without Contrast Exam date and time: 12/19/2020 8:30 PM Age: 85 years old Clinical indication: Injury or trauma; Fall; Blunt trauma (contusions or hematomas); Additional info: Fall, no loc TECHNIQUE: Imaging protocol: Computed tomography of the head without contrast. Radiation optimization: All CT scans at this facility use at least one of these dose optimization techniques: automated exposure control; mA and/or kV adjustment per patient size (includes targeted exams where dose is matched to clinical indication); or iterative reconstruction. COMPARISON: CT HEAD/BRAIN WO CON 08/14/2019 12:33 AM FINDINGS: Brain: There is a new focal hypodensity demonstrated in the right occipital lobe which has the appearance of a subacute area of ischemia. There is no evidence of acute intracranial hemorrhage, midline shift, mass effect, mass lesion or findings suggestive of a large vascular territory infarct. Stable nonspecific periventricular white matter ischemic changes otherwise. Cerebral ventricles: Stable mild enlargement of the ventricles consistent with volume loss or generalized cerebral atrophy. Paranasal sinuses: Visualized sinuses are unremarkable. No fluid levels. Mastoid air cells: Visualized mastoid air cells are well aerated. Vasculature: Stable vascular calcifications. Bones/joints: Unremarkable. No acute fracture. Soft tissues: Unremarkable. IMPRESSION: 1. There is a new focal hypodensity demonstrated in the right occipital lobe which has the appearance of a subacute area of ischemia. 2. There is no evidence of acute intracranial hemorrhage, midline shift, mass effect, mass lesion or findings suggestive of a large vascular territory infarct.
--- NOTE | 2020-12-19 20:30 | XR_ITS ---
PROCEDURE INFORMATION: Exam: XR Pelvis Exam date and time: 12/19/2020 8:30 PM Age: 85 years old Clinical indication: Injury or trauma; Fall; Blunt trauma (contusions or hematomas); Does not apply; Pelvic region TECHNIQUE: Imaging protocol: XR pelvis. Views: 1 or 2 view. Total images: 2 COMPARISON: CT ABDOMEN PELVIS WO CON 12/12/2020 8:57 AM FINDINGS: Bones/joints: Osteopenia. Right proximal femoral fixation hardware without gross hardware complication or change. 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 No acute fractures are identified radiographically. Chronic moderate superior endplate compression fracture of L3 is unchanged.Transitional lumbosacral segment designated a partially sacralized L5 segment for purposes of this exam. Soft tissues: No gross soft tissue abnormalities. Vasculature: Moderate calcific atherosclerosis. IMPRESSION: No acute findings. No significant change from abdomen/pelvic CT 12/12/2020.
--- NOTE | 2020-12-19 21:18 | HMH.EDFALL ---
ED Disposition Clinical Impression: Fall Qualifiers: Encounter type: initial encounter Qualified Code(s): W19.XXXA - Unspecified fall, initial encounter Head contusion Qualifiers: Encounter type: initial encounter Contusion of head detail: scalp Qualified Code(s): S00.03XA - Contusion of scalp, initial encounter Disposition: Home, Self-Care Condition on Discharge: Good Instructions: How to Prevent Falls Additional Instructions: resume orders Referrals: Tomas Chi MD [Primary Care Provider] - - Critical Care Critical Care Time: No Attestation: On 12/19/20, the high probability of a clinically significant, sudden or life threatening deterioration of the following system(s) required my full and direct attention, intervention and personal management. The time I documented below is in addition to time spent performing reported procedures but includes the following listed in this critical care notation. Medical Decision Making - Medical Records Medical records reviewed: Yes: I reviewed the patient's medical records. - John Inquiry Pt receiving controlled substance: No Vital Signs: 12/19/20 20:27 Temperature 98.7 F Temperature Source Oral Pulse Rate [Right Brachial] 73 Respiratory Rate 18 Blood Pressure [Right Arm] 122/68 Blood Pressure Mean [Right Arm] 86 Blood Pressure Source [Right Arm] Automatic Cuff Blood Pressure Position [Right Arm] Sitting 02 Sat by Pulse Oximetry 97 Oxygen Delivery Method Room Air - Lab Data Lab results reviewed: Yes: I reviewed the patient's lab results. - Radiology Data #1 Image(s): Chest, Pelvis Image Reviewed: Yes I reviewed the patient's radiology image Preliminary Findings: No Fracture Seen - CT Data CT Scan: Head, C-Spine Time Received: 22:[address] Reviewed: Yes: I have viewed the radiologist's interpretation Preliminary Findings: Abnormal (see report ) Medical Decision Narrative: pt with no acute fx Fall HPI - General Chief Complaint: Fall Stated Complaint: FALL WITH LEFT SHOULDER AND HEAD PAIN Time Seen by Provider: 12/19/20 20:40 Mode of Arrival: EMS Source of Information: Patient, EMS, Medical Record Limitations: No Limitations Description of Symptoms (Recalled from ER Triage Doc. by RN): UNWITNESSED FALL WITH POSSIBLE INJURY TO HEAD AND SHOULDERS BILATERALLY. PT IS ADAMANT HE WANTS TO BE PICKED UP AND JUST PUT IN THE CHAIR . PT MENTATION AT BASELINE. NO LETHARGY. NO LOC THAT HE ADMITS TO. DENIES NECK PAIN - History of Present Illness HPI Narrative: fall at [facility] with head and shoulder pain complaint: fall Onset (ago): hour(s) Fall from: wheelchair Fall witnessed: no Place fall occurred: jail[facility] Loss of consciousness: none Symptoms prior to fall: none Context: history of frequent falls Location of injury: head, neck Severity: moderate Associated symptoms (after fall): denies - Related Data Home Medications Medication Instructions Recorded Confirmed Finasteride [Proscar 5mg Tablet] 5 mg PO DAILY 04/27/18 12/12/20 Tamsulosin HCl [Flomax 0.4mg 0.4 mg PO HS 04/27/18 12/12/20 capsule] acetaminophen 500 mg capsule 500 mg PO Q4HP PRN cap 01/20/20 12/12/20 sennosides 8.6 mg capsule 17.2 mg PO HS cap 01/20/20 12/12/20 ondansetron HCL [Ondansetron 4mg 4 mg PO Q6HP PRN 01/23/20 12/12/20 tab*] Furosemide [Furosemide 20mg Tab*] 20 mg PO DAILY 01/24/20 12/12/20 Metoprolol Succinate [Metoprolol 25 mg PO DAILY 01/24/20 12/12/20 Succinate 25mg Tablet*] Guaifenesin/Dextromethorphan 10 ml PO Q4HP PRN 12/01/20 12/12/20 [Robafen Dm Cgh-Chest Riley Syrp] Lactulose 20 gm PO DAILY 12/01/20 12/12/20 Oxycodone HCl/Acetaminophen 0.5 tab PO 1400 12/01/20 12/12/20 [Oxycodone-Acetaminophen 10-325] Polyvinyl Alcohol [Artificial 2 drops OP TIDP PRN 12/01/20 12/12/20 Tears Soln 15mL Bottle] Sertraline HCl [Zoloft] 50 mg PO DAILY 12/01/20 12/12/20 Previous Rx's Medication Instructions Recorded oxycodone-acet
[2020-12-19 21:30] VITALS: PULSE 71; O2SAT 98
[2020-12-19 22:02] VITALS: BP 144/76; PULSE 74; O2SAT 95
[2020-12-19 22:30] VITALS: BP 126/86; PULSE 81; O2SAT 97
--- NOTE | 2020-12-19 22:36 | PC.NURSE ---
Called [facility] to transport pt back to [facility]. Also called [facility] and s/w [facility] that resident would be coming back
[2020-12-19 22:39] VITALS: BP 126/76; PULSE 88; RESP 18; TEMP 36.6; O2SAT 96
--- NOTE | 2020-12-19 22:41 | PC.NURSE ---
Pt's son called asking for update on pt.
[2020-12-19 22:45] VITALS: PULSE 82; O2SAT 98
== END 2020-12-19 22:54 | disposition home or self-care (01) ==
PROVIDERS: Emergency Provider Emergency Medicine; PCP Emergency Medicine
DX: S00.03XA Contusion of scalp, initial encounter (principal); W01.0XXA Fall on same level from slipping, tripping and stumbling without subsequent striking against object, initial encounter; Y92.129 Unspecified place in nursing home as the place of occurrence of the external cause; I25.10 Atherosclerotic heart disease of native coronary artery without angina pectoris; I10 Essential (primary) hypertension; E78.5 Hyperlipidemia, unspecified; J44.9 Chronic obstructive pulmonary disease, unspecified; Z87.891 Personal history of nicotine dependence; Z79.899 Other long term (current) drug therapy
CPT/HCPCS: 70450; 71045; 72125; 72170; 99283

== ENCOUNTER 2021-01-05 08:17 | Emergency (ER) | payer MEDICARE, MEDICAID, SELFPAY ==
[2021-01-05 08:19] VITALS: BP 118/48; RESP 18; TEMP 37.5; O2SAT 96; BMI 24.3
--- NOTE | 2021-01-05 09:05 | HMH.EDGENADL ---
ED Disposition Clinical Impression: Laceration Disposition: Home, Self-Care Condition on Discharge: Good Instructions: DI for Laceration Repair Referrals: Tomas Chi MD [Primary Care Provider] - 3 days Time of Disposition: 09:36 - Critical Care Critical Care Time: No Attestation: On 01/05/21, the high probability of a clinically significant, sudden or life threatening deterioration of the following system(s) required my full and direct attention, intervention and personal management. The time I documented below is in addition to time spent performing reported procedures but includes the following listed in this critical care notation. Medical Decision Making - Medical Records Medical records reviewed: Yes: I reviewed the patient's medical records. - John Inquiry Pt receiving controlled substance: No Vital Signs: 01/05/21 08:19 Temperature 99.5 F Temperature Source Oral Respiratory Rate 18 Blood Pressure [Right Arm] 118/48 L Blood Pressure Mean [Right Arm] 71 Blood Pressure Source [Right Arm] Automatic Cuff 02 Sat by Pulse Oximetry 96 Oxygen Delivery Method Room Air Orders (Tests/Meds): ORDERS Category Date Time Status Foot XR left 2 views [XR foot LT 2V] Stat Exams 01/05/21 09:34 Taken - Radiology Data #1 Image(s): Foot/Toes Image Reviewed: Yes I reviewed the patient's radiology image Preliminary Findings: Normal/NAD Medical Decision Narrative: 85yo M evaluated for trauma wound to his left foot. Patient is in no acute distress initial evaluation. Exam and history severely limited by dementia. See procedure note for details. General Adult HPI - General Chief complaint: Wound/Laceration Stated complaint: laceration to foot Time Seen by Provider: 01/05/21 09:05 Mode of Arrival: EMS Limitations: all the above Description of Symptoms (Recalled from ER Triage Doc. by RN): patient was getting out of bed this AM when he pulled TV off of nightstand onto left foot creating laceration on top of foot. patient cannot express pain scale to me at this time. patient VSS and not apprearing to be in any distress due to injury - History of Present Illness HPI narrative: 85yo M brought to emergency department via EMS secondary to a laceration on his left foot. Patient is severely demented and unable to contribute to his history at this time. correction report that the patient pulled the TV off of his furniture and landed on his foot. - Related Data Home Medications Medication Instructions Recorded Confirmed Finasteride [Proscar 5mg Tablet] 5 mg PO DAILY 04/27/18 12/12/20 Tamsulosin HCl [Flomax 0.4mg 0.4 mg PO HS 04/27/18 12/12/20 capsule] acetaminophen 500 mg capsule 500 mg PO Q4HP PRN cap 01/20/20 12/12/20 sennosides 8.6 mg capsule 17.2 mg PO HS cap 01/20/20 12/12/20 ondansetron HCL [Ondansetron 4mg 4 mg PO Q6HP PRN 01/23/20 12/12/20 tab*] Furosemide [Furosemide 20mg Tab*] 20 mg PO DAILY 01/24/20 12/12/20 Metoprolol Succinate [Metoprolol 25 mg PO DAILY 01/24/20 12/12/20 Succinate 25mg Tablet*] Guaifenesin/Dextromethorphan 10 ml PO Q4HP PRN 12/01/20 12/12/20 [Robafen Dm Cgh-Chest Riley Syrp] Lactulose 20 gm PO DAILY 12/01/20 12/12/20 Oxycodone HCl/Acetaminophen 0.5 tab PO 1400 12/01/20 12/12/20 [Oxycodone-Acetaminophen 10-325] Polyvinyl Alcohol [Artificial 2 drops OP TIDP PRN 12/01/20 12/12/20 Tears Soln 15mL Bottle] Sertraline HCl [Zoloft] 50 mg PO DAILY 12/01/20 12/12/20 Previous Rx's Medication Instructions Recorded oxycodone-acetaminophen 10 mg-325 1 tab PO BID #75 tab 11/30/20 mg tablet Gabapentin [Gabapentin 100mg Cap] 100 mg PO TID 30 Days #90 cap 12/14/20 Losartan Potassium [Cozaar 50mg 25 mg PO DAILY #30 tab 12/14/20 Tablets] lorazepam 0.5 mg tablet 0.5 mg PO QHS #30 tab 12/23/20 Allergies Allergy/AdvReac Type Severity Reaction Status Date / Time cephalexin [From Keflex] Allergy Unknown Verified 09/07/20 12:15 allergy
--- NOTE | 2021-01-05 09:34 | XR_ITS ---
PROCEDURE: XR FOOT LT 2V CLINICAL INDICATION: Trauma Pain, laceration COMPARISON: No exams were available for comparison FINDINGS: No fracture or dislocation. No lytic or blastic change. There is normal mineralization. 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 Dictated by: Tony Tierney MD 01/05/2021 10:34 Tony Tierney MD in [facility] 01/05/2021 10:34
--- NOTE | 2021-01-05 10:01 | PC.NURSE ---
report called to SAHRA Kaur at [facility] called for transport back to facility.
[2021-01-05 10:52] VITALS: BP 106/44; PULSE 60; RESP 18; TEMP 37; O2SAT 97
== END 2021-01-05 10:54 | disposition home or self-care (01) ==
PROVIDERS: Emergency Provider Family Medicine; PCP Emergency Medicine
DX: S91.312A Laceration without foreign body, left foot, initial encounter (principal); W22.8XXA Striking against or struck by other objects, initial encounter; Y92.122 Bedroom in nursing home as the place of occurrence of the external cause; F03.90 Unspecified dementia, unspecified severity, without behavioral disturbance, psychotic disturbance, mood disturbance, and anxiety; J44.9 Chronic obstructive pulmonary disease, unspecified; I25.10 Atherosclerotic heart disease of native coronary artery without angina pectoris; I10 Essential (primary) hypertension; Z87.891 Personal history of nicotine dependence; E78.5 Hyperlipidemia, unspecified
CPT/HCPCS: 12002; 73620; 99283

== ENCOUNTER → 2021-01-07 09:58 | Outpatient (CLI) | payer OTHER, SELFPAY | PROVIDERS: Visit Provider Emergency Medicine | DX: R09.81 Nasal congestion (principal); A49.02 Methicillin resistant Staphylococcus aureus infection, unspecified site | CPT/HCPCS: 87070; 87077; 87186 ==

== ENCOUNTER 2021-01-10 05:02 | Emergency (ER) | payer MEDICARE, MEDICAID, SELFPAY ==
[2021-01-10 04:46] VITALS: BP 115/66; PULSE 97; RESP 18; TEMP 37.1; O2SAT 94; BMI 22.6
--- NOTE | 2021-01-10 04:46 | CT_ITS ---
PROCEDURE INFORMATION: Exam: CT Cervical Spine Without Contrast Exam date and time: 01/10/2021 4:46 AM Age: 85 years old Clinical indication: Injury or trauma; Fall TECHNIQUE: Imaging protocol: Computed tomography images of the cervical spine without contrast. Radiation optimization: All CT scans at this facility use at least one of these dose optimization techniques: automated exposure control; mA and/or kV adjustment per patient size (includes targeted exams where dose is matched to clinical indication); or iterative reconstruction. COMPARISON: CT CERVICAL SPINE WO CON 12/19/2020 8:56 PM FINDINGS: Bones/joints: The patient is diffusely osteopenic. Diffuse cervical spondylosis is noted. Multiple marginal osteophytes are present. Hypertrophic changes the of the facets are present bilaterally. Discs/Spinal canal/Neural foramina: Degenerative changes are seen at C1-C2. Narrowing of the intervertebral disc space is seen at C5-C6 and C6-C7. Lungs: Chronic appearing interstitial changes are seen in the lungs. Vasculature: Carotid artery calcifications are present bilaterally. Soft tissues: Unremarkable. IMPRESSION: Diffuse cervical spondylosis without acute fracture or dislocation. Bilateral carotid atherosclerosis. 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
--- NOTE | 2021-01-10 04:46 | CT_ITS ---
PROCEDURE INFORMATION: Exam: CT Head Without Contrast Exam date and time: 01/10/2021 4:46 AM Age: 85 years old Clinical indication: Injury or trauma; Fall TECHNIQUE: Imaging protocol: Computed tomography of the head without contrast. Radiation optimization: All CT scans at this facility use at least one of these dose optimization techniques: automated exposure control; mA and/or kV adjustment per patient size (includes targeted exams where dose is matched to clinical indication); or iterative reconstruction. COMPARISON: CT HEAD/BRAIN WO CON 12/19/2020 8:52 PM FINDINGS: Brain: There is diffuse prominence of the cerebral sulci, cisterns, and ventricles consistent with atrophy. No intra or extra-axial fluid collections are noted. No mass or mass effect is seen. Periventricular white matter hypoattenuation is seen consistent with small vessel chronic ischemic changes. Cerebral ventricles: No ventriculomegaly. Paranasal sinuses: Visualized sinuses are unremarkable. No fluid levels. Mastoid air cells: Visualized mastoid air cells are well aerated. Bones/joints: Unremarkable. No acute fracture. Soft tissues: Unremarkable. IMPRESSION: No acute process identified. Stable right occipital infarction.
--- NOTE | 2021-01-10 04:46 | CT_ITS ---
PROCEDURE INFORMATION: Exam: CT Lumbar Spine Without Contrast Exam date and time: 01/10/2021 4:46 AM Age: 85 years old Clinical indication: Injury or trauma; Fall TECHNIQUE: Imaging protocol: Computed tomography images of the lumbar spine without contrast. Radiation optimization: All CT scans at this facility use at least one of these dose optimization techniques: automated exposure control; mA and/or kV adjustment per patient size (includes targeted exams where dose is matched to clinical indication); or iterative reconstruction. COMPARISON: CT THORACIC SPINE WO CON 01/10/2021 6:05 AM FINDINGS: Vertebrae: The patient is diffusely osteopenic. An old compression fracture of L3 is again noted. No acute fracture or dislocation. Discs/Spinal canal/Neural foramina: No significant disc protrusion. No severe spinal canal stenosis. No significant neural foraminal narrowing. Soft tissues: Unremarkable. IMPRESSION: Stable L3 compression fracture, no new injury identified
--- NOTE | 2021-01-10 04:46 | CT_ITS ---
PROCEDURE INFORMATION: Exam: CT Thoracic Spine Without Contrast Exam date and time: 01/10/2021 4:46 AM Age: 85 years old Clinical indication: Injury or trauma; Fall TECHNIQUE: Imaging protocol: Computed tomography images of the thoracic spine without contrast. Radiation optimization: All CT scans at this facility use at least one of these dose optimization techniques: automated exposure control; mA and/or kV adjustment per patient size (includes targeted exams where dose is matched to clinical indication); or iterative reconstruction. COMPARISON: CT CERVICAL SPINE WO CON 01/10/2021 6:02 AM FINDINGS: Vertebrae: There is a moderate kyphotic deformity. The patient is diffusely osteopenic. Multiple small marginal osteophytes are present. No acute fracture or dislocation is identified. Discs/Spinal canal/Neural foramina: No significant disc protrusion. No severe spinal canal stenosis. No significant neural foraminal narrowing. Soft tissues: Unremarkable. Lungs: Chronic appearing interstitial changes are seen in the lungs. IMPRESSION: No evidence of fracture or dislocation mild diffuse degenerative changes are present.
--- NOTE | 2021-01-10 04:55 | HMH.EDGENADL ---
ED Disposition Clinical Impression: Fall Qualifiers: Encounter type: initial encounter Qualified Code(s): W19.XXXA - Unspecified fall, initial encounter Disposition: Home, Self-Care Condition on Discharge: Good - Critical Care Critical Care Time: No Attestation: On , the high probability of a clinically significant, sudden or life threatening deterioration of the following system(s) required my full and direct attention, intervention and personal management. The time I documented below is in addition to time spent performing reported procedures but includes the following listed in this critical care notation. Medical Decision Making - John Inquiry Pt receiving controlled substance: No Vital Signs: 01/10/21 04:46 Temperature 98.7 F Temperature Source Oral Pulse Rate [Right] 97 H Respiratory Rate 18 Blood Pressure [Right Arm] 115/66 Blood Pressure Mean [Right Arm] 82 Blood Pressure Source [Right Arm] Automatic Cuff Blood Pressure Position [Right Arm] Supine 02 Sat by Pulse Oximetry 94 L Oxygen Delivery Method Room Air - Lab Data Lab Results 01/10/21 05:15: WBC 12.2 H, RBC 3.15 L, Hgb 10.1 L, Hct 32.7 L, MCV 103.8 H, MCH 32.0 H, MCHC 30.9 L, RDW 14.8, Plt Count 331, MPV 8.0, Neut % (Auto) 68.1, Lymph % (Auto) 22.3, [place] % (Auto) 5.0, Eos % (Auto) 4.2, Baso % (Auto) 0.4, Neut # (Auto) 8.3 H, Lymph # (Auto) 2.7, [place] # (Auto) 0.6, Eos # (Auto) 0.5 H, Baso # (Auto) 0.1 01/10/21 05:15: Sodium 149 H, Potassium 5.1, Chloride 113 H, Carbon Dioxide 28, Anion Gap 13.1, BUN 41 H, Creatinine 3.00 H, Estimated Creat Clear 16, Estimated GFR 20 L, Est GFR ( Amer) 24 L, Glucose 121 H, Calcium 9.3, Total Bilirubin 0.5, AST 51, ALT 29, Alkaline Phosphatase 116, Total Protein 7.4, Albumin 3.8, Globulin 3.6 H, Albumin/Globulin Ratio 1.1 Result diagrams: 01/10/21 05:15 01/10/21 05:15 Medical Decision Narrative: The patient is an 85-year-old male who presents to the emergency department after a fall out of bed. Differential diagnosis includes intracranial hemorrhage, skull fracture, spinal fracture, rib fractures, intra-abdominal injury. Given this plan to obtain CBC, CMP, CT head, CT C-spine, CT T-spine, CT L-spine, CT a chest, CT abdomen pelvis. On arrival the patient's vital signs are stable and he is overall well-appearing. On physical exam he does not seem to be tender however he is not answering questions. He is not on blood thinners. There is concern that he had his head and he was also apparently complaining at the senior living with neck and back pain. CT scans showed no acute traumatic injuries. Labs are reviewed and not concerning. He has a very slight leukocytosis without any signs of infection. His sodium is elevated however when compared to prior checks is not concerning. His creatinine is also elevated but down from his recent checks. Given this and report of the patient is at his mental status baseline he was deemed appropriate for discharge back to his nursing facility. General Adult HPI - General Stated complaint: HEAD PAIN Time Seen by Provider: 01/10/21 04:50 Source of Information: EMS Limitations: Not speaking - History of Present Illness HPI narrative: 85-year-old male who presents to the emergency department from a senior living after falling out of bed. The nurse reportedly heard the alarm go off and went to check on the patient. He was on the floor and complaining of neck and back pain. She was concerned he hit his head. EMS reports the patient was holding his head in the ambulance. He does not answer questions on arrival which is reportedly his baseline. Has not received any medications the fall. - Related Data Home Medications Medication Instructions Recorded Confirmed Finasteride [Proscar 5mg Tablet] 5 mg PO DAILY 04/27/18 12/12/20 Tamsulosin HCl [Flomax 0.4mg 0.4 mg PO HS 04/27/18 12/12/20 capsule] acetaminophen 500 mg capsule 500 mg PO Q4HP PRN cap 01/20/20
--- NOTE | 2021-01-10 05:20 | CT_ITS ---
PROCEDURE INFORMATION: Exam: CT Abdomen And Pelvis Without Contrast Exam date and time: 01/10/2021 5:20 AM Age: 85 years old Clinical indication: Injury or trauma; Fall TECHNIQUE: Imaging protocol: Computed tomography of the abdomen and pelvis without contrast. Radiation optimization: All CT scans at this facility use at least one of these dose optimization techniques: automated exposure control; mA and/or kV adjustment per patient size (includes targeted exams where dose is matched to clinical indication); or iterative reconstruction. COMPARISON: CT ABDOMEN PELVIS WO CON 12/12/2020 8:57 AM FINDINGS: Liver: Normal. No mass. Gallbladder and bile ducts: The gallbladder is somewhat distended and contains some dependent sludge and gallstones. Moderate retained stool is present. Pancreas: Normal. No ductal dilation. Spleen: Normal. No splenomegaly. Adrenal glands: Normal. No mass. Kidneys and ureters: Normal. No hydronephrosis. Stomach and bowel: Unremarkable. No obstruction. No mucosal thickening. Appendix: No evidence of appendicitis. Intraperitoneal space: Unremarkable. No free air. No significant fluid collection. Vasculature: Unremarkable. No abdominal aortic aneurysm. Lymph nodes: Unremarkable. No enlarged lymph nodes. Urinary bladder: Unremarkable as visualized. Reproductive: Unremarkable as visualized. Bones/joints: The patient is status post OR IF a right hip fracture. The patient is diffusely osteopenic. Soft tissues: Unremarkable. IMPRESSION: 1. No acute process is seen in the abdomen or pelvis. 2. Cholelithiasis.
--- NOTE | 2021-01-10 05:20 | CT_ITS ---
PROCEDURE INFORMATION: Exam: CT Chest Without Contrast; Diagnostic Exam date and time: 01/10/2021 5:20 AM Age: 85 years old Clinical indication: Injury or trauma; Fall TECHNIQUE: Imaging protocol: Diagnostic computed tomography of the chest without contrast. 3D rendering (Not supervised by radiologist): MIP and/or 3D reconstructed images were created by the technologist. Radiation optimization: All CT scans at this facility use at least one of these dose optimization techniques: automated exposure control; mA and/or kV adjustment per patient size (includes targeted exams where dose is matched to clinical indication); or iterative reconstruction. COMPARISON: CT CHEST WO CON 12/12/2020 8:57 AM FINDINGS: Lungs: Chronic subpleural changes are seen bilaterally these have a cascading fibrotic appearance consistent with early pulmonary fibrosis Pleural spaces: Unremarkable. No pneumothorax. No pleural effusion. Heart: Extensive coronary atherosclerosis is noted. Mediastinal space: A moderate size hiatal hernia is seen. Aorta: Unremarkable. No aortic aneurysm. Lymph nodes: Unremarkable. No enlarged lymph nodes. Gallbladder and bile ducts: Some dependent sludge is seen in the gallbladder. Bones/joints: No fracture dislocation is noted. Soft tissues: Unremarkable. IMPRESSION: 1. No acute fracture or dislocation. 2. Extensive coronary atherosclerosis 3. Moderate-sized hiatal hernia. 4. Cholelithiasis.
[2021-01-10 05:26] LABS: Basophils # 0.1 K/mm3 (0-0.2); Basophils % 0.4 % (0.1-2.0); Eosinophils # 0.5 K/mm3 (0.0-0.4); Eosinophils % 4.2 % (0.1-12.0); Hematocrit 32.7 % (42.0-52.0); Hemoglobin 10.1 g/dL (14.1-18.0); Lymphocytes # 2.7 K/mm3 (0.7-4.5); Lymphocytes % 22.3 % (10-50); Mean Corpuscular HGB Conc 30.9 g/dL (31.8-35.4); Mean Corpuscular Volume 103.8 fl (80-94); Monocytes # 0.6 K/mm3 (0.1-1.0); Neutrophils # 8.3 K/mm3 (1.8-7.8); Neutrophils % 68.1 % (37.0-80.0); Platelet Count 331 K/mm3 (142-424); Red Blood Count 3.15 M/mm3 (4.60-6.20); Red Cell Distribution Width 14.8 % (11.5-17.5); White Blood Count 12.2 K/mm3 (4.8-10.8)
[2021-01-10 05:30] VITALS: BP 106/51; PULSE 111; O2SAT 95
[2021-01-10 05:37] LABS: Alanine Aminotransferase 29 U/L (12-78); Albumin Level 3.8 g/dl (3.5-5.0); Albumin/Globulin Ratio 1.1 (1.1-1.8); Alkaline Phosphatase 116 U/L (38-126); Anion Gap 13.1 mEq/L (5-15); Aspartate Amino Transferase 51 U/L (17-59); Bilirubin,Total 0.5 mg/dl (0.2-1.3); Blood Urea Nitrogen 41 mg/dl (9-20); Calcium 9.3 mg/dl (8.4-10.2); Carbon Dioxide 28 mmol/L (22.0-30.0); Chloride 113 mmol/L (98-107); Creatinine Clearance Estimated 16 mL/min (50-200); Estimated Glomerular Filt Rate 20 ml/min (>60); GFR (African American) 24 ML/MIN (>60); Globulin 3.6 g/dL (1.3-3.2); Glucose 121 mg/dl (74-100); Potassium 5.1 mmoL/L (3.5-5.1); Sodium 149 mmol/L (136-145); Total Protein,Serum 7.4 g/dl (6.3-8.2)
--- NOTE | 2021-01-10 05:56 | PC.NURSE ---
Pt had incontinent urine, pt was cleaned and bed changed.
--- NOTE | 2021-01-10 08:05 | PC.NURSE ---
report called to clarence
[2021-01-10 08:53] VITALS: BP 106/78; PULSE 78; RESP 16; TEMP 36.6; O2SAT 98
== END 2021-01-10 08:54 | disposition home or self-care (01) ==
PROVIDERS: Emergency Provider Emergency Medicine; PCP Emergency Medicine
DX: M54.2 Cervicalgia (principal); R51.9 Headache, unspecified; W06.XXXA Fall from bed, initial encounter; Y92.129 Unspecified place in nursing home as the place of occurrence of the external cause; J44.9 Chronic obstructive pulmonary disease, unspecified; I25.10 Atherosclerotic heart disease of native coronary artery without angina pectoris; I10 Essential (primary) hypertension; Z87.891 Personal history of nicotine dependence; Z79.899 Other long term (current) drug therapy
CPT/HCPCS: 70450; 71250; 72125; 72128; 72131; 74176; 80053; 81001; 85025; 87086; 87088; 87186; 99284

== ENCOUNTER → 2021-01-10 23:51 | Outpatient (CLI) | payer MEDICARE, MEDICAID, SELFPAY ==
[2021-01-11 00:21] LABS: Microscopic, Urine URINE MICROSCOPIC (MICROSCOPIC)
[2021-01-11 00:24] LABS: Appearance,Urine CLOUDY (Clear); Bilirubin,Urine Negative (Negative); Blood, Urine 1+ (Negative); Color,Urine YELLOW (Yellow); Glucose,Urine (UA) Negative (Negative); Ketones,Urine Negative (Negative); Leukocyte Esterase,Urine 1+ (Negative); Nitrate,Urine Negative (Negative); PH,Urine 8.5 (5.0-8.5); Protein,Urine 1+ (Negative); Specific Gravity, Urine 1.015 (1.005-1.030); Urobilinogen,Urine 0.2 EU/dl (0.2)
[2021-01-11 00:29] LABS: WBC,Urine TNTC #/hpf (0-3)
== END ==
PROVIDERS: Visit Provider Emergency Medicine
DX: N39.0 Urinary tract infection, site not specified (principal)
CPT/HCPCS: 81001; 87086; 87088; 87186